=== PATIENT | female | born 1980 | race Caucasian/White ===

== ENCOUNTER 2021-08-01 12:21 | Emergency (ER) | payer MEDICAID, SELFPAY ==
[2021-08-01 12:33] VITALS: BP 142/88; PULSE 100; RESP 18; TEMP 36.4; O2SAT 100
--- NOTE | 2021-08-01 15:03 | ED.EXTPRO ---
HPI - Extremity Problem General Chief complaint: Extremity Problem,Nontraumatic Stated complaint: arm pain Time Seen by Provider: 08/01/21 14:48 History of Present Illness HPI Narrative: 41-year-old female presents the emergency room with pain in her right elbow that radiates to her thumb and index finger. Patient denies injury or trauma. 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 Patient states that she is having difficulty gripping items with her index finger and thumb. Related Data Home Medications Medication Instructions Recorded Confirmed amitriptyline 08/01/21 cyclobenzaprine mg 08/01/21 glipizide mg 08/01/21 hydrochlorothiazide 08/01/21 08/01/21 ibuprofen 08/01/21 meloxicam 08/01/21 metformin mg 08/01/21 sertraline mg 08/01/21 Allergies Allergy/AdvReac Type Severity Reaction Status Date / Time No Known Allergies Allergy Unknown Verified 08/01/21 12:36 Review of Systems Review of Systems: CONSTITUTIONAL: Denies fever, chills, or sweats. EYES: Denies visual changes, redness, or discharge. ENT: Denies rhinorrhea, congestion, sore throat, or otalgia. CARDIOVASCULAR: Denies chest pain, palpitations, or edema. RESPIRATORY: Denies cough or dyspnea. GASTROINTESTINAL: Denies abdominal pain, nausea, vomiting, or diarrhea. GENITOURINARY: Denies dysuria or hematuria. SKIN: Denies rash or itching. MUSCULOSKELETAL: Denies back pain, joint pain, or myalgia. Reports right elbow pain NEUROLOGIC: Denies headache, numbness, dizziness, or weakness. Reports decreased solution developer and pincher solution developer in right hand PSYCHIATRIC: Denies anxiety or depression. [facility] Past Medical History Medical History Anxiety Arthritis Depression Diabetes Ectopic Surgical History Surgical History History of tubal ligation Family History Family History Mother Atrial fibrillation Father Acute myocardial infarction Social History Social History Smoking status: Never smoker Exam Narrative: GENERAL: Well-appearing, well-nourished, and in no acute distress. HEAD: Normocephalic, atraumatic. EYES: PERRLA and EOMI. ENT: Nares clear, no rhinorrhea or epistaxis. Mucous membranes moist. Oropharynx without tonsillar hypertrophy exudate or other lesions. Bilateral TMs pearly barbosa nonbulging NECK: Supple. No adenopathy or masses. No carotid bruits or JVD CHEST: Clear to auscultation. No respiratory distress. No wheezes rales or rhonchi HEART: Regular rate and rhythm. No murmur heard. Normal peripheral pulses. ABDOMEN: Soft, nontender, nondistended, normal active bowel sounds. EXTREMITIES: Normal range of motion. No edema. That is fairly early elevated moves all extremities well. Strength 5/5 in right elbow and right wrist. Equal medical support specialist. SKIN: Warm, dry, no rash. NEURO: No focal deficits. Alert and oriented x3. PSYCH: Normal mood and affect. Course Vital Signs Vital signs: Vital Signs Temperature 36.4 C L 08/01/21 12:33 Pulse Rate 100 08/01/21 12:33 Respiratory Rate 18 08/01/21 12:33 Blood Pressure 142/88 H 08/01/21 12:33 Pulse Oximetry 100 08/01/21 12:33 Temperature 36.4 C L 08/01/21 12:33 Pulse Rate 100 08/01/21 12:33 Respiratory Rate 18 08/01/21 12:33 Blood Pressure 142/88 H 08/01/21 12:33 Pulse Oximetry 100 08/01/21 12:33 Discharge Plan Discharge Clinical Impression: Radial nerve entrapment Patient Disposition: Home, Self-Care Condition: Stable Instructions: Antibiotic Form Prescriptions: New prednisone 20 mg tablet 40 mg PO DAILY 5 Days Qty: 10 RF: 0 naproxen 500 mg tablet 500 mg PO BID Qty: 10 RF: 0 No Action glipizide 10 mg tablet RF: 0 amitriptyli
[2021-08-01] MEDS: KETOROLAC (*BKC) 60 MG/2 ML VIAL IM (15:12)
[2021-08-01 16:00] VITALS: BP 136/79; PULSE 97; RESP 16; O2SAT 98
== END 2021-08-01 16:00 | disposition home or self-care (01) ==
PROVIDERS: Emergency Provider Nurse Practitioner Family; PCP Family Medicine
DX: G58.8 Other specified mononeuropathies (principal); E11.9 Type 2 diabetes mellitus without complications; M19.90 Unspecified osteoarthritis, unspecified site; F41.9 Anxiety disorder, unspecified; F32.A Depression, unspecified; Z79.84 Long term (current) use of oral hypoglycemic drugs
CPT/HCPCS: 96372; 99284; J1100; J1885

== ENCOUNTER 2023-05-02 22:41 | Emergency (ER) | payer OTHER, SELFPAY ==
--- NOTE | ~2023-05-02 | XR_ITS ---
Right Hand Technique: PA, oblique, and lateral views were obtained. Clinical History: Third finger pain and swelling Findings: No acute fracture or dislocation is seen. Osseous alignment is anatomic. Joint spaces are p reserved. Soft tissues are unremarkable. Impression: Unremarkable right hand. Reviewed, dictated and finalized at location . LY SOCIOLOGIST Impression: Unremarkable right hand.
[2023-05-02 22:47] VITALS: BP 126/86; PULSE 100; RESP 14; TEMP 37; O2SAT 98
--- NOTE | 2023-05-02 23:20 | PC.NURSE ---
Assumed care of pt. Report from ABIGAIL Buchanan. Dr Martines at bedside.
--- NOTE | 2023-05-02 23:35 | ED.UPPEXIN ---
HPI - Extremity Injury (Upper) General Chief Complaint: Extremity Injury, Upper Stated Complaint: R middle finger swelling Time Seen by Provider: 05/02/23 23:11 History of Present Illness HPI narrative: This is a 43-year-old female, with history of diabetes, presenting to the emergency department complaining of pain and swelling of the right 3rd finger. The patient states she woke this morning and noticed swelling at the proximal aspect of the right middle finger associated with pain. She describes it as dull and sharp, rated 5/10 and worse with pleural finger, primarily closed fist. She states the swelling has not progressed though some has appeared in the right ring finger. She denies fevers, chills or known trauma. Related Data Home Medications Medication Instructions Recorded Confirmed amitriptyline 50 mg tablet 08/01/21 cyclobenzaprine 10 mg tablet mg 08/01/21 glipizide 10 mg tablet mg 08/01/21 hydrochlorothiazide 25 mg tablet 08/01/21 08/01/21 ibuprofen 800 mg tablet 08/01/21 meloxicam 7.5 mg tablet 08/01/21 metformin 1,000 mg tablet mg 08/01/21 sertraline 100 mg tablet mg 08/01/21 Allergies Allergy/AdvReac Type Severity Reaction Status Date / Time No Known Allergies Allergy Unknown Verified 08/01/21 12:36 Review of Systems Review of Systems: CONSTITUTIONAL: Denies fever, chills, or sweats. CARDIOVASCULAR: Denies chest pain, palpitations, or edema. RESPIRATORY: Denies cough or dyspnea. GASTROINTESTINAL: Denies abdominal pain, nausea, vomiting, or diarrhea. GENITOURINARY: Denies dysuria or hematuria. SKIN: mild swelling of the right 3rd finger Denies rash or itching. MUSCULOSKELETAL: right 3rd finger pain Denies back pain, joint pain, or myalgia. NEUROLOGIC: Denies headache, numbness, dizziness, or weakness. PSYCHIATRIC: Denies anxiety or depression. [facility] Past Medical History Medical History Anxiety Arthritis Depression Diabetes Ectopic Surgical History Surgical History History of tubal ligation Family History Family History Mother Atrial fibrillation Father Acute myocardial infarction Social History Social History Smoking status: Never smoker Exam Narrative: GENERAL: Well-developed, well-nourished, and in no acute distress. HEAD: Normocephalic, atraumatic. CHEST: Clear to auscultation. No respiratory distress. No wheezes rales or rhonchi HEART: Regular rate and rhythm. No murmur heard. Normal peripheral pulses. EXTREMITIES: Mild swelling of the right proximal 3rd finger without erythema. Tender to palpation over the ventral and dorsal aspect. Pain with flexion and extension of the finger. Small amount of swelling is noted at the proximal aspect of the right 4th finger with similar pain. Otherwise normal range of motion. No edema. NEURO: Alert and oriented x3. No focal deficit. Moving all 4 limbs spontaneously PSYCH: Normal mood and affect. Course Course Emergency Course: 23:30 - Bedside ultrasound of the right hand is not concerning for swelling or fluid collection around the flexor tendon of either the 3rd or 4th digits. 00:41 - X-ray by my review was not concerning for fracture, dislocation or bony changes consistent with osteomyelitis. White blood cell count within limits. Hemoglobin slightly decreased at 11.2 with baseline of 12.6 in 2019. ESR elevated at 45. I have some concern for flexor tenosynovitis, however the patient's swelling has not rapidly progressed and her white blood cell count is not elevated. I discussed the patient with hand surgeon, Dr. Arriaga. Will give a an IV dose of antibiotics and discharge with the same and close follow-up. The patient is comfortable with this plan. Discussed return and emergency
[2023-05-02] MEDS: KETOROLAC 30 MG/ML VIAL (*BKC) IM (23:45)
[2023-05-02 23:55] LABS: Basophils Percent Auto 0.3 % (0.2-1.2); Eosinophils Absolute Auto 0.1 K/mm3 (0-0.3); Eosinophils Percent Auto 1.2 % (0-4.4); Hematocrit 35.5 % (37.0-47.0); Hemoglobin 11.2 g/dL (12.0-15.0); Immature Granulocyte Absolute 0.02 K/mm3 (0.00-0.031); Immature Granulocyte Percent A 0.2 % (0-0.5); Lymphocytes Absolute Auto 3.15 K/mm3 (0.9-3.2); Lymphocytes Percent Auto 36.5 % (18.3-44.2); Mean Corpuscular HGB Conc 31.5 g/dl (32-36); Mean Corpuscular Hemoglobin 25.7 pg (26-34); Mean Corpuscular Volume 81.6 fl (80-100); Mean Platelet Volume 9.6 fl (7.4-10.4); Monocytes Absolute Auto 0.4 K/mm3 (0.1-0.6); Monocytes Percent Auto 4.8 % (2.6-8.5); Neutrophils Absolute Auto 4.9 K/mm3 (1.3-6.7); Platelet Count Result 278 k/mm3 (150-375); Red Blood Count 4.35 M/mm3 (4.2-5.4); Red Cell Distribution Width 14.6 % (11.5-14.5); White Blood Count 8.6 K/mm3 (4.5-10.0)
[2023-05-03 00:32] LABS: Erythrocyte Sedimentation Rate 45 mm/hr (0-20)
[2023-05-03 01:31] VITALS: BP 122/75; PULSE 85; RESP 14; O2SAT 98
== END 2023-05-03 01:33 | disposition home or self-care (01) ==
PROVIDERS: Emergency Provider Preventive Medicine Aerospace Medicine
DX: M79.644 Pain in right finger(s) (principal); M79.89 Other specified soft tissue disorders
CPT/HCPCS: 36415; 73130; 85025; 85652; 96365; 96372; 99284; J0696; J1885

== ENCOUNTER 2023-11-22 11:05 | Emergency (ER) | payer OTHER, SELFPAY ==
--- NOTE | ~2023-11-22 | XR_ITS ---
EXAMINATION: XR chest 2V DATE: 11/22/2023 11:35 INDICATION: Lateral left chest pain TECHNIQUE: frontal and lateral views of the chest were obtained. COMPARISON: Chest radiograph dated 04/20/2019 FINDINGS: The lungs remain clear with no focal airspace opacities, pulmonary edema, pleural effusion or pneumot horax. The cardiomediastinal silhouette is normal. Mild thoracic spondylosis. IMPRESSION: 1. No acute cardiopulmonary disease. Reviewed, dictated and finalized at location B.
--- NOTE | 2023-11-22 11:09 | ECG_ITS ---
Test Date: 2023-11-22 11:14:40 Measurements Intervals [place] Rate: 118 P: 83 NC: 143 QRS: 73 QRSD: 94 T: 71 QT: 340 QTc: 477 Interpretive Statements SINUS TACHYCARDIA POSSIBLE LEFT ATRIAL ENLARGEMENT BORDERLINE ST-T WAVE ABNORMALITY- INF/LAT LEADS BASELINE ARTIFACT- I, II, III, AVR, AVL, V2 ABNORMAL ECG No previous ECG available for comparison Electronically Signed On 11-22-2023 11:33:14 CDT by Bo Hernandez D.O.
[2023-11-22 11:15] VITALS: BP 142/92; PULSE 114; RESP 14; TEMP 36.7; O2SAT 98
[2023-11-22 11:52] VITALS: BP 150/96; PULSE 112; PULSE 115; RESP 12; TEMP 36.8; O2SAT 96
--- NOTE | 2023-11-22 12:11 | ED.CHESTPAIN ---
HPI - Chest Pain General Chief Complaint: Chest Pain Stated Complaint: left sided chest pain Time Seen by Provider: 11/22/23 12:10 Source: patient and family Mode of arrival: ambulatory Limitations: no limitations History of Present Illness HPI narrative: 43 years old white female came to the emergency room with her by private car complaining of intermittent pain at the left side of the mid axillary line started 3 days ago. Workup this morning with increased pain sharp, twisting, worse with certain positions and movement and breathing, feels better if she holding her arm against her body. She denies any recent physical activities or trauma. She denies any fever, chills, nausea, vomiting, or difficulty breathing. Patient denies having similar symptoms. History of diabetes hyperlipidemia depression anxiety marijuana use for chronic lower back pain Related Data Home Medications Medication Instructions Recorded Confirmed amitriptyline 50 mg tablet 08/01/21 cyclobenzaprine 10 mg tablet mg 08/01/21 glipizide 10 mg tablet mg 08/01/21 hydrochlorothiazide 25 mg tablet 08/01/21 08/01/21 ibuprofen 800 mg tablet 08/01/21 meloxicam 7.5 mg tablet 08/01/21 metformin 1,000 mg tablet mg 08/01/21 sertraline 100 mg tablet mg 08/01/21 atorvastatin 10 mg tablet 10 mg PO DAILY 05/10/23 insulin detemir U-100 100 unit/mL 40 unit subcut QHS 05/10/23 (3 mL) subcutaneous pen (Levemir FlexPen) liraglutide 0.6 mg/0.1 mL (18 mg/3 1.8 mg subcut DAILY 05/10/23 mL) subcutaneous pen injector (Victoza 2-Jong) Allergies Allergy/AdvReac Type Severity Reaction Status Date / Time No Known Allergies Allergy Unknown Verified 11/22/23 11:59 Review of Systems Review of Systems: All systems reviewed & are unremarkable except as noted in HPI and below PMFSH Past Medical History Medical History Anxiety Arthritis Depression Diabetes Ectopic Surgical History Surgical History History of tubal ligation Family History Family History Mother Atrial fibrillation Father Acute myocardial infarction Social History Social History Smoking status: Never smoker Exam Narrative: General appearance: Well-developed, well-nourished Skin: Normal color Head: Normocephalic, nontraumatic Eyes: Clear conjunctiva ENT: Oropharynx normal, ears normal, nose normal Neck: Supple, nontender Chest and respiratory: Airway patent, no respiratory distress, no accessory muscle use, severe tenderness left mid axillary, left upper chest, left upper back with slight light palpation. No bruises, no swelling or rash. Heart: Regular rate/rhythm Abdomen: Soft, nontender, no organomegaly, quiet bowel sounds Vascular: Normal peripheral pulses, normal capillary refill. Musculoskeletal: Normal range of motion, nontender back Neurologic: Alert and oriented ?3, ACID STRENGTH INSPECTOR is normal as tested, no gross motor deficit Course Vital Signs Vital signs: Vital Signs Temperature 36.7 C 11/22/23 11:15 Pulse Rate 114 H 11/22/23 11:15 Respiratory Rate 14 11/22/23 11:15 Blood Pressure 142/92 H 11/22/23 11:15 Pulse Oximetry 98 11/22/23 11:15 Oxygen Delivery Room Air 11/22/23 11:15 Temperature 36.8 C 11/22/23 11:52 Pulse Rate 112 H 11/22/23 11:52 Respiratory Rate 12 11/22/23 11:52 Blood Pressure 150/96 H 11/22/23 11:52 Pulse Oximetry 96 11/22/23 11:52 Oxygen Delivery Room Air 11/22/23 11:15 MDM - Chest Pain
[2023-11-22 12:16] LABS: Basophils Percent Auto 0.4 % (0.2-1.2); Eosinophils Absolute Auto 0.1 K/mm3 (0-0.3); Eosinophils Percent Auto 1.3 % (0-4.4); Hematocrit 40.3 % (37.0-47.0); Hemoglobin 12.7 g/dL (12.0-15.0); Immature Granulocyte Absolute 0.05 K/mm3 (0.00-0.031); Immature Granulocyte Percent A 0.6 % (0-0.5); Lymphocytes Percent Auto 27.8 % (18.3-44.2); Mean Corpuscular HGB Conc 31.5 g/dl (32-36); Mean Corpuscular Hemoglobin 26.1 pg (26-34); Mean Corpuscular Volume 82.8 fl (80-100); Mean Platelet Volume 9.6 fl (7.4-10.4); Monocytes Absolute Auto 0.5 K/mm3 (0.1-0.6); Monocytes Percent Auto 5.1 % (2.6-8.5); Neutrophils Absolute Auto 5.8 K/mm3 (1.3-6.7); Neutrophils Percent Auto 64.8 % (45.5-73.1); Platelet Count Result 320 k/mm3 (150-375); Red Blood Count 4.87 M/mm3 (4.2-5.4)
[2023-11-22 12:29] LABS: INR 0.9; Prothrombin Time 12.5 Seconds (11.1-14.7)
[2023-11-22 12:31] LABS: Partial Thromboplastin Time 24.3 Seconds (22.3-36.8)
[2023-11-22 12:37] LABS: Alanine Aminotransferase 27 U/L (6-35); Albumin Level 4.8 g/dL (3.5-5.1); Alkaline Phosphatase 108 U/L (38-126); Anion Gap 11 mmol/L (4-12); Aspartate Amino Transferase 36 U/L (14-36); Blood Urea Nitrogen 13 mg/dL (7-17); Calcium 9.4 mg/dL (8.4-10.2); Carbon Dioxide 27 mmol/L (22-30); Chloride 101 mmol/L (98-107); Estimated CRCL calculation 113 ml/min; Estimated Glomerular Filt Rate > 60; Glucose 156 mg/dL (65-110); Lipase 39 U/L (23-300); Potassium 3.5 mmol/L (3.4-5.0); Sodium 139 mmol/L (137-145)
[2023-11-22 12:49] LABS: Troponin I < 0.012 ng/mL (0.000-0.034)
[2023-11-22] MEDS: ONDANSETRON INJ 4 MG/2 ML VIAL IV PUSH (13:24)
[2023-11-22] MEDS: MORPHINE SULFATE (*CRX) 4 MG/ML INJ IV PUSH (13:24)
[2023-11-22 13:45] LABS: D Dimer < 0.27 ug/mL (<0.48)
[2023-11-22 14:46] VITALS: BP 126/93; PULSE 112; RESP 16; TEMP 37.1; O2SAT 98
== END 2023-11-22 14:47 | disposition home or self-care (01) ==
PROVIDERS: Emergency Medicine; Emergency Provider Emergency Medicine; PCP Family Medicine
DX: R07.89 Other chest pain (principal); E11.9 Type 2 diabetes mellitus without complications
CPT/HCPCS: 36415; 71046; 80053; 83690; 84484; 85025; 85380; 85610; 85730; 93005; 96374; 96375; 99284; J2270; J2405

== ENCOUNTER 2024-02-17 08:01 | Emergency (ER) | payer OTHER, SELFPAY ==
--- NOTE | ~2024-02-17 | XR_ITS ---
XR_CERV2-3V_CR Ordering provider: Bogdan Soni MD History: . NECK PAIN RADIATES INTO LT SHOULDER. NKI . Comparison: None. FINDINGS: VERTEBRAL BODIES: Normal height and alignment. No visible fracture or subluxation. The dens is intact . DISK SPACES: Well maintained. PARASPINOUS SOFT TISSUES: No prevertebral soft tissue swelling. IMPRESSION: No acute osseous abnormality cervical spine. Reviewed, dictated and finalized at location A.
[2024-02-17 08:06] VITALS: BP 149/89; PULSE 95; RESP 16; TEMP 36.7; O2SAT 100
--- NOTE | 2024-02-17 08:31 | ED.EXTPRO ---
HPI - Extremity Problem General Chief complaint: Extremity Problem,Nontraumatic Stated complaint: SHOULDER AND BACK PAIN Time Seen by Provider: 02/17/24 08:13 History of Present Illness HPI Narrative: 44 old female presenting to the emergency department for evaluation for recurrent left lateral neck pain. Patient states she did have some shoulder pain approximately a month ago and did have follow-up with her primary care physician. At that time patient was referred to outpatient physical therapy. Patient is unable to track down that paperwork and has been attempting to get follow-up again with primary care physician to have a another referral for physical therapy. Patient states few days ago she woke up was having worsening left lateral neck pain and the pain improved during the day. Patient states she woke up again this morning with similar pain. Patient denies any associated numbness or weakness of the left arm but does report sharp shooting pain of the left arm intermittently. Patient denies any specific falls or injuries. Patient denies any change in bowel bladder habits. Patient has been taking Tylenol and ibuprofen without significant improvement. Related Data Home Medications Medication Instructions Recorded Confirmed amitriptyline 50 mg tablet 08/01/21 cyclobenzaprine 10 mg tablet mg 08/01/21 glipizide 10 mg tablet mg 08/01/21 hydrochlorothiazide 25 mg tablet 08/01/21 08/01/21 ibuprofen 800 mg tablet 08/01/21 meloxicam 7.5 mg tablet 08/01/21 metformin 1,000 mg tablet mg 08/01/21 sertraline 100 mg tablet mg 08/01/21 atorvastatin 10 mg tablet 10 mg PO DAILY 05/10/23 insulin detemir U-100 100 unit/mL 40 unit subcut QHS 05/10/23 (3 mL) subcutaneous pen (Levemir FlexPen) liraglutide 0.6 mg/0.1 mL (18 mg/3 1.8 mg subcut DAILY 05/10/23 mL) subcutaneous pen injector (Victoza 2-Jong) Allergies Allergy/AdvReac Type Severity Reaction Status Date / Time No Known Allergies Allergy Unknown Verified 02/17/24 08:36 Review of Systems Review of Systems: All systems reviewed & are unremarkable except as noted in HPI and below PMFSH Past Medical History Medical History Anxiety Arthritis Depression Diabetes Ectopic Surgical History Surgical History History of tubal ligation Family History Family History Mother Atrial fibrillation Father Acute myocardial infarction Social History Social History Smoking status: Never smoker Exam Narrative: APPEARANCE: Well appearing, no pain, no distress, well-nourished. HEAD: normocephalic, atraumatic. EYES: PERRLA/EOMI, conjunctivae clear. NOSE: Normal no drainage EARS:TMS clear with good light reflex. THROAT: Pharynx clear, no exudate. NECK: Supple. No adenopathy, no masses. RESPIRATORY: Airway patent, respirations nonlabored. Clear to auscultation bilaterally, no rales, rhonchi, wheezing. CARDIOVASCULAR: Regular rate and rhythm without murmurs rubs or gallops. ABDOMINAL: Soft, nontender, nondistended, normal bowel sounds MUSCULOSKELETAL: Moves all extremities. Left lateral trapezius tenderness to palpation. NEURO: Alert. Cranial nerves II through XII intact. Good gait. Good coordination SKIN: Warm, dry. Normal Color Course Course Emergency Course: Patient was discharged home with medications for pain control Vital Signs Vital signs: Vital Signs Temperature 98.1 F 02/17/24 08:06 Pulse Rate 95 02/17/24 08:06 Respiratory Rate 16 02/17/24 08:06 Blood Pressure 149/89 H 02/17/24 08:06 Pulse Oximetry 100 02/17/24 08:06 Oxygen Delivery Room Air 02/17/24 08:06 Temperature 98.1 F 02/17/24 08:06 Pulse Rate 95 02/17/24 08:06 Respiratory Rate 16 02/17/24 08:06 Blood Pressure 149/89 H
[2024-02-17] MEDS: HYDROcodone/acetaminophen (*CRX) 5-325 MG TABLET 1 TAB PO (08:41)
[2024-02-17] MEDS: CYCLOBENZAPRINE HCL 10 MG TABLET PO (08:41)
== END 2024-02-17 09:27 | disposition home or self-care (01) ==
PROVIDERS: Emergency Provider Emergency Medicine; PCP Family Medicine
DX: S16.1XXA Strain of muscle, fascia and tendon at neck level, initial encounter (principal); T14.90XA Injury, unspecified, initial encounter; F41.8 Other specified anxiety disorders; E11.9 Type 2 diabetes mellitus without complications
CPT/HCPCS: 72040; 99283; A4565; A9270

== ENCOUNTER 2024-02-23 19:56 | Emergency (ER) | payer OTHER, SELFPAY ==
--- NOTE | ~2024-02-23 | XR_ITS ---
EXAMINATION: XR_CERV2-3V_CR DATE: 02/23/2024 22:53 INDICATION: Neck pain. TECHNIQUE: 3 views of cervical spine were obtained. COMPARISON: Cervical spine radiographs 02/17/2024 FINDINGS: There is hypolordosis of cervical spine. Vertebral body heights are normal. There is mildly decreased disc height at C5-C6 and C6-C7. There is severe facet joint osteoarthritis at C7-T1. No ce ntral canal stenosis or prevertebral soft tissue swelling. IMPRESSION: 1. Mild cervical spondylosis. Reviewed, dictated and finalized at location A.
--- NOTE | ~2024-02-23 | XR_ITS ---
EXAMINATION: XR shoulder LT min 2V DATE: 02/23/2024 22:53 INDICATION: Left shoulder pain. TECHNIQUE: 4 views of left shoulder were obtained. COMPARISON: None. FINDINGS: Alignment is normal. No fracture. There is mild osteoarthritis of glenohumeral joint and mo derate osteoarthritis of acromioclavicular joint. IMPRESSION: 1. Polyarticular osteoarthritis. Reviewed, dictated and finalized at location A.
[2024-02-23 19:59] VITALS: BP 165/98; PULSE 120; RESP 18; TEMP 36.4; O2SAT 100
[2024-02-23 21:52] VITALS: BP 154/94; PULSE 105; RESP 18; O2SAT 99
--- NOTE | 2024-02-23 23:14 | ED.NECK ---
HPI - Neck Pain/Injury General Chief Complaint: Neck Pain/Injury Stated Complaint: L neck and shoulder pain Time Seen by Provider: 02/23/24 22:48 History of Present Illness HPI Narrative: 44-year-old female with history of anxiety, arthritis, depression, DM presents to the emergency department for left neck and arm pain for greater than 1 week. Patient denies injury or trauma. States the pain in the left side of her neck and into her shoulder and travels down to her elbow. States she has been having intermittent numbness and tingling to the 1st and 2nd digit. States the pain is significantly worse when she tries to use her left shoulder. She denies clumsiness to the left hand or weakness. Denies fever, injury or trauma. Denies bowel or bladder incontinence, urinary retention. She was seen in our emergency department for the same pain on 02/17/2024 and was given [place] and Flexeril which she took with improvement. States she ran of her medications yesterday and is now experiencing pain again. She is being followed by her PCP regarding the pain obtain a referral for PT by her PCP. She states she is supposed to contact PT tomorrow to schedule an appointment. Related Data Home Medications Medication Instructions Recorded Confirmed amitriptyline 50 mg tablet 08/01/21 cyclobenzaprine 10 mg tablet mg 08/01/21 glipizide 10 mg tablet mg 08/01/21 hydrochlorothiazide 25 mg tablet 08/01/21 08/01/21 ibuprofen 800 mg tablet 08/01/21 meloxicam 7.5 mg tablet 08/01/21 metformin 1,000 mg tablet mg 08/01/21 sertraline 100 mg tablet mg 08/01/21 atorvastatin 10 mg tablet 10 mg PO DAILY 05/10/23 insulin detemir U-100 100 unit/mL 40 unit subcut QHS 05/10/23 (3 mL) subcutaneous pen (Levemir FlexPen) liraglutide 0.6 mg/0.1 mL (18 mg/3 1.8 mg subcut DAILY 05/10/23 mL) subcutaneous pen injector (Victoza 2-Jong) Allergies Allergy/AdvReac Type Severity Reaction Status Date / Time No Known Allergies Allergy Unknown Verified 02/23/24 19:57 Review of Systems Review of Systems: All systems reviewed & are unremarkable except as noted in HPI and below PMFSH Past Medical History Medical History Anxiety Arthritis Depression Diabetes Ectopic Surgical History Surgical History History of tubal ligation Family History Family History Mother Atrial fibrillation Father Acute myocardial infarction Social History Social History Smoking status: Never smoker Exam Narrative: GENERAL: Well-appearing, well-nourished, and in no acute distress. HEAD: Normocephalic, atraumatic. EYES: EOMI. ENT: Nares clear, no rhinorrhea or epistaxis. Mucous membranes moist. NECK: No midline cervical spinous tenderness, step-offs or deformities. No nuchal rigidity. Tenderness to the left cervical paraspinous muscles and left trapezius CHEST: Clear to auscultation. No respiratory distress. HEART: Regular rate and rhythm. No murmur heard. Normal peripheral pulses. EXTREMITIES: Diffuse tenderness to the left shoulder and humerus. Full range of motion of elbow, wrist and fingers. Full passive range of motion of left shoulder, limited active range of motion secondary to pain. No erythema, edema or warmth to the shoulder. Radial pulse 2 +. Sensation intact. Radian, medial and ulnar nerves intact on exam. 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 SKIN: Warm, dry, no rash. NEURO: No focal deficits. Alert and oriented x3 Course Vital Signs Vital signs: Vital Signs Temperature 97.6 F 02/23/24 19:59 Pulse Rate 120 H 02/23/24 19:59 Respiratory Rate 18 02/23/24 19:59 Blood Pressure 165/98 H 02/23/24 19:59 Pulse Oximetry 100 02/23/24 19:59 Oxygen Delivery Room Air 02/23/24 19:59
[2024-02-23] MEDS: dexAMETHasone SOD PHOS INJ 10 MG/ML 1 ML VIAL IM (23:20)
[2024-02-23] MEDS: CYCLOBENZAPRINE HCL 10 MG TABLET PO (23:20)
[2024-02-23] MEDS: KETOROLAC 30 MG/ML VIAL (*BKC) IM (23:23)
[2024-02-23] MEDS: LIDOCAINE 5% PATCH 1 PATCH TRANSDERM (23:24)
[2024-02-23 23:36] VITALS: BP 174/93; PULSE 112; RESP 19; O2SAT 100
== END 2024-02-23 23:37 | disposition home or self-care (01) ==
PROVIDERS: Emergency Provider Physician Assistant; PCP Family Medicine
DX: M54.12 Radiculopathy, cervical region (principal); E11.9 Type 2 diabetes mellitus without complications; M19.012 Primary osteoarthritis, left shoulder; F41.9 Anxiety disorder, unspecified; F32.A Depression, unspecified; Z79.85 Long-term (current) use of injectable non-insulin antidiabetic drugs; Z79.84 Long term (current) use of oral hypoglycemic drugs; Z79.899 Other long term (current) drug therapy
CPT/HCPCS: 72040; 73030; 96372; 99284; A9270; J1100; J1885

== ENCOUNTER 2024-05-10 14:02 | Emergency (ER) | payer OTHER, SELFPAY ==
--- NOTE | ~2024-05-10 | CT_ITS ---
CTA brain carotid Ordering provider: Bogdan Soni MD History: . Hypodensity in the area of the foramina of Monro . Comparison: None. Technique: CT angiogram head and neck was performed following timed intravenous injection of contrast . Thin slice axial images and reformatted coronal images were obtained. Three dimensional reformatted images of the brain were also obtained using a [employer] workstation. Radiation reduction technique ut ilized. The dose-length product was 1030.09 mGy-cm. 100 mL Omnipaque 350 was given IV. FINDINGS: HEAD: --ANTERIOR AND MIDDLE CEREBRAL ARTERIES AND BRANCHES: Normal caliber and contour. --INTERNAL CAROTID ARTERIES: Mild atheromatous disease but no significant stenosis. No occlusion. --BASILAR ARTERY AND BRANCHES: Normal caliber and contour. No atheromatous disease. --POSTERIOR CEREBRAL ARTERIES: Normal caliber and contour --POSTERIOR COMMUNICATING ARTERIES: The right continues as the right posterior cerebral artery. The l eft is not visualized which is probably related to congenital absence or small size. --ANEURYSM: None visualized. --BRAIN: Please refer to report of CT head performed the same day. --BONES AND SUPERFICIAL SOFT TISSUES: Please refer to report of CT head performed the same day. Lymph nodes are seen in the left axillary area with the largest measures 1 cm.. --PARANASAL SINUSES AND MASTOIDS: Please refer to report of CT head done the same day. NECK: --RIGHT CERVICAL CAROTID SYSTEM: Mild atheromatous disease of the carotid bulb and proximal internal carotid artery without significant stenosis. Percent stenosis per NASCET criteria is a 0%. No caroti d dissection. Otherwise, no significant atheromatous disease or stenosis of the cervical carotid syst em. --LEFT CERVICAL CAROTID SYSTEM: Mild atheromatous disease of the carotid bulb and proximal internal c arotid artery without significant stenosis. Percent stenosis per NASCET criteria is 0%. No carotid d issection. Otherwise, no significant atheromatous disease or stenosis of the cervical carotid system. --VERTEBRAL ARTERIES: Normal caliber and contour. --VISUALIZED AORTIC ARCH AND BRANCHING VESSELS: Mild atheromatous disease but no significant stenosis . --SOFT TISSUES: Normal. --CERVICAL SPINE: Normal. IMPRESSION: 1. CTA neck. Percent stenosis per NASCET criteria is 0%. 2. No occlusion or significant intracranial vascular stenosis seen. Reviewed, dictated and finalized at location A. GER FLOAT
--- NOTE | ~2024-05-10 | CT_ITS ---
CT brain wo con Ordering provider: Bogdan Soni MD History: 44 years Female with . trauma . Comparison: None. Technique: CT of the head without contrast. Radiation reduction technique utilized. The dose-length product was 605.33 mGy-cm. FINDINGS: BRAIN PARENCHYMA AND CSF SPACES: Small hyperdensity seen in the area of the foramen of Monro which ma y be a tiny colloid cyst versus choroid calcification versus a vascular structure and less likely blo od. Follow-up advised. No midline shift, or mass effect.. The brain parenchyma and CSF spaces are ot herwise normal. VISUALIZED PARANASAL SINUSES: Well aerated. MASTOIDS: Well aerated. BONES: The bones appear intact. SOFT TISSUES: Visualized nasopharynx is normal. Superficial soft tissues are normal. IMPRESSION: No definite acute intracranial findings. Hypodensity in the area of the foramina of Monro described above. Reviewed, dictated and finalized at location A. DCAST JOURNALIST
[2024-05-10 14:04] VITALS: BP 142/84; PULSE 113; RESP 18; TEMP 36.8; O2SAT 100
--- NOTE | 2024-05-10 14:15 | ECG_ITS ---
Test Date: 2024-05-10 14:37:21 Measurements Intervals [place] Rate: 99 P: 68 MI: 143 QRS: 54 QRSD: 97 T: 44 QT: 343 QTc: 441 Interpretive Statements SINUS RHYTHM Compared to ECG 11/22/2023 11:14:40 Sinus tachycardia no longer present Electronically Signed On 05-10-2024 14:49:30 HAIR ROOTING MACHINE OPERATOR by Mychal Antonio M.D.
[2024-05-10 14:36] VITALS: BP 140/77; PULSE 107; RESP 20; O2SAT 100
[2024-05-10 14:43] LABS: Basophils Percent Auto 0.5 % (0.2-1.2); Eosinophils Absolute Auto 0.1 K/mm3 (0-0.3); Eosinophils Percent Auto 1.1 % (0-4.4); Hemoglobin 13.2 g/dL (12.0-15.0); Immature Granulocyte Absolute 0.03 K/mm3 (0.00-0.031); Immature Granulocyte Percent A 0.4 % (0-0.5); Lymphocytes Absolute Auto 2.38 K/mm3 (0.9-3.2); Lymphocytes Percent Auto 28.3 % (18.3-44.2); Mean Corpuscular HGB Conc 32.2 g/dl (32-36); Mean Corpuscular Hemoglobin 26.7 pg (26-34); Mean Platelet Volume 10.4 fl (7.4-10.4); Monocytes Absolute Auto 0.4 K/mm3 (0.1-0.6); Monocytes Percent Auto 4.5 % (2.6-8.5); Neutrophils Absolute Auto 5.5 K/mm3 (1.3-6.7); Neutrophils Percent Auto 65.2 % (45.5-73.1); Platelet Count Result 300 k/mm3 (150-375); Red Blood Count 4.94 M/mm3 (4.2-5.4); Red Cell Distribution Width 14.4 % (11.5-14.5); White Blood Count 8.4 K/mm3 (4.5-10.0)
[2024-05-10 14:54] LABS: Alanine Aminotransferase 33 U/L (6-35); Albumin Level 4.3 g/dL (3.5-5.1); Alkaline Phosphatase 105 U/L (38-126); Anion Gap 6 mmol/L (4-12); Aspartate Amino Transferase 49 U/L (14-36); Bilirubin,Total 0.9 mg/dL (0.2-1.3); Blood Urea Nitrogen 15 mg/dL (7-17); Calcium 9.3 mg/dL (8.4-10.2); Carbon Dioxide 28 mmol/L (22-30); Chloride 101 mmol/L (98-107); Estimated CRCL calculation 105 ml/min; Estimated Glomerular Filt Rate > 60; Glucose 177 mg/dL (65-110); Potassium 3.9 mmol/L (3.4-5.0); Sodium 135 mmol/L (137-145)
[2024-05-10 15:25] LABS: Influenza A QL RT-PCR Negative (Negative); Influenza B QL RT-PCR Negative (Negative); RSV RNA, RT-PCR Negative (Negative); SARS-CoV-2 RNA PCR Negative (Negative)
[2024-05-10 15:39] LABS: BEDSIDEPREGUCG Negative (Negative)
--- NOTE | 2024-05-10 15:51 | ED.GENADULT ---
HPI - General Adult General Chief complaint: Fall Stated complaint: fall x2 days ago, +LOC, dizziness Time Seen by Provider: 05/10/24 14:10 History of Present Illness HPI narrative: [age] female presenting to the emergency department for evaluation after having a fall on Wednesday. Patient states she had chest got in the shower when she had mechanical fall causing her to strike her head, patient does report that she had loss of consciousness. Patient states since Wednesday she has had intermittent dizziness and lightheadedness. Patient reports no further loss of consciousness. Related Data Home Medications ?Medication ?Instructions ?Recorded ?Confirmed ?Last Taken ?Type amitriptyline 50 mg tablet 08/01/21 Unknown History cyclobenzaprine 10 mg tablet mg 08/01/21 Unknown History glipizide 10 mg tablet mg 08/01/21 Unknown History hydrochlorothiazide 25 mg tablet 08/01/21 08/01/21 Unknown History ibuprofen 800 mg tablet 08/01/21 Unknown History meloxicam 7.5 mg tablet 08/01/21 Unknown History metformin 1,000 mg tablet mg 08/01/21 Unknown History sertraline 100 mg tablet mg 08/01/21 Unknown History atorvastatin 10 mg tablet 10 mg PO DAILY 05/10/23 Unknown History insulin detemir U-100 100 unit/mL 40 unit subcut QHS 05/10/23 Unknown History (3 mL) subcutaneous pen (Levemir FlexPen) liraglutide 0.6 mg/0.1 mL (18 mg/3 1.8 mg subcut DAILY 05/10/23 Unknown History mL) subcutaneous pen injector (Victoza 2-Jong) Allergies Allergy/AdvReac Type Severity Reaction Status Date / Time No Known Allergies Allergy Unknown Verified 05/10/24 14:03 Review of Systems Review of Systems: All systems reviewed & are unremarkable except as noted in HPI and below PMFSH Past Medical History Medical History Anxiety Arthritis Depression Diabetes Ectopic Surgical History Surgical History History of tubal ligation Family History Family History Mother Atrial fibrillation Father Acute myocardial infarction Social History Social History Smoking status: Never smoker Exam Narrative: APPEARANCE: Well appearing, no pain, no distress, well-nourished. HEAD: normocephalic, atraumatic. EYES: PERRLA/EOMI, conjunctivae clear. NOSE: Normal no drainage EARS:TMS clear with good light reflex. THROAT: Pharynx clear, no exudate. NECK: Supple. No adenopathy, no masses. RESPIRATORY: Airway patent, respirations nonlabored. Clear to auscultation bilaterally, no rales, rhonchi, wheezing. CARDIOVASCULAR: Regular rate and rhythm without murmurs rubs or gallops. ABDOMINAL: Soft, nontender, nondistended, normal bowel sounds MUSCULOSKELETAL: Moves all extremities. Strength/ROM intact, No edema, No calf tenderness. NEURO: Alert. Cranial nerves II through XII intact. Good gait. Good coordination SKIN: Warm, dry. Normal Color Course Course Emergency Course: patient felt improved and was discharged home Vital Signs Vital signs: Vital Signs Temperature 98.3 F 05/10/24 14:04 Pulse Rate 113 H 05/10/24 14:04 Respiratory Rate 18 05/10/24 14:04 Blood Pressure 142/84 H 05/10/24 14:04 Pulse Oximetry 100 05/10/24 14:04 Oxygen Delivery Room Air 05/10/24 14:04 Temperature 97.8 F 05/10/24 16:47 Pulse Rate 94 05/10/24 16:47 Respiratory Rate 16 05/10/24 16:47 Blood Pressure 127/80 05/10/24 16:47 Pulse Oximetry 97 05/10/24 16:47 Oxygen Delivery Room Air 05/10/24 14:04 Medical Decision Making [facility] Narrative Medical decision making narrative: [age] old female presenting to the emergency department for evaluation after having a head injury on Wednesday. Patient is alert and orientated. Patient is afebrile with no leukocytosis and hemoglobin of 13.2 patient has no acute abnormalities on her CMP patient was negative friend RSV and for COVID. CT head did show possible cyst versus less likely bleed at the [place] [facility]. CTA was ordered and showed no active bleeding. Patient was encouraged of close follow-up with her primary care physician. Vital Signs Vital Signs: Vital Signs Temperature 98.3 F 05/10/24 14:04 Pulse Rate 113 H 05/10/24 14:04 Respiratory Rate 18 05/10/24 14:04 Blood Pressure 142/84 H 05/10/24 14:04 Pulse Oximetry 100 05/10/24 14:04 Oxygen Delivery Room Air 05/10/24 14:04 Temperature 97.8 F 05/10/24 16:47 Pulse Rate 94 05/10/24 16:47 Respiratory Rate 16 05/10/24 16:47 Blood Pressure 127/80 05/10/24 16:47 Pulse Oximetry 97 05/10/24 16:47 Oxygen Delivery Room Air 05/10/24 14:04 Lab Data 05/10/24 14:35 05/10/24 14:35 Labs: Lab Results 05/10/24 05/10/24 05/10/24 Range/Units 14:35 15:34 15:38 WBC 8.4 (4.5-10.0) K/mm3 RBC 4.94 (4.2-5.4) M/mm3 Hgb 13.2 (12.0-15.0) g/dL Hct 41.0 (37.0-47.0) % MCV 83.0 (80-100) fl MCH 26.7 (26-34) pg MCHC 32.2 (32-36) g/dl RDW 14.4 (11.5-14.5) % Plt Count 300 (150-375) k/mm3 MPV 10.4 (7.4-10.4) fl Immature Gran % (Auto) 0.4 (0-0.5) % Neut % (Auto) 65.2 (45.5-73.1) % Lymph % (Auto) 28.3 (18.3-44.2) % [place] % (Auto) 4.5 (2.6-8.5) % Eos % (Auto) 1.1 (0-4.4) % Baso % (Auto) 0.5 (0.2-1.2) % Lymph # (Auto) 2.38 (0.9-3.2) K/mm3 [place] # (Auto) 0.4 (0.1-0.6) K/mm3 Eos # (Auto) 0.1 (0-0.3) K/mm3 Baso # (Auto) 0.0 (0.0-0.1) K/mm3 Abs Immat Gran (auto) 0.03 (0.00-0.031) K/mm3 Absolute Neuts (auto) 5.5 (1.3-6.7) K/mm3 Absolute Nucleated RBC 0.000 (0.0-0.012) K/mm3 Nucleated RBC % 0.0 (0.0-0.2) % Sodium 135 L (137-145) mmol/L Potassium 3.9 (3.4-5.0) mmol/L Chloride 101 (98-107) mmol/L Carbon Dioxide 28 (22-30) mmol/L Anion Gap 6 (4-12) mmol/L BUN 15 (7-17) mg/dL Creatinine 0.80 (0.7-1.0) mg/dL Estim Creat Clear Calc 105 ml/min Estimated GFR > 60 (59 - ) Glucose 177 H (65-110) mg/dL Calcium 9.3 (8.4-10.2) mg/dL Total Bilirubin 0.9 (0.2-1.3) mg/dL AST 49 H (14-36) U/L ALT 33 (6-35) U/L Alkaline Phosphatase 105 (38-126) U/L Total Protein 7.0 (6.3-8.2) g/dL Albumin 4.3 (3.5-5.1) g/dL Urine Color Yellow (Yellow) Urine Appearance Cloudy H (Clear) Urine pH 5.5 (5.0-9.0) Ur Specific [place] 1.035 (1.001-1.035) Urine Protein Negative (Negative) mg/dL Urine Glucose (UA) Negative (Negative) mg/dL Urine Ketones Negative (Negative) mg/dL Ur Blood (Man) Negative (Negative) Urine Nitrate Negative (Negative) Urine Bilirubin Negative (Negative) Urine Urobilinogen 0.2 (<2.0) mg/dL Leukocyte Esterase Rfl 1+ H (Negative) RAVIN/UL Urine RBC 0-2 (0-2) /hpf Urine WBC 6-10 H (0-3) /hpf Ur Squamous Epith Cells Many H (Few) /hpf Urine Bacteria 3+ H /hpf Urine Casts 6-10 Hyaline Casts Present (None) /lpf POC Urine HCG, Qual Negative (Negative) Influenza A (RT-PCR) Negative (Negative) Influenza B (RT-PCR) Negative (Negative) RSV (RT-PCR) Negative (Negative) SARS-CoV-2 RNA (RT-PCR) Negative (Negative) Discharge Plan Discharge Clinical Impression: Head injury Patient Disposition: Home, Self-Care Condition: Stable Instructions: Antibiotic Form, Concussion (ED), Head Injury (ED) Additional Instructions: Your CT scan showed a small hyperdensity seen in the area of the foramen of Monro which may be a tiny colloid cyst versus choroid calcification versus a vascular structure. The CT scan with contrast showed no acute bleeding. Have follow-up with your primary care physician regarding this finding. If you have any worsening symptoms then please call or return to the emergency department. Patient Language: Citizen Of [place] Prescriptions: No Action atorvastatin 10 mg tablet 10 mg PO DAILY Victoza 2-Jong 0.6 mg/0.1 mL (18 mg/3 mL) pen injector 1.8 mg subcut DAILY Levemir FlexPen 100 unit/mL (3 mL) insulin pen 40 unit subcut QHS cefpodoxime 200 mg tablet 400 mg PO Q12H 7 Days Qty: 28 0RF Rx Instructions: must administer with a meal/food glipizide 10 mg tablet amitriptyline 50 mg tablet meloxicam 7.5 mg tablet metformin 1,000 mg tablet cyclobenzaprine 10 mg tablet ibuprofen 800 mg tablet sertraline 100 mg tablet hydrochlorothiazide 25 mg tablet prednisone 20 mg tablet 40 mg PO DAILY 5 Days Qty: 10 0RF naproxen 500 mg tablet 500 mg PO BID Qty: 10 0RF omeprazole 40 mg capsule,delayed release(DR/EC) 40 mg PO DAILY Qty: 30 0RF hydrocodone-acetaminophen 5-325 mg tablet 1 tablet PO Q12H PRN (Reason: pain) Qty: 14 0RF cyclobenzaprine 10 mg tablet 10 mg PO BID PRN (Reason: muscle spasm) Qty: 14 0RF methylprednisolone [Medrol (Jong)] 4 mg tablets,dose pack See Rx Instructions PO .COMPLEX Qty: 21 0RF Rx Instructions: orally per package directions cyclobenzaprine 10 mg tablet 10 mg PO TID PRN (Reason: muscle spasm) Qty: 14 0RF lidocaine 5 % adhesive patch,medicated 1 patch topical DAILY Qty: 15 0RF Rx Instructions: leave on most painful area for up to 12 hrs. do not use more than 1 patch in a 24-hour period. Follow-up/Referrals: Cody,Jennifer Kraus MD [Primary Care Provider] -
[2024-05-10 15:54] LABS: Add Urine Microscopic? YES; Appearance Urine Cloudy (Clear); Bacteria Urine 3+ /hpf; Bilirubin Urine Negative (Negative); Blood Urine Negative (Negative); Color Urine Yellow (Yellow); Glucose Urine UA Negative (Negative); Hyaline Casts Urine Present /lpf; Ketones Urine Negative (Negative); Leukocyte Esterase Ur 1+ LEU/UL (Negative); Nitrate Urine Negative (Negative); Protein Urine Negative (Negative); RBC Urine 0-2 /hpf (0-2); Specific Grav Ur 1.035 (1.001-1.035); Squamous Epithelial Cell Urine Many /hpf (Few); Urobilinogen Urine 0.2 mg/dL (<2.0); pH Urine 5.5 (5.0-9.0)
[2024-05-10 16:47] VITALS: BP 127/80; PULSE 94; RESP 16; TEMP 36.6; O2SAT 97
== END 2024-05-10 16:25 | disposition home or self-care (01) ==
LOC: ANHED 16:02
PROVIDERS: Emergency Provider Emergency Medicine; PCP Family Medicine
DX: S06.9X9A Unspecified intracranial injury with loss of consciousness of unspecified duration, initial encounter (principal); Z20.822 Contact with and (suspected) exposure to COVID-19; E11.9 Type 2 diabetes mellitus without complications; M19.90 Unspecified osteoarthritis, unspecified site; F41.9 Anxiety disorder, unspecified; F32.A Depression, unspecified; Z79.85 Long-term (current) use of injectable non-insulin antidiabetic drugs; Z79.84 Long term (current) use of oral hypoglycemic drugs; Z79.899 Other long term (current) drug therapy; R93.0 Abnormal findings on diagnostic imaging of skull and head, not elsewhere classified; W18.2XXA Fall in (into) shower or empty bathtub, initial encounter
CPT/HCPCS: 36415; 70450; 70496; 70498; 80053; 81001; 81025; 85025; 87086; 87637; 93005; 99284; Q9967

== ENCOUNTER 2024-07-08 10:32 | Emergency (ER) | payer OTHER, SELFPAY ==
[2024-07-08 10:33] VITALS: BP 146/82; PULSE 116; RESP 16; TEMP 36.4; O2SAT 100
--- OUTSIDE RECORDS SUMMARY | 2024-07-08 10:35 | XMS_ITS | Clinical Summary ---
Author Organization [facility] Address [address] [place] [id number] Care Team Providers Care Palaeontologist Name Role Phone Jennifer Ross MD Primary Care Provider [phone] Allergies Active Allergy Reactions Criticality Noted Date Comments Poison Loulou Extract Other (See comments) Low 024 Medications cyclobenzaprine (FLEXERIL) 10 mg tablet Take 1 tablet (10 mg total) by mouth 3 (three) times a day as needed for muscle spasms 15 tablet Active insulin syringe-needle U-100 0.5 mL 31 gauge x 5/16 syringe TRUEplus Insulin 0.5 mL 31 gauge x 5/16 syringe USE DIRECTED Active alcohol swabs pads, medicated daily Acti ve amitriptyline (ELAVIL) 50 mg tablet Active fluticasone propionate (FLONASE) 50 mcg/actuation nasal spray fluticasone propionate 50 mcg/actuation nasal spray,suspension USE 2 SPRAY(S) IN EACH NOSTRIL ONCE DAILY Active glipiZIDE (GLUCOTROL) 10 mg tablet Take 1 tablet (10 mg total) by mouth 2 (two) times a day Active hydroCHLOROthiazi de (HYDRODIURIL) 25 mg tablet hydrochlorothiazide 25 mg tablet Take 1 tablet by mouth once daily Active LEVEMIR 100 unit/mL vial for injection INJECT 40 UNITS UNDER THE SKIN EVERY MORNING AND 30 UNITS EVERY EVENING FOR DIABETES Active Victoza 2-Jong 0.6 mg/0.1 mL (18 mg/3 mL) injection INJECT 1.2 MG UNDER THE SKIN EVERY DAY Active meloxicam (MOBIC) 7.5 mg tablet Take 7.5 mg by mouth 2 (two) times a day Active metFORMIN (GLUCOPHAGE) 1,000 mg tablet Active ondansetron ODT (ZOFRAN-ODT) 4 mg disintegrating tablet DISSOLVE 1 TABLET IN MOUTH ONCE DAILY NEEDED FOR NAUSEA AND VOMITING Active sertraline (ZOLOFT) 100 mg tablet sertraline 100 mg tablet Take 1 tablet by mouth once daily Active TRUEplus Pen Needle 31 gauge x 5/16 needle USE DIRECTED TWO TIMES A DAY Active lancets 33 gauge misc OneTouch Delica Plus Lancet 33 gauge USE DIRECTED THREE TIMES A DAY Active blood glucose diagnostic (OneTouch Verio test strips) strip OneTouch Verio test strips USE DIRECTED THREE TIMES DAILY Active blood-glucose meter misc OneTouch Verio Flex Meter USE DIRECTED THREE TIMES DAILY Active insulin syringe-needle U-100 0.5 mL 31 gauge x 5/16 syringe TRUEplus Insulin 0.5 mL 31 gauge x 5/16 syringe USE DIRECTED THREE TIMES DAILY Active pen needle, diabetic 31 gauge x 1/4 needle TRUEplus Pen Needle 31 gauge x 1/4 USE DIRECTED WITH VICTOZA Active pen needle, diabetic 31 gauge x 5/16 needle TRUEplus Pen Needle 31 gauge x 5/16 USE DIRECTED TWO TIMES A DAY Active atorvastatin (LIPITOR) 10 mg tablet atorvastatin 10 mg tablet TAKE 1 TABLET BY MOUTH ONCE DAILY Active Active Problems Problem Noted Date Diagnosed Date Obstructive sleep apnea 01/20/2023 Headache 09/23/2022 09/23/2022 Morbid obesity 09/23/2022 09/23/2022 Hypersomnia 09/23/2022 BMI 45.0-49.9, adult 09/23/2022 Psychophysiological insomnia 09/23/2022 Family history of sleep apnea 09/23/2022 Nonsmoker 09/23/2022 Restless legs 09/23/2022 Carpal tunnel syndrome on left 02/26/2022 Overview (02/26/2022): Added automatically from request for surgery [id number] Traumatic incomplete tear of left rotator cuff 0 01/13/2022 Pain in joint of left shoulder 09/16/2021 0 09/23/2022 Trigger thumb of right hand 03/25/2021 05/0 07/2022 Depressive disorder 01/28/2021 09/23/2022 Hypertensive disorder 12/24/2020 09/23/2022 Chronic low back pain 12/26/2018 09/23/2022 Diabetes mellitus 07/18/2014 09/23/2022 Medical History Medical History Date Comments Diabetes mellitus (HCC) Thyroid disease Depression Anxiety Family History Medical History Relation Name Comments Cancer Father Heart disease Father Arthritis Mother Cancer Mother Diabetes Mother Gout Mother Heart disease Mother Relation Name Status Comments Father Mother Social History Tobacco Use Types Packs/Day Years Used Date Smoking Tobacco: Never Tobacco Cessation:Counseling Given: Not Answered Comments No Sex and Gender Information Value Date Recorded Sex Assigned at Not on file 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 Gender Identity Not on file Sexual Orientation Not on file 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 Not on file Not on file Not on file house Not on file Not on file Not on file Obstetrics History Last Filed Vital Signs Vital Sign Reading Time Taken Comments Blood Pressure 116/60 09/15/2023 2:10 PM CDT Pulse 112 09/15/2023 2:10 PM CDT Temperature 36.7 C (98.1 F) 09/15/2023 2:10 PM CDT Respiratory Rate 18 09/15/2023 2:10 PM CDT Oxygen Saturation 97% 09/15/2023 2:10 PM CDT Inhaled Oxygen Concentration - - Weight 138.3 kg (305 lb) 09/15/2023 2:10 PM CDT Height 167.6 cm (5' 6 ) 09/15/2023 2:10 PM CDT Body Mass Index 49.23 09/15/2023 2:10 PM CDT Plan of Treatment Health Maintenance Due Date Last Done Comments Albumin Creatinine Ratio, Urine 1980 Breast Cancer Screening-Mammogram 1980 Cervical Cancer Screening 1980 Depression Screening 1980 Hemoglobin A1C 1980 Hepatitis C Screening 1980 eGFR 1980 Dilated Eye Exam 1980 Foot Exam 1980 Lipid Panel 1980 Varicella Vaccines (1 of 2 - 13+ 2-dose series) 02/08/1993 Hepatitis B Screening 02/08/1998 Regular Well Visit/Exam 18-64 02/08/1998 Pneumococcal vaccine <65 (2 of 2 - PCV) 10/13/2016 10/14/2015 Covid-19 Vaccine (3 - season) 2024 05/12/2021, 09/19/2020 Influenza Vaccine (#1) 2024 , 04/30/2020, 07/02/2017, Additional history exists DTaP/Tdap/Td Vaccine (2 - Td or Tdap) 10/13/2025 10/14/2015 HPV Vaccines Aged Out No longer eligi ble based on patient's age to complete this topic Insurance [facility] Care Teams Palaeontologist Relationship Specialty Start Date End Date Jennifer Ross MD PCP - General Hide Inspector 06/06/21
--- OUTSIDE RECORDS SUMMARY | 2024-07-08 10:35 | XMS_ITS | Clinical Summary ---
Author Organization [facility] Address [address] [place] [address] Care Team Providers Care Pinmaker Name Role Phone Jennifer Ross MD Primary Care Provider [phone] Allergies Active Allergy Reactions Criticality Noted Date Comments Poison Loulou Extract Unknown 03/25/2021 Medications metFORMIN 1000 MG tablet 02/29/20 21 Active meloxicam 7.5 MG tablet 02/17/20 21 Active sertraline 100 MG tablet sertraline 100 mg tablet TAKE 1 TABLET BY MOUTH ONCE DAILY Active ondansetron 4 MG disintegrating tablet ondansetron 4 mg disintegrating tablet Active liraglutide (VICTOZA) 18 MG/3ML injection Victoza 3-Jong 0.6 mg/0.1 mL (18 mg/3 mL) subcutaneous pen injector Start o.1 mL daily X 1 week, then increase to 0.2mL daily Active insulin detemir (LEVEMIR) 100 UNIT/ML injection every 12 (twelve) hours. Active cyclobenzaprine 10 MG tablet 02/29/20 21 Active amitriptyline 50 MG tablet amitriptyline 50 mg tablet TAKE 1 TABLET BY MOUTH AT BEDTIME Active glipiZIDE 10 MG tablet glipizide 10 mg tablet TAKE 1 TABLET BY MOUTH TWICE DAILY Active Acetaminophen (TYLENOL ARTHRITIS PAIN OR) Active Active Problems Problem Noted Date Diagnosed Date Trigger thumb of right hand 03/25/2021 Encounters Date Type Department Care Team Description 04/25/2024 Discharge [facility] [place]patient [place] [address] Pavel Ngo, PT from Last 3 Months Family History Medical History Relation Comments Cancer Father Heart Attack Father Cancer Mother Heart Disease Mother Relation Status Comments Father Mother Social History Tobacco Use Types Packs/Day Years Used Date Smoking Tobacco: Never Smokeless Tobacco: Never Tobacco Cessation:Counseling Given: No Alcohol Use Standard Drinks/Week Comments Not Currently 0 (1 standard drink = 0.6 oz pur e alcohol) PHQ-2 Answer Date Recorded PHQ-2 Score - If the patient scores above 3, please move on to questions 3-9 0 03/25/2021 Comments Unknown Sex and Gender Information Value Date Recorded Sex Assigned at Not on file Legal Sex Female 4:48 PM CDT Gender Identity Female 10/01/2021 11:08 AM CDT Sexual Orientation Straight 10/01/2021 11 :08 AM CDT Last Filed Vital Signs Vital Sign Reading Time Taken Comments Blood Pressure 120/90 03/25/2021 2:01 PM CDT Pulse 95 03/25/2021 2:01 PM CDT Temperature - - Respiratory Rate - - Oxygen Saturation - - Inhaled Oxygen Concentration - - Weight 138.1 kg (304 lb 6.4 oz) 03/25/2021 2:01 PM CDT Height - - Body Mass Index - - Plan of Treatment Health Maintenance Due Date Last Done Comments Cervical Cancer Screening Pap Smear (Age 30 to 64) Every 3 Years 1980 Annual Physical 02/08/1983 Hepatitis C 02/08/1998 Hepatitis B Vaccines (1 of 3 - 19+ 3-dose series) 02/08/1999 Cervical Cancer Screening Pap with HPV Testing (Age 30 to 64) Every 5 Years 02/08/2010 Cervical Cancer Screening with HPV 02/08/2010 Mammogram Screening 2020 COVID-19 Vaccine ( season) 2024 08/04/2022, 05/12/2021, 09/19/2020 DTaP, Tdap and Td Vaccines (2 - Td or Tdap) 10/13/2025 10/14/2015 Pneumococcal Vaccine: Pediatrics (0 to 5 Years) and At-Risk Patients (6 to 64 Years) Aged Out 10/14/2015 No longer eligible based on patient's age to complete this topic Influenza Adult Completed 02/01/2024, 12/2020, 04/30/2020, Additional history exists HPV Vaccines Aged Out No longer eligi ble based on patient's age to complete this topic Meningococcal B Vaccine Aged Out No l onger eligible based on patient's age to complete this topic Meningococcal Vaccine Aged Out No wendy vianey eligible based on patient's age to complete this topic RSV Immunizations Under 20 Months Aged Out No longer eligible based on patient's age to complete this topic Insurance [employer] Care Teams Pinmaker Relationship Specialty Start Date End Date Jennifer Ross MD [address] [facility] [id number] [place], [place] [id number] PCP - General 10/14/15
--- OUTSIDE RECORDS SUMMARY | 2024-07-08 10:35 | XMS_ITS | Referral Summary ---
Author Organization [facility] Address [address] [place] [phone] Care Team Providers Care Prototype Model Maker Name Role Phone Jennifer Ross MD Primary Care Provider [phone] Allergies Active Allergy Reactions Criticality Noted Date [...] (02/26/2022): Added automatically from request for surgery [id number] Traumatic incomplete tear of left rotator cuff 0 01/13/2022 Pain in joint of left shoulder 09/16/2021 0 09/23/2022 Trigger thumb of right hand 03/25/2021 05/0 07/2022 Depressive disorder 01/28/2021 09/23/2022 Hypertensive disorder 12/24/2020 09/23/2022 Chronic low back pain 12/26/2018 09/23/2022 Diabetes mellitus 07/18/2014 09/23/2022 Social History Tobacco Use Types Packs/Day Years Used Date Smoking Tobacco: Never Tobacco Cessation:Counseling Given: Not Answered Comments No Sex and Gender Information Value Date Recorded Sex Assigned at Not on file 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
--- OUTSIDE RECORDS SUMMARY | 2024-07-08 10:36 | XMS_ITS | Data Portability ---
Author Organization [facility] Angel WEISSwicho Saxena Address [address] [place] [address] Care Team Providers Care Store Assistant Name Role Phone IRINA ROSS Primary Care Provider Assessment No assessment recorded. Plan of Treatment Reminders Order Date Submit Date Provider Last Modified By Organization Details Last Modified Time Details Appointments ANY 15 2024 11:00A M Irina Ross MD Not available Not available Not available Lab HbA1c (hemog lobin A1c), blood 2024 025 [email or web address] In-Office Order, Internal Use Only DO Not Attach Compendium DO Not Attach Compendium, Do Not Delete/merge, [id number] 06/27/2024 20:16:01 HbA1c (hemog lobin A1c), blood 2023 024 [email or web address] In-Office Order, Internal Use Only DO Not Attach Compendium DO Not Attach Compendium, Do Not Delete/merge, [id number] 03/24/2024 12:39:59 albumi n/crea tinine , mass ratio, urine 2023 024 [facility], [address], [address], [place], [address], 03/25/2024 09:14:34 lipid panel, serum 2023 024 [facility], [address], [address], [place], [address], 03/25/2024 09:14:36 CMP, serum or plasma 2023 024 [facility], [address] [address], [place], [address], 03/25/2024 09:14:37 HbA1c (hemog lobin A1c), blood 2023 024 [email or web address] In-Office Order, Internal Use Only DO Not Attach Compendium DO Not Attach Compendium, Do Not Delete/merge, [id number] 12/14/2023 13:34:33 CMP, serum or plasma 2023 024 [facility], [address] [facility] [address], [address], [place], [address], 06/15/2023 14:37:51 lipid panel, serum 2023 024 [facility], [address], [address], [place], [address], 06/15/2023 14:37:50 albumi n/crea tinine , mass ratio, urine 2023 024 [facility], [address], [address], [place], [address], 06/15/2023 14:37:51 HbA1c (hemog lobin A1c), blood 2023 024 [email or web address] In-Office Order, Internal Use Only DO Not Attach Compendium DO Not Attach Compendium, Do Not Delete/merge, [id number] 06/15/2023 20:32:59 Referral physic al therap ist referr al - 43yo F with cervic al radicu lopath y X 4-6 weeks. please evalua te and treat. 2023 024 [facility], [facility] [facility], [place], [address], 02/22/2024 13:11:38 Procedures None record ed. Surgeries None record ed. Imaging MRI, cervic al spine, w/o contra st [address] Scheduling, [facility], [place], [address], 05/04/2024 11:07:39 Medication Orders topira mate 50 mg tablet [address] [facility] [address] [facility], [address] [place] [address], [id number], 06/28/2024 09:54:57 Levemi r U-100 Insuli n 100 unit/m L subcut aneous soluti on [address], [address] [place] [address], [id number], 06/28/2024 10:01:14 cyclob enzapr ine 5 mg tablet [address] [facility], [address] [place] [address], [id number], 06/28/2024 10:00:39 predni sone 10 mg tablet 2023 025 [facility], [address] [place] [address], [id number], 06/28/2024 10:01:11 fluoxe mehul 20 mg capsul e [address] [facility], [address] [place] [address], [id number], 02/01/2024 11:14:28 fluoxe mehul 10 mg capsul e 2023 024 [facility], [address] [place] [address], [id number], 02/01/2024 11:15:08 cyclob enzapr ine 10 mg tablet [address] [facility], [address] [place], [address], 03/24/2024 12:50:21 glipiz jacoby 10 mg tablet 2023 024 [facility], [address] [place], [address], 06/15/2023 14:47:14 Patient TargetsNo targets recorded. Patient Instructions Encounter Date Encounter Id Patient Instructions Last Modified By Organization Details Last Modified Time 06/15/2023 [id number] A healthy lifestyle: care instructions ana8 Not available 06/15/2023 20:33:28 12/14/2023 [id number] A healthy lifestyle: care instructions Not available 12/14/2023 13:56:32 02/01/2024 [id number] A healthy lifestyle: care instructions Not available 02/01/2024 11:33:06 06/27/2024 [id number] A healthy lifestyle: care instructions Not available 06/28/2024 10:03:55 Reason for Referral Physical Therapist Referral for Cervical radiculopathy 43yo F with cervical radiculopathy X 4-6 weeks. please evaluate and treat. Referring Physician: Irina Ross, Record Searcher, Encounter Date: 12/14/2023 Results Created Date Observation Date Name Description Value Unit Range Abnormal Flag Note LastModifiedBy Organization Detail LastModifiedTime 06/15/1906/15/2023 HbA1c (hemo globi n A1c), blood HbA1c 6.6 Not Available In-Office Order Internal Use Only DO Not Attach Compendium DO Not Attach Compendium, Do Not Delete/merge, [id number] 06/15/2023 14:49:50 12/14/19 24 12/14/2023 HbA1c (hemo globi n A1c), blood HbA1c 6.8 Not Available In-Office Order Internal Use Only DO Not Attach Compendium DO Not Attach Compendium, Do Not Delete/merge, [id number] 12/14/2023 12:52:14 03/24/20 24 03/25/2024 ALBUM IN/CR EATIN INE RATIO ,URIN E creatinine, urine 44.3 mg/dL notest ab. Not Available [facility] ([facility]) [address] [facility], [place], [address], 03/25/2024 09:14:34 03/24/20 24 03/25/2024 ALBUM IN/CR EATIN INE RATIO ,URIN E albumin, urine 5.8 ug/mL notest ab. Not Available [facility] ([facility]) [address] [facility], [place], [address], 03/25/2024 09:14:34 03/24/20 24 03/25/2024 ALBUM IN/CR EATIN INE RATIO ,URIN E alb/creat ratio 13 mg/g_ creat 0-29 Janis l: 0 - 29 Moder ately incre ased: 30 - 300 Sever vivek incre ased: >300 Not Available [facility] ([facility]) [address] [facility], [place], [address], 03/25/2024 09:14:34 03/24/20 24 03/25/2024 LIPID PANEL cholesterol, total 175 mg/dL 100-19 9 Not Available [facility] ([facility]) [address] [facility], [place], [address], 03/25/2024 09:14:35 03/24/20 24 03/25/2024 LIPID PANEL triglyceride s 215 mg/dL 0-149 above high normal Not Available [facility] ([facility]) [address] [place], [address], 03/25/2024 09:14:35 03/24/20 24 03/25/2024 LIPID PANEL HDL cholesterol 43 mg/dL >39 Not Available [facility] ([facility]) [address] [facility], [place], [address], 03/25/2024 09:14:35 03/24/20 24 03/25/2024 LIPID PANEL VLDL cholesterol kaylynn 37 mg/dL 5-40 Not Available [facility] ([facility]) [address] [facility], [place], [address], 03/25/2024 09:14:35 03/24/20 24 03/25/2024 LIPID PANEL LDL chol calc ([facility]) 95 mg/dL 0-99 Not Available [facility] ([facility]) [address] [facility], [place], [address], 03/25/2024 09:14:35 03/24/20 24 03/25/2024 CMP14 +EGFR glucose 356 mg/dL 70-99 above high normal Not Available [facility] ([facility]) [address] [facility], [place], [address], 03/25/2024 09:14:37 03/24/20 24 03/25/2024 CMP14 +EGFR BUN 12 mg/dL 6-24 Not Available [facility] ([facility]) [address] [facility], [place], [address], 03/25/2024 09:14:37 03/24/20 24 03/25/2024 CMP14 +EGFR creatinine 0.75 mg/dL 0.57-1 .00 Not Available [facility] ([facility]) [address] [facility], [place], [address], 03/25/2024 09:14:37 03/24/20 24 03/25/2024 CMP14 +EGFR eGFR 101 mL/mi n/1.7 3 >59 Not Available [facility] ([facility]) [address] [facility], [place], [address], 03/25/2024 09:14:37 03/24/2003/25/2024 CMP14 +EGFR BUN/creatini ne ratio 16 9-23 Not Available [facility] ([facility]) [address] [facility], [place], [address], 03/25/2024 09:14:37 03/24/20 24 03/25/2024 CMP14 +EGFR sodium 134 mmol/ L 134-14 4 Not Available [facility] ([facility]) [address] [place], [address], 03/25/2024 09:14:37 03/24/2003/25/2024 CMP14 +EGFR potassium 3.9 mmol/ L 3.5-5. 2 Not Available [facility] ([facility]) [address] [facility] [place], [address], 03/25/2024 09:14:37 03/24/2003/25/2024 CMP14 +EGFR chloride 94 mmol/ L 96-106 below low normal Not Available [facility] ([facility]) [address] [place], [address], 03/25/2024 09:14:37 03/24/2003/25/2024 CMP14 +EGFR carbon dioxide, total 27 mmol/ L 20-29 Not Available [facility] ([facility]) [address] [facility], [place], [address], 03/25/2024 09:14:37 03/24/2003/25/2024 CMP14 +EGFR calcium 9.1 mg/dL 8.7-10 .2 Not Available [facility] ([facility]) [address] [facility], [place], [address], 03/25/2024 09:14:37 03/24/2003/25/2024 CMP14 +EGFR protein, total 6.9 g/dL 6.0-8. 5 Not Available [facility] ([facility]) [address] [facility] [place], [address], 03/25/2024 09:14:37 03/24/2003/25/2024 CMP14 +EGFR albumin 4.1 g/dL 3.9-4. 9 Not Available [facility] ([facility]) [address] [facility] [place], [address], 03/25/2024 09:14:37 03/24/2003/25/2024 CMP14 +EGFR globulin, total 2.8 g/dL 1.5-4. 5 Not Available [facility] ([facility]) [address] [facility], [place], [address], 03/25/2024 09:14:37 03/24/20 24 03/25/2024 CMP14 +EGFR bilirubin, total 0.3 mg/dL 0.0-1. 2 Not Available [facility] ([facility]) [address] [facility], [place], [address], 03/25/2024 09:14:37 03/24/20 24 03/25/2024 CMP14 +EGFR alkaline phosphatase 115 IU/L 44-121 Not Available [facility] ([facility]) [address] [facility], [place], [address], 03/25/2024 09:14:37 03/24/20 24 03/25/2024 CMP14 +EGFR AST (SGOT) 13 IU/L 0-40 Not Available [facility] ([facility]) [address] [facility], [place], [address], 03/25/2024 09:14:37 03/24/20 24 03/25/2024 CMP14 +EGFR ALT (SGPT) 14 IU/L 0-32 Not Available [facility] ([facility]) [address] [facility], [place], [address], 03/25/2024 09:14:37 03/24/20 24 03/24/2024 HbA1c (hemo globi n A1c), blood HbA1c 10.6 Not Available In-Office Order Internal Use Only DO Not Attach Compendium DO Not Attach Compendium, Do Not Delete/merge, [id number] 03/24/2024 12:13:54 06/27/19 25 06/27/2024 HbA1c (hemo globi n A1c), blood HbA1c 9.9 Not Available In-Office Order Internal Use Only DO Not Attach Compendium DO Not Attach Compendium, Do Not Delete/merge, [id number] 06/27/2024 16:28:48 02/17/20 24 02/17/2024 XR, cervi kaylynn spine No observ ation record ed. [address], [place], [address], 02/23/2024 13:16:30 02/24/20 24 02/23/2024 XR, cervi kaylynn spine No observ ation record ed. [address], [place], [address], 02/24/2024 10:19:02 05/10/20 24 05/10/2024 CT, head + brain , w/o contr ast No observ ation record ed. [address], [place], [address], 05/14/2024 12:32:43 Result Notes None recorded. Problems Name Problem SNOMED Code Status Onset Date Resolution Date Notes Provider Name and Address Organization Details Recorded Time Chronic low back pain 282353242 Active 2018 Jennifer bowen RN null, [place] - [facility] 9 09:02:01 Hyperten sive disorder 34721546 Active 2020 Irina Ross MD Attn: Yong dunham,[address] [place], [address], [place] [facility] 3 21:28:07 Depressi ve disorder 23354092 Active 2020 Irina Ross MD Attn: Yong dunham,[address] [place], [address], [place] [facility] 3 21:28:07 Pain of left shoulder joint 58763371387 760730 Completed 202106/01/2022 Irina Ross MD Attn: Yong dunham,[address] [place], [address], [place] [facility] 3 21:28:12 Diabetes mellitus 90801307 Active 2014 Glucose >400 at ER Thania Hong MA null, [place] - [facility] 6 12:51:08 Morbid obesity 557131828 Active Irina Ross MD Attn: Yong dunham,[address] [facility], [place], [address], [facility] 3 21:28:07 CT of head abnormal 050440632 Active 202305/10/24 CT needs f/u MRI Irina Ross MD Attn: Yong dunham,[address] [facility], [place], [address], [facility] 4 12:32:27 Headache 60610816 Active Irina Ross MD Attn: Yong dunham,[address] [facility], [place], [address], [facility] 3 21:28:07 Problem Notes None recorded. Procedures Surgical History Date Name Laterality Status Provider Name and Address Organization Details Recorded Time Other completed Irina Ross MD Attn: Accounting,[address] [facility], [place], [address], [facility] 11/29/2014 11:29:16 Imaging Results Imaging Date Name Status LastModified by Organiz ation Details LastModified Time 02/17/2024 XR, cervical spine completed [address], [address], 02/23/2024 13:16:30 02/23/2024 XR, cervical spine completed [address], [address], 02/24/2024 10:19:02 05/10/2024 CT, head + brain, w/o contrast completed [address], [address], 05/14/2024 12:32:43 Procedure Notes None recorded. Medical Equipment None Reported. Allergies Allergen ID Allergen Name Allergen Category Reaction Reaction Severity Criticality Documentation Date Start Date Code Code System Note Provider Name and Address Organization Details Recorded Time 459150 poison kirstin extract environme nt Not available Not available Not available 01/28/2021 63607 6 RxNorm Not Available Not Available Not Available No known drug allergies Medications Name Sig Start Date Stop Date Status Note LastModified by Organization Details LastModified Time Prescript ion - Prior Authoriza tion Request active Not Available Not Available Not Available cyclobenz aprine 10 mg tablet TAKE 1 TABLET BY MOUTH THREE TIMES DAILY 03/24 completed Not Available Not Available Not Available metformin 500 mg tablet Take 1 tablet twice a day by oral route. 11/29 completed Not Available Not Available Not Available BD Alcohol Swabs USE 1 SWAB EXTERNAL LY ONCE DAILY active Not Available Not Available No t Available prednison e 10 mg tablet TAKE 4 TABLETS BY MOUTH ONCE DAILY FOR 3 DAYS, THEN 3 TABLETS ONCE DAILY FOR 3 DAYS,THE N 2 TABLETS DAILY FOR 2 DAYS,THE N 1 TABLET DAILY FOR 3 DAYS THEN 1/2 TABLET DAILY FOR 3 DAYS 06/28 completed Not Available Not Available Not Available clindamyc in HCl 300 mg capsule 06/15 completed Not Available Not Available Not Available atorvasta tin 10 mg tablet TAKE 1 TABLET BY MOUTH ONCE DAILY active Not Available Not Available No t Available cefpodoxi me 200 mg tablet Take by oral route for 7 days. 06/15 completed Not Available Not Available Not Available ibuprofen 800 mg tablet TAKE 1 TABLET BY MOUTH THREE TIMES DAILY NEEDED 12/13 completed Not Available Not Available Not Available hydrocodo ne 5 mg-acetam inophen 325 mg tablet TAKE 1 TABLET BY MOUTH EVERY 12 HOURS NEEDED FOR PAIN 03/24 completed Not Available Not Available Not Available prochlorp erazine maleate 5 mg tablet TAKE 1 TABLET BY MOUTH EVERY 6 HOURS NEEDED FOR HEADACHE active Not Available Not Available No t Available glipizide 10 mg tablet TAKE 1 TABLET BY MOUTH ONCE DAILY IN THE MORNING active Not Available Not Available No t Available prednison e 20 mg tablet TAKE 2 TABLETS BY MOUTH ONCE DAILY FOR 5 DAYS 09/08 completed Not Available Not Available Not Available sertralin e 100 mg tablet TAKE 1 TABLET BY MOUTH ONCE DAILY 12/13 completed Not Available Not Available Not Available Lantus U-100 Insulin 100 unit/mL subcutane ous solution Inject 30 units twice a day by subcutan eous route for 30 days. 06/03 completed Not Available Not Available Not Available acetamino phen 300 mg-codein e 15 mg tablet 12/13 completed Not Available Not Available Not Available prochlorp erazine maleate 10 mg tablet TAKE 1 TABLET BY MOUTH EVERY 6 HOURS NEEDED active 05/27/20 rx sent for 5mg #15/2 refills. Confirme d with pharm pt has refills remainin g on 5mg. Pharm states pt picked up 5mg tabs 05/27/20 and 10mg tabs 06/06/20. Not Available Not Available Not Available omeprazol e 40 mg capsule,d elayed release TAKE 1 CAPSULE BY MOUTH ONCE DAILY active Not Available Not Available No t Available tramadol 50 mg tablet Take by oral route for 20 days. 06/01 completed Not Available Not Available Not Available amitripty line 50 mg tablet TAKE 1 TABLET BY MOUTH ONCE DAILY AT BEDTIME 06/28 completed Not Available Not Available Not Available amoxicill in 500 mg tablet 12/13 completed Not Available Not Available Not Available meloxicam 7.5 mg tablet TAKE 1 TABLET BY MOUTH TWICE DAILY 06/01 completed Not Available Not Available Not Available alprazola m 0.25 mg tablet 11/21 completed Not Available Not Available Not Available citalopra m 20 mg tablet TAKE 1 TABLET BY MOUTH ONCE DAILY 01/28 completed Not Available Not Available Not Available amitripty line 25 mg tablet TAKE 1 TABLET BY MOUTH ONCE DAILY AT BEDTIME active Not Available Not Available No t Available dicyclomi ne 20 mg tablet 11/21 completed Not Available Not Available Not Available metformin 1,000 mg tablet TAKE 1 TABLET BY MOUTH TWICE DAILY active Not Available Not Available No t Available prednison e 50 mg tablet TAKE 1 TABLET BY MOUTH ONCE DAILY FOR 5 DAYS 09/08 completed Not Available Not Available Not Available lidocaine 5 % topical patch APPLY ONE PATCH TOPICALL Y TO CLEAN, DRY SKIN. LEAVE ON FOR 12 HOURS THEN REMOVE. MUST WAIT AT LEAST 12 HOURS BEFORE APPLYING PATCH(ES ) AGAIN. active Not Available Not Available No t Available fluoxetin e 10 mg capsule TAPER OFF OF SERTRALI NE, START 1 CAPSULE BY MOUTH ONCE DAILY FOR 7 DAYS, THEN INCREASE TO 2 CAPSULES BY MOUTH DAILY 01/31 completed Not Available Not Available Not Available hydrochlo rothiazid e 25 mg tablet TAKE 1 TABLET BY MOUTH ONCE DAILY active Not Available Not Available No t Available ibuprofen 600 mg tablet 12/13 completed Not Available Not Available Not Available methylpre dnisolone 4 mg tablets in a dose pack 03/24 completed Not Available Not Available Not Available ondansetr on 4 mg disintegr ating tablet DISSOLVE 1 TABLET IN MOUTH ONCE DAILY NEEDED FOR NAUSEA AND VOMITING active Not Available Not Available No t Available cefdinir 300 mg capsule TAKE 1 CAPSULE BY MOUTH EVERY 12 HOURS WITH A MEAL FOR 7 DAYS 06/15 completed Not Available Not Available Not Available fluoxetin e 20 mg capsule TAKE 1 CAPSULE BY MOUTH ONCE DAILY active Not Available Not Available No t Available fluticaso ne propionat e 50 mcg/actua tion nasal spray,martha pension USE 2 SPRAY(S) IN EACH NOSTRIL ONCE DAILY active Not Available Not Available No t Available sertralin e 50 mg tablet TAKE 1 TABLET BY MOUTH ONCE DAILY 01/28 completed Not Available Not Available Not Available glipizide 5 mg tablet TAKE ONE TABLET BY MOUTH TWICE DAILY 07/15 completed Not Available Not Available Not Available naproxen 500 mg tablet TAKE 1 TABLET BY MOUTH TWICE DAILY active Not Available Not Available No t Available oxycodone 5 mg tablet TAKE 1 TABLET BY MOUTH EVERY 4 HOURS NEEDED FOR PAIN 06/01 completed Not Available Not Available Not Available cyclobenz aprine 5 mg tablet Take 1 tablet by mouth three times daily as needed 06/28 completed Not Available Not Available Not Available topiramat e 50 mg tablet Take 1 tablet twice a day by oral route. 2024 active Not Available Not Available Not Avai lable Levemir U-100 Insulin 100 unit/mL subcutane ous solution INJECT 45 UNITS UNDER THE SKIN EVERY MORNING AND 30 UNITS EVERY EVENING FOR DIABETES 2024 active Not Available Not Available Not Avai lable OneTouch Verio test strips USE 1 STRIP TO CHECK GLUCOSE THREE TIMES DAILY DIRECTED active Not Available Not Available No t Available TRUEplus Insulin 0.5 mL 31 gauge x 5/16 syringe USE DIRECTED THREE TIMES DAILY active Not Available Not Available No t Available TRUEplus Insulin 0.5 mL 30 gauge x 5/16 syringe USE ONE with instulin twice daily active Not Available Not Available No t Available Victoza 3-Jong 0.6 mg/0.1 mL (18 mg/3 mL) subcutane ous pen injector INJECT 1.8 MG SUBCUTAN EOUSLY ONCE DAILY active Not Available Not Available No t Available Trulicity 0.75 mg/0.5 mL subcutane ous pen injector Inject 0.75 mg every week by subcutan eous route. 02/17 completed will adjust dosing monthly until 4.5mg Not Available Not Available Not Available OneTouch Verio Flex Meter USE DIRECTED 2023 active Not Available Not Available Not Avai lable TRUEplus Pen Needle 31 gauge x 5/16 USE DIRECTED TWO TIMES A DAY 06/01 completed Not Available Not Available Not Available TRUEplus Pen Needle 31 gauge x 1/4 USE 1 PEN NEEDLE ONCE DAILY TO ADMINIST ER MEDICATI ON active Not Available Not Available No t Available OneTouch Delica Plus Lancet 33 gauge USE DIRECTED THREE TIMES A DAY active Not Available Not Available No t Available Vitals Date Recorded Body height Heart rate Oxygen saturation Oxygen saturation in Arterial blood by Pulse oximetry Body mass index (BMI) Body weight Body temperature Systolic blood pressure Diastolic blood pressure Provider Name and Address Organization Details Last Updated DateTime 4 166.37 cm 103 /min 99 % 99 % 48.5 kg/m2 880076. 34 g 97.3 [degF] 135 mm[Hg] 83 mm[Hg] Carol Ann Hickey MA [facility] 4 14:24:18 Date Recorded Body height Body mass index (BMI) Body weight Body temperature Heart rate Systolic blood pressure Diastolic blood pressure Provider Name and Address Organization Details Last Updated DateTime 4 166.37 cm 47.4 kg/m2 335207. 19 g 98 [degF] 120 /min 110 mm[Hg] 79 mm[Hg] Thania Hong [place] [facility] 4 12:13:12 Date Recorded Body height Body mass index (BMI) Body weight Heart rate Oxygen saturation Oxygen saturation in Arterial blood by Pulse oximetry Body temperature Systolic blood pressure Diastolic blood pressure Provider Name and Address Organization Details Last Updated DateTime 4 166.37 cm 48.3 kg/m2 043499. 75 g 112 /min 99 % 99 % 97.7 [degF] 128 mm[Hg] 85 mm[Hg] Morenita Lucía dickey MA [facility] 4 10:57:15 Date Recorded Body height Body mass index (BMI) Body weight Heart rate Oxygen saturation Oxygen saturation in Arterial blood by Pulse oximetry Body temperature Systolic blood pressure Diastolic blood pressure Provider Name and Address Organization Details Last Updated DateTime 4 166.37 cm 46.5 kg/m2 228743. 23 g 94 /min 97 % 97 % 97.1 [degF] 138 mm[Hg] 83 mm[Hg] Shawna Cash [facility] 4 11:22:39 Date Recorded Body height Body mass index (BMI) Body weight Body temperature Heart rate Oxygen saturation Oxygen saturation in Arterial blood by Pulse oximetry Systolic blood pressure Diastolic blood pressure Provider Name and Address Organization Details Last Updated DateTime 5 166.37 cm 45.9 kg/m2 457863. 86 g 97.7 [degF] 94 /min 98 % 98 % 138 mm[Hg] 85 mm[Hg] Carol Ann Hickey MA [facility] 5 14:06:34 Social History Question Answer Notes LastModified by Organizat ion Details LastModified Time Tobacco Smoking Status Never Smoker Irina Ross MD Attn: [facility],[address] [place], [address], [facility] 11/29/2014 11:14:40 What Is Your Level Of Alcohol Consumption? None [email or web address] Information not available 08/03/2014 What Was The Date Of Your Most Recent Tobacco Screening? 06/27/2024 [email or web address] Information not available 06/27/2024 Do You Use Any Illicit Or Recreational Drugs? No [email or web address] Information not available 02/28/2021 Do You Or Have You Ever Used Any Other Forms Of Tobacco Or Nicotine? No [email or web address] Information not available 01/28/2021 Sex: Unknown Functional Status None recorded. Mental Status None recorded. Family History Relationship Description Onset Age of this Age Resolved Age Notes LastModified by Organization Details LastModified Time Mother Diabetes mellitus [email or web address] Not available 2014 15:44:26 Medical History Condition Response Diabetes Y Other Y Gynecological HistoryNo gynecological history recorded. Obstetrics History GPAL:G 0 P 0 0 0 0 Immunizations Vaccine Type Date Status Note Provider Nam e and Address Organization Details Recorded Time Tdap 6 completed Not Available [facility] 06/10/2019 02:42:34 pneumococcal polysaccharide PPV23 6 completed Not Available [facility] 06/10/2019 02:29:54 COVID-19 vaccine, vector-nr, rS-Ad26, PF, 0.5 mL 1 completed Yesika Faye null, [place] [facility] 10/16/2020 09:49:08 COVID-19 vaccine, vector-nr, rS-Ad26, PF, 0.5 mL 1 completed Beata Romero [place], [place] [facility] 05/12/2021 15:41:37 Influenza, split virus, quadrivalent, preservative 6 completed Not Available [facility] 06/10/2019 02:50:26 COVID-19, mRNA, LNP-S, bivalent, PF, 50 mcg/0.5 mL or 25mcg/0.25 mL dose 3 completed Mela Kamara CMA [place], [place] [facility] 08/18/2022 14:22:52 Influenza, split virus, quadrivalent, preservative 8 completed Not Available [facility] 06/10/2019 02:42:02 Influenza, split virus, quadrivalent, PF 0 completed Marah Mccarthy [place], [place] [facility] 04/30/2020 17:55:04 Influenza, split virus, quadrivalent, PF 1 completed Shawna Cash [place] [facility] 02/28/2021 17:46:52 Influenza, split virus, trivalent, PF 4 completed Carol Ann Hickey [place] [facility] 02/01/2024 11:44:05 Influenza, split virus, trivalent, PF 4 completed Irina Ross MD Attn: Accounting[address] [place], [address], [place] [facility] 03/24/2024 12:39:59 Past Encounters Encounter ID Performer Location Encounter Start Date Encounter Closed Date Diagnosis/Indication Diagnosis SNOMED-CT Code Diagnosis ICD10 Code Diagnosis Note [id number] MD Arnie Douglas ([facility]) [address] [place] [address] 08/03/2014 11:32:39 08/09/2014 03:51:25 Type 2 diabetes mellitus [id number] Goal A1C <7.0. Unknown Control today as she is a new diabetic. Discussed lifestyle changes including increasing exercise and healthy diet. Last A1C Performed: Obtain today for relative baseline, then check another at 3 month carlos from start of metformin. Lipid Panel:Obta in today. Urine Microprote in:Obtain today. Last Dilated Eye Exam: Referral placed. Last Monofilame nt Foot Exam: Perform next visit. Pneumovax: Discuss next visit Return to Clinic in 1 month. [id number] Georgiana murray FP ([facility]) [address] [place] [address] 11/29/2014 10:17:11 11/29/2014 11:34:16 Diabetes mellitus 98014618 -Increase metformin -Start checking FBG -Lab reviewed, TLC recommende d -No ACEI or statin due to possibilit y of future -Weight loss recommende d Gynecologi c examination [id number] MD Georgiana Douglas FP ([facility]) [address] [place] [address] 10/14/2015 15:39:07 10/15/2015 09:30:11 Type 2 diabetes mellitus 92139619 E11.9 -A1c high and reviewed -Add glipizide -Annual lab ordered for 3 months from now -Foot exam done -Recommend ed annual eye exam -Pneumovax and TdaP today -Pap UTD Knee pain 26875106 M25.5 61 -NSAIDS and PT -Weight loss recommende d Active or passive immunization 101133726 Z23 [id number] MD Georgiana Douglas FP ([facility]) [address] [place] [address] 02/21/2016 11:21:06 02/24/2016 10:11:08 Increased frequency of urination 645076733 R35.0 -Due to hyperglyce sergio-Patien t notified Diabetes mellitus 447496 09 E11.9 -Glipizide increased to 5mg bid-Contin ue metformin- A1c ordered for April-F /U 3 months Active or passive immunization 620040211 Z23 [id number] MD Georgiana Douglas FP ([facility]) [address] [place] [address] 07/02/2017 13:47:07 07/06/2017 14:09:54 Diabetes mellitus 15673214 E11.9 -Labs due and ordered-PC V 23 UTD-No ACEI due to age/female -Flu shot UTD-Given number for [facility] office for eye exam -Weight loss and nutrition reviewed Active or passive immunization 251657228 Z23 Migraine 24451352 G43.90 9 [id number] MD Georgiana Douglas FP ([facility]) [address] [place] [address] 09/15/2018 13:50:17 09/20/2018 14:15:31 Diabetes mellitus 09446017 E11.9 -Uncontrol led, A1c 10.3% today-Star t insulin 20 units daily (instructi ons printed)-C ontinue glipizide and metformin with plan to wean off glipizide- Labs due and ordered-Ne eds ACEI, but still in child bearing age-Needs statin, but not current contracept ion-Health y weight, exercise, and nutrition reviewed-F /U 1 month with log Chronic low back pain 27 5100906 M54.5 -Muscle relaxer prn Essential hypertension 33173063 I10 -Controlle d-Continue HCTZ Headache 81484359 R51 Insomnia 552850102 G47.0 0 -Use and common side effects reviewed-M ay also help with headaches Pharyngitis 794082645 J0 2.9 -Mild sore thraot with strep exposure-T est negative, exam unremarkab le [id number] MD Georgiana Douglas FP ([facility]) [address] [place] [address] 10/10/2018 14:49:40 10/10/2018 15:46:27 Diabetes mellitus 81565536 E11.9 -Uncontrol led-Increa se Lantus to 25 units-Cont inue glipizide and metformin with plan to wean off glipizide- Needs ACEI, but still in child bearing age-Needs statin, but no current contracept ion-Health y weight, exercise, and nutrition reviewed-F /U 1 month with log Dysfunctio n of eustachian tube 13017868 H69.92 -Can also try OTC Sudafed prn [id number] MD Georgiana Douglas FP ([facility]) [address] [place] [address] 01/27/2019 11:53:20 01/27/2019 13:36:18 Diabetes mellitus 51763853 E11.9 -Uncontrol led , improved-I ncrease Lantus to 45 units -Continue glipizide and metformin with plan to wean off glipizide -urine microalbum in negative-N eeds statin, but no current contracept ion -Healthy weight, exercise, and nutrition reviewed -Eye exam at [facility] -F/U 3 months [id number] MD Georgiana Douglas FP ([facility]) [address] [place] [address] 07/07/2019 14:30:48 07/11/2019 11:32:13 Diabetes mellitus 30440801 E11.9 Last A1C:{{less than 7.0% 7-8% 8-9% great er than 9%*}} Goal A1C less than:{{7.0 %* 8.0%}} Current Therapy:{{ metformin* sulfonylu jareth TZD SG LT-2 DDP-4 GLP-1 RA long-ac ting insulin ra pid/short- acting insulin}} {{metformi n sulfonyl urea* TZD SGLT-2 DDP -4 GLP-1 RA long-ac ting insulin ra pid/short- acting insulin}} {{metformi n sulfonyl urea TZD S GLT-2 DDP- 4 GLP-1 RA long-ac ting insulin* r apid/short -acting insulin}} Statin:{{y es no decl ined due to adverse reaction/a llergy dec lined*}} RENÉ/ARB:{{ contraindi cated, child bearing age# yes n o no due to negative nephropath y screening contraindi cated decl ined due to adverse reaction/a llergy dec lined}} Foot Exam:{{com pleted in the past 12 months-neg ative* com pleted in the past 12 months-pos itive comp leted in the past 12 months- result unknown du e}} Nephropath y Screening: {{complete d in the past 12 months- negative* completed in the past 12 months- positive d ue}} Pneumovax 23:{{UTD* Declined N ot given}} Eye Exam:{{com pleted in the last 12 months- negative c ompleted in the last 12 months- positive c ompleted per patient report due - recommende d annual dilated eye exam*}} Patient Education: healthy diet: {{yes# yes no}} exercise: {{yes# yes no}} weight loss: {{yes# yes no}} foot care: {{yes# yes no}} complicati ons of uncontroll ed diabetes: {{yes# yes no}} medication compliance : {{yes# yes no}} -Increase Lantus to 50 units daily Next Visit: {{1 2 3* 4 5 6 7 8 9 10 11 12} } {{week(s) month(s)*} } Positive s creening for depression on PHQ-9 (Patient Health Questionnaire 9) 1394308646 24456 Z13.89 -discussed life stress-dec lined SSRI and CBT at this time-hernan dunham discussed Morbid obesity 299394848 E66.01 [id number] Irina Ross MD [facility] ([facility]) [address] [place] [address] 04/30/2020 16:56:03 05/01/2020 15:53:54 Diabetes mellitus 76719890 E11.9 Last A1C:{{less than 7.0% 7-8% 8-9% great er than 9%*}} Goal A1C less than:{{7.0 %* 8.0%}} Current Therapy:{{ metformin sulfonylur ea TZD SGL T-2 DDP-4 GLP-1 RA long-ac ting insulin* r apid/short -acting insulin}} {{metformi n sulfonyl urea* TZD SGLT-2 DDP -4 GLP-1 RA long-ac ting insulin ra pid/short- acting insulin}} {{metformi n* sulfony lurea TZD SGLT-2 DDP -4 GLP-1 RA long-ac ting insulin ra pid/short- acting insulin}}S tatin:{{ye s no* decl ined due to adverse reaction/a llergy dec lined}} RENÉ/ARB:{{ yes no no due to negative nephropath y screening contraindi cated* dec lined due to adverse reaction/a llergy dec lined}} Foot Exam:{{com pleted in the past 12 months-neg ative* com pleted in the past 12 months-pos itive comp leted in the past 12 months- result unknown du e}} Nephropath y Screening: {{complete d in the past 12 months- negative c ompleted in the past 12 months- positive d ue*}} Pneumovax 23:{{UTD* Declined N ot given}} Eye Exam:{{com pleted in the last 12 months- negative c ompleted in the last 12 months- positive c ompleted per patient report due - recommende d annual dilated eye exam*}} Patient Education: healthy diet: {{yes# yes no}} exercise: {{yes# yes no}} weight loss: {{yes# yes no}} foot care: {{yes# yes no}} complicati ons of uncontroll ed diabetes: {{yes# yes no}} medication compliance : {{yes# yes no}} Change Lantus to 30 units bid Next Visit: {{1 2 3* 4 5 6 7 8 9 10 11 12} } {{week(s) month(s)*} } Gynecologi c examination 93406681 Z01.419 -pap collected Active or passive immunization 545128459 Z23 Depressive disorder 3548 9007 F32.9 -Stopped citalopram -Start sertraline -Consider CBT Nausea and vomiting 1693 2000 R11.2 Essential hypertension 80451749 I10 -Chronic, uncontroll ed-Usually at goal-Reche ck next visit in 6 weeks [id number] MD Georgiana Douglas FP ([facility]) [address] [facility] [place] [address] 05/31/2020 16:08:52 06/18/2020 09:39:07 Diabetes mellitus 83716260 E11.9 Last A1C: greater than 9% Goal A1C less than: 7.0% Current Therapy: long-actin g insulin, sulfonylur ea, metformin Statin: no RENÉ/ARB: contraindi cated Foot Exam: completed in the past 12 months-neg ative Nephropath y Screening: neg Pneumovax 23: UTD Eye Exam: due- recommende d annual dilated eye exam Patient Education: healthy diet: yes exercise: yes weight loss: yes foot care: yes complicati ons of uncontroll ed diabetes: yes medication compliance : yes Change Lantus 30 units bid f/u 2 months Paresthesi a of upper limb 38224725 R20.2 -Acute, not improving- Possible impingemen t versus local nerve injury-pre dnisone burst Morbid obesity 968980320 E66.01 [id number] MD Arnie Douglas ([facility]) [address] [place] [address] 01/28/2021 09:39:37 01/29/2021 08:28:44 Diabetes mellitus 05628864 E11.9 Last A1C: greater than 9% Goal A1C less than: 7.0% Current Therapy: long-actin g insulin, sulfonylur ea, metformin Statin: no RENÉ/ARB: contraindi cated Foot Exam: completed in the past 12 months-pos itive Nephropath y Screening: neg Pneumovax 23: UTD Eye Exam: due- recommende d annual dilated eye exam Patient Education: healthy diet: yes exercise: yes weight loss: yes foot care: yes complicati ons of uncontroll ed diabetes: yes medication compliance : yes Compliance with Lantus 30 units bid reviewed -f/u 1 month Depressive disorder 3548 9007 F32.9 -Chronic, uncontroll ed-Schedul e with Renee for CBT on exit-Stop citalopram -Increase sertraline to 100mg daily-f/u 1 month Pain in left arm 8748019 00 M79.602 -Chronic, uncontroll ed-Recomme nded PT [id number] MD Arnie Douglas ([facility]) [address] [place] [address] 02/28/2021 10:15:43 02/28/2021 18:32:36 Diabetes mellitus 87338751 E11.9 Hypertensive disorder 38 096084 I10 -Chronic, improved on recheck-Co ntinue to monitor Administra tion of influenza vaccine 82864951 Z23 Tenosynovi tis of thumb 672431545 M65.849 -Thumb stuck in extension [id number] [facility] ([facility] [address]) [address] [place] [address] 06/03/2021 14:52:29 06/04/2021 09:51:55 Diabetes mellitus 40706892 E11.9 Last A1C:{{less than 7.0%* 7-8% 8-9% grea ter than 9%}}Goal A1C less than:{{7.0 %* 8.0%}}C urrent Therapy:{{ metformin* sulfonylu jareth TZD SG LT-2 DDP-4 GLP-1 RA long-ac ting insulin ra pid/short- acting insulin}} {{metformi n sulfonyl urea* TZD SGLT-2 DDP -4 GLP-1 RA long-ac ting insulin ra pid/short- acting insulin}} {{metformi n sulfonyl urea TZD S GLT-2 DDP- 4 GLP-1 RA long-ac ting insulin* r apid/short -acting insulin}} {{metformi n sulfonyl urea TZD S GLT-2 DDP- 4 GLP-1 RA* long-a cting insulin ra pid/short- acting insulin}}S tatin:{{ye s no decli monse due to adverse reaction/a llergy dec lined*}}AC E/ARB:{{ye s no* no due to negative nephropath y screening contraindi cated decl ined due to adverse reaction/a llergy dec lined}}Wally t Exam:{{com pleted in the past 12 months-neg ative comp leted in the past 12 months-pos itive* com pleted in the past 12 months- result unknown du e}}Nephrop athy Screening: {{complete d in the past 12 months- negative c ompleted in the past 12 months- positive d ue*}}Pneum ovax 23:{{UTD* Declined N ot given}}Eye Exam:{{com pleted in the last 12 months- negative c ompleted in the last 12 months- positive c ompleted per patient report due - recommende d annual dilated eye exam*}}Muc h improved A1c on GLP-1 and consistent w/ insulinPla n to wean off sulfonylur ea if DM controlled next check, call if any hypoglycem ia Next Visit: {{1 2 3* 4 5 6 7 8 9 10 11 12} } {{week(s) month(s)*} } Depressive disorder 1578 9007 F32.9 -Chronic, better-Con tinue sertraline to 100mg daily-f/u 3 months Morbid obesity 774463299 E66.01 [id number] MD Georgiana Douglas FP ([facility]) [address] [facility] [place] [address] 08/25/2021 14:50:11 09/01/2021 15:02:28 Diabetes mellitus 77064798 E11.9 Last A1C:{{less than 7.0% 7-8%* 8-9% grea ter than 9%}}Goal A1C less than:{{7.0 %* 8.0%}}C urrent Therapy:{{ metformin* sulfonylu jareth TZD SG LT-2 DDP-4 GLP-1 RA long-ac ting insulin ra pid/short- acting insulin}} {{metformi n sulfonyl urea* TZD SGLT-2 DDP -4 GLP-1 RA long-ac ting insulin ra pid/short- acting insulin}} {{metformi n sulfonyl urea TZD S GLT-2 DDP- 4 GLP-1 RA long-ac ting insulin* r apid/short -acting insulin}} {{metformi n sulfonyl urea TZD S GLT-2 DDP- 4 GLP-1 RA* long-a cting insulin ra pid/short- acting insulin}}S tatin:{{ye s no decli monse due to adverse reaction/a llergy dec lined*}}AC E/ARB:{{ye s no* no due to negative nephropath y screening contraindi cated decl ined due to adverse reaction/a llergy dec lined}}Wally t Exam:{{com pleted in the past 12 months-neg ative comp leted in the past 12 months-pos itive* com pleted in the past 12 months- result unknown du e}}Nephrop athy Screening: {{complete d in the past 12 months- negative* completed in the past 12 months- positive d ue}}Pneumo vax 23:{{UTD* Declined N ot given}}Eye Exam:{{com pleted in the last 12 months- negative c ompleted in the last 12 months- positive c ompleted per patient report due - recommende d annual dilated eye exam*}}Muc h improved A1c on GLP-1 and consistent w/ insulinPla n to wean off sulfonylur ea if DM controlled next check, call if any hypoglycem iaIncrease to 40 units insulin qAM Next Visit: {{1 2 3* 4 5 6 7 8 9 10 11 12} } {{week(s) month(s)*} } Pain of le ft shoulder joint [id number] 1344194 M25.512 -Acute, worse over the past 2-3 months-Martha pect rotator cuff tear s/p fall-Has insurance now, Ortho referral-[facility] with [facility]o Morbid obesity 797103833 E66.01 [id number] MD Georgiana Douglas FP ([facility]) [address] [facility] [place] [address] 06/01/2022 15:49:06 06/03/2022 11:12:56 Diabetes mellitus 17681268 E11.9 Last A1C:{{less than 7.0% 7-8% 8-9% great er than 9% 8.8%#}} Goal A1C less than:{{7.0 %* 8.0%}}C urrent Therapy:{{ metformin sulfonylur ea TZD SGL T-2 DDP-4 GLP-1 RA* long-a cting insulin ra pid/short- acting insulin}} {{metformi n sulfonyl urea TZD S GLT-2 DDP- 4 GLP-1 RA long-ac ting insulin* r apid/short -acting insulin}} {{metformi n sulfonyl urea* TZD SGLT-2 DDP -4 GLP-1 RA long-ac ting insulin ra pid/short- acting insulin}} {{metformi n* sulfony lurea TZD SGLT-2 DDP -4 GLP-1 RA long-ac ting insulin ra pid/short- acting insulin}}S tatin:{{ye s no* decl ined due to adverse reaction/a llergy dec lined}}RENÉ /ARB:{{yes no* no due to negative nephropath y screening contraindi cated decl ined due to adverse reaction/a llergy dec lined}}Wally t Exam:{{com pleted in the past 12 months-neg ative comp leted in the past 12 months-pos itive* com pleted in the past 12 months- result unknown du e}}Nephrop athy Screening: {{complete d in the past 12 months- negative c ompleted in the past 12 months- positive d ue*}}Pneum ovax 23:{{UTD* Declined N ot given}}Eye Exam:{{com pleted in the last 12 months- negative c ompleted in the last 12 months- positive c ompleted per patient report due - recommende d annual dilated eye exam*}} -Complrobinson murray discussed, she has been doing well this past week and hopes to take meds as prescribed this year as a resolution Next Visit: {{1 2 3* 4 5 6 7 8 9 10 11 12} } {{week(s) month(s)*} } Headache 50244665 R51.9 -Chronic, stable-Com pazine prn Depressive disorder 3548 9007 F32.9 -Chronic, stable-PHQ reviewed-C ontinue sertraline to 100mg daily-f/u 3 months Morbid obesity 685907176 E66.01 [id number] MD Georgiana Douglas FP ([facility]) [address] [place] [address] 09/01/2022 09:43:02 09/02/2022 12:20:49 Diabetes mellitus 76764783 E11.9 Last A1C:{{less than 7.0% 7-8% 8-9% great er than 9% 5.8%#}} Goal A1C less than:{{7.0 %* 8.0%}}C urrent Therapy:{{ metformin sulfonylur ea TZD SGL T-2 DDP-4 GLP-1 RA* long-a cting insulin ra pid/short- acting insulin}} {{metformi n sulfonyl urea TZD S GLT-2 DDP- 4 GLP-1 RA long-ac ting insulin* r apid/short -acting insulin}} {{metformi n sulfonyl urea* TZD SGLT-2 DDP -4 GLP-1 RA long-ac ting insulin ra pid/short- acting insulin}} {{metformi n* sulfony lurea TZD SGLT-2 DDP -4 GLP-1 RA long-ac ting insulin ra pid/short- acting insulin}}S tatin:{{ye s* no decl ined due to adverse reaction/a llergy dec lined}}RENÉ /ARB:{{yes no* no due to negative nephropath y screening contraindi cated decl ined due to adverse reaction/a llergy dec lined}}Wally t Exam:{{com pleted in the past 12 months-neg ative comp leted in the past 12 months-pos itive* com pleted in the past 12 months- result unknown du e}}Nephrop athy Screening: {{complete d in the past 12 months- negative* completed in the past 12 months- positive d ue}}Pneumo vax 23:{{UTD* Declined N ot given}}Eye Exam:{{com pleted in the last 12 months- negative c ompleted in the last 12 months- positive c ompleted per patient report* du e- recommende d annual dilated eye exam}} -Increase Victoza to 1.8 daily-Decr ease glipizide to 10mg qAM due to risk of hypoglycem ia Next Visit: {{1 2 3* 4 5 6 7 8 9 10 11 12} } {{week(s) month(s)*} } Morbid obesity 105989926 E66.01 Snoring 25034784 R06.83 -Daytime fatigue, night snoring, waking with headaches- Sleep eval for ALISON [id number] MD Georgiana Douglas FP ([facility]) [address] [facility] [place] [address] 06/15/2023 14:10:45 06/16/2023 14:34:03 Diabetes mellitus 50280206 E11.9 Last A1C: 6.6%Goal A1C less than: 7.0%Curren t Therapy: GLP-1, long-actin g insulin, sulfonylur ea, metforminS tatin: yesACE/ARB : noFoot Exam: completed in the past 12 months-neg ativeNephr opathy Screening: completed in the past 12 months- dueEye Exam: completed per patient reportf/u 6 months Chronic low back pain 27 3762198 M54.50 -Chronic, stable Morbid obesity 580166164 E66.01 -Losing weight on GLP-1 [id number] MD Georgiana Douglas FP ([facility]) [address] [place] [address] 12/14/2023 11:51:25 12/15/2023 12:45:40 Diabetes mellitus 90005113 E11.9 Last A1C: 6.8%Goal A1C less than: 7.0%Curren t Therapy: GLP-1, long-actin g insulin, sulfonylur ea, metforminS tatin: yesACE/ARB : noFoot Exam: completed in the past 12 months-neg ativeNephr opathy Screening: completed in the past 12 monthsEye Exam: completed per patient report7 pound weight loss with GLP-1 Cervical radiculopathy 20862474 M54.12 -Subacute, uncontroll ed C6 radiculopa thy-PT-If no improvemen t with PT, consider cervical spine MRI Depressive disorder 3548 9007 F32.9 -Chronic, uncontroll ed-Change to Prazac-wea n doen to 50mg of sertraline X 1 week and then start 10mg Prozac X 1 week and then 2 caps daily-f/u 6 weeks (scheduled Morbid obesity 208431204 E66.01 -Losing weight on GLP-1 [id number] CHERELLE Lowe FP ([facility]) [address] [place] [address] 02/01/2024 10:43:51 02/02/2024 14:29:08 Diabetes mellitus 99801149 E11.9 Last A1C: 6.8%Goal A1C less than: 7.0%Curren t Therapy: GLP-1, long-actin g insulin, sulfonylur ea, metforminS tatin: yesACE/ARB : noFoot Exam: completed in the past 12 months-neg ativeNephr opathy Screening: completed in the past 12 monthsEye Exam: completed per patient reportLab due and orderedf/u 3 months Administra tion of influenza vaccine 90392601 Z23 Depressive disorder 3548 9007 F32.9 -Chronic, controlled -Continue fluoxetine 20mg daily Morbid obesity 039888064 E66.01 -Losing weight on GLP-1 [id number] MD Georgiana Douglas FP ([facility]) [address] [place] [address] 03/24/2024 11:04:54 03/27/2024 09:21:55 Immunization due 124304695 Z28.39 Cervical radiculopathy 24126554 M54.12 -Acute, uncontroll ed C6 radiculopa thy severe-Sta rted PT and has had several sessions, but it is so painful that she cannot fully participat e-C-spine MRI to evaluate for spinal injections +/- surgery-Me drol dose-jong helped, do steroid taper-Cont inue Elavil qhs-Decrea se cyclobenza richard dose to 5mg to reduce sedation-f /u after MRI Diabetes mellitus 666217 09 E11.9 Last A1C: 10.6%, previously controlled Goal A1C less than: 7.0%Curren t Therapy: GLP-1, long-actin g insulin, sulfonylur ea, metforminS tatin: yesACE/ARB : noFoot Exam: completed in the past 12 months-neg ativeNephr opathy Screening: completed in the past 12 monthsEye Exam: completed per patient reportRest art insulinf/u 3 months [id number] MD Georgiana Douglas FP ([facility]) [address] [place] [address] 06/27/2024 13:44:56 06/28/2024 14:42:10 Diabetes mellitus 72791798 E11.9 Last A1C: 9.9%Goal A1C less than: 7.0%Curren t Therapy: GLP-1, long-actin g insulin, sulfonylur ea, metforminS tatin: yesACE/ARB : noFoot Exam: completed in the past 12 months-pos itiveNephr opathy Screening: completed in the past 12 months, negativeEy e Exam: completed per patient reportIncr ease insulin to 45f/u 3 months Cervical radiculopathy 45549159 M54.12 -Acute, stable C6/7 radiculopa thy-Starte d PT and had several sessions, but it is so painful that she cannot fully participat e-C-spine MRI declined by insurance- Neurology referral Migraine 20215122 G43.90 9 -Chronic, uncontroll ed-Stop Elavil, no longer helping-St art topiramate -Risks, benefits, alternativ es, and common side effects reviewed-f /u 3 months Morbid obesity 230792650 E66.01 -Losing weight on GLP-1-Star ting topiramate Health Concerns Section Related Observation LastModified by Organization Detai ls LastModified Time None Recorded Concern Status LastModified by Organization Details LastModified Time None Recorded Advance Directives Directive None Recorded Payers Encounter Date Sequence Insurance Name Policy Number Policy Nov[place] Covered Member ID Nov[place] Member ID Guarantor Name 06/15/2023 1 [facility] (MEDICAID HMO) [id number] S[employer] Guerreroris [id number] S[employer] Nisha 12/14/2023 1 [facility] (MEDICAID HMO) [id number] [place] Nisha [id number] [employer] Nisha 02/01/2024 1 [facility] (MEDICAID HMO) [id number] [employer] Nisha [id number] Sapphire Cameron 03/24/2024 1 [facility] (MEDICAID HMO) [id number] [employer] Guerreroris [id number] S[employer]hire Nisha 06/27/2024 1 [facility] (MEDICAID HMO) [id number] [place] Nisha [id number] Sapphire Nisha Notes Date Note Type Note Provider Name and Address Organization Details Recorded Time 06/15/2023 text/html Sapphire is here t o f/u her diabetes. She has been consistent with taking medications. She has bilateral foot neuropathy. Her mood is improved on sertraline and she feels the current dose is working. She has chronic, stable low back pain. She has lost 9 pounds since her last visit. Irina Ross MD Attn: Accounting,[address] [facility], [place], [address], [facility] 06/15/2023 20:35:04 12/14/2023 text/html Sapphire is here t o f/u her diabetes. She has been consistent with taking medications. She has bilateral foot neuropathy. Her mood is worse- she feels down, poor appetite, unmotivated, and fatigued. She has lost 7 pounds since her last visit. She has intense L trapezius and upper back pain with radiation down her arm to thumb and first finger. The pain is sharp and worse with lifting and certain movement. She had a h/o of L shoulder pain, but this is different. Present for 4-6 weeks, daily, moderate. Irina Ross MD Attn: Accounting[address] [place], [address], [facility] 12/14/2023 13:58:21 02/01/2024 text/html Sapphire is here t o f/u her mood since a switch to Prozac. She is doing well on her current dose and feels better- less down, interested in activities more, sleep and appetite better. Carol Ann Hickey MA [facility], [facility] 02/01/2024 11:44:15 03/24/2024 text/html Sapphire is here t o f/u her diabetes and for acute neck pain with radiation to her left upper arm. She has intense L trapezius and upper back pain with radiation down her arm to thumb and first finger, with the worst arm pain being in her upper arm. The pain is sharp and worse with lifting and certain movement. She had a h/o of L shoulder pain, but this is different. Present for 4-6 weeks, daily, moderate to severe. It is affecting her sleep and she keeps waking due to pain. She cannot lift her arm above her head due to intense pain. For her diabetes, she has not been consistent with taking medications. She has bilateral foot neuropathy. Home blood sugars running high, not taking insulin most days. Irina Ross MD Attn: Accounting[address] [facility], [place], [address], [facility] 03/24/2024 12:52:03 06/27/2024 text/html Sapphire is here t o f/u her diabetes and for numbness radiating into both arms. Initially it was just her L arm, but now it is both. L arm radiates to elbow and R arm to middle fingers. She has a h/o neck pain, but it is currently better. She had a fall in April and suffered a concussion and neck and shoulder pain after the fall. For her diabetes, she has not been more consistent with taking medications. She has bilateral foot neuropathy. She is having some trouble getting readings on her glucometer. She is having increased migraine-type headaches since April at least half the days. Triptan and Elavil not helping. She has associated nausea and photophobia associated with throbbing headaches. Her mood is better overall. Irina Ross MD Attn: Accounting[address] [place], [address], [facility] 06/28/2024 10:06:01 OBGyn Episode No OBEpisode recorded.
--- OUTSIDE RECORDS SUMMARY | 2024-07-08 10:36 | XMS_ITS | Continuity of Care Document ---
Author Organization [facility] Address [address] [place] [address] Phone Care Team Providers Care Sld Educational Aide Name Role Phone Jess PT, DPT, Gali Unavailable Unavailable Procedures Procedure Date Therapeutic Activities PT Evaluation Low Complexity Therapeutic Exercise Neuromuscular Re-Ed Electrical Stimulation Advance Directives Directive Yes / No Effective Date File Name No Information Encounters Encounter Description Practice Location Reason(s) For Visit Diagnoses Date Provider Providers Copied on Encounter [facility], [address], [place], [place], [id number], tel:[phone] [place] No Information 1 Jess Talbert. . [facility], [address], [place], [place], [id number], tel:[phone] [place] No Information 1 Jess Gali. . Family History Family Member Type Diagnosis Age At Onset No Information Payers Payer name Insurance type Covered constitution party ID Authoriza tion(s) Self Pay - GFE Social History Type Description Quantity Date Captured Comments Sex Female Smoking Status No Information Chief Complaint And Reason For Visit No Information Reason For Referral Reason For Referral No Information Plan Of Treatment Date Type Action Status Referral Ordered: PCP timeframe: 1 week. (related to Overweight) ordered Referral Ordered: Weight management: Referral to physician timeframe: 1 Month. (related to Overweight) ordered History Of Present Illness Encounter Date Complaint History Of Prese nt Illness No Information Functional Status Date Functional Assessmen t No Information Instructions Date Instruction Additional Infor mation No Information Assessments Type Assessment Date No Information Patient Care Teams Name Effective Dates (start - stop) Status Members No Information
--- OUTSIDE RECORDS SUMMARY | 2024-07-08 10:55 | XMS_ITS | Continuity of Care Document ---
Author Organization [facility] Address [address] [place] [address] Phone Care Team Providers Care Post Anesthesia Nurse Name Role Phone Jess PT, DYLONT, Gali Unavailable Unavailable Procedures Procedure Date PT Evaluation Low Complexity Therapeutic Activities Therapeutic Exercise Electrical Stimulation Neuromuscular Re-Ed Advance Directives Directive Yes / No Effective Date File Name No Information Encounters Encounter Description Practice Location Reason(s) For Visit Diagnoses Date Provider Providers Copied on Encounter [facility], [address], [place], [place], [id number], tel:[phone] [place] No Information 1 Jess Gali. . [facility], [address], [place], [place], [id number], tel:[phone] [place] No Information 1 Jess Gali. . Family History Family Member Type Diagnosis Age At Onset No Information Payers Payer name Insurance type Covered green party ID Authoriza tion(s) Self Pay - [...]
--- NOTE | 2024-07-08 11:04 | ED.GENADULT ---
HPI - General Adult General Chief complaint: Upper Respiratory Infection Stated complaint: exposed to flu A, wants tested Time Seen by Provider: 07/08/24 10:44 History of Present Illness HPI narrative: [age] old female present to the emergency department for evaluation for cough and runny nose symptoms. Patient states she was exposed to flu a and does want to be safe and get checked out. Related Data Home Medications ?Medication ?Instructions ?Recorded ?Confirmed ?Last Taken ?Type amitriptyline 50 mg tablet 08/01/21 Unknown History cyclobenzaprine 10 mg tablet mg 08/01/21 Unknown History glipizide 10 mg tablet mg 08/01/21 Unknown History hydrochlorothiazide 25 mg tablet 08/01/21 08/01/21 Unknown History ibuprofen 800 mg tablet 08/01/21 Unknown History meloxicam 7.5 mg tablet 08/01/21 Unknown History metformin 1,000 mg tablet mg 08/01/21 Unknown History sertraline 100 mg tablet mg 08/01/21 Unknown History atorvastatin 10 mg tablet 10 mg PO DAILY 05/10/23 Unknown History insulin detemir U-100 100 unit/mL 40 unit subcut QHS 05/10/23 Unknown History (3 mL) subcutaneous pen (Levemir FlexPen) liraglutide 0.6 mg/0.1 mL (18 mg/3 1.8 mg subcut DAILY 05/10/23 Unknown History mL) subcutaneous pen injector (Victoza 2-Jong) Allergies Allergy/AdvReac Type Severity Reaction Status Date / Time No Known Allergies Allergy Unknown Verified 07/08/24 10:35 Review of Systems Review of Systems: All systems reviewed & are unremarkable except as noted in HPI and below PMFSH Past Medical History Medical History Anxiety Arthritis Depression Diabetes Ectopic Surgical History Surgical History History of tubal ligation Family History Family History Mother Atrial fibrillation Father Acute myocardial infarction Social History Social History Smoking status: Never smoker Exam Narrative: APPEARANCE: Well appearing, no pain, no distress, well-nourished. HEAD: normocephalic, atraumatic. EYES: PERRLA/EOMI, conjunctivae clear. NOSE: Normal no drainage EARS:TMS clear with good light reflex. THROAT: Pharynx clear, no exudate. NECK: Supple. No adenopathy, no masses. RESPIRATORY: Airway patent, respirations nonlabored. Clear to auscultation bilaterally, no rales, rhonchi, wheezing. CARDIOVASCULAR: Regular rate and rhythm without murmurs rubs or gallops. ABDOMINAL: Soft, nontender, nondistended, normal bowel sounds MUSCULOSKELETAL: Moves all extremities. Strength/ROM intact, No edema, No calf tenderness. NEURO: Alert. Cranial nerves II through XII intact. Good gait. Good coordination SKIN: Warm, dry. Normal Color Course Vital Signs Vital signs: Vital Signs Temperature 97.6 F 07/08/24 10:33 Pulse Rate 116 H 07/08/24 10:33 Respiratory Rate 16 07/08/24 10:33 Blood Pressure 146/82 H 07/08/24 10:33 Pulse Oximetry 100 07/08/24 10:33 Oxygen Delivery Room Air 07/08/24 10:33 Temperature 97.6 F 07/08/24 10:33 Pulse Rate 116 H 07/08/24 10:33 Respiratory Rate 16 07/08/24 10:33 Blood Pressure 146/82 H 07/08/24 10:33 Pulse Oximetry 100 07/08/24 10:33 Oxygen Delivery Room Air 07/08/24 10:33 Medical Decision Making [facility] Narrative Medical decision making narrative: [age] old female presents emergency department for evaluation of cough and runny nose, patient does have exposure to flu a. Patient's flu COVID RSV swabs were negative.. Patient's partner did test positive for flu A. Differential Diagnosis Differential Diagnosis: COVID, RSV, influenza, pneumonia Vital Signs Vital Signs: Vital Signs Temperature 97.6 F 07/08/24 10:33 Pulse Rate 116 H 07/08/24 10:33 Respiratory Rate 16 07/08/24 10:33 Blood Pressure 146/82 H 07/08/24 10:33 Pulse Oximetry 100 07/08/24 10:33 Oxygen Delivery Room Air 07/08/24 10:33 Temperature 97.6 F 07/08/24 10:33 Pulse Rate 116 H 07/08/24 10:33 Respiratory Rate 16 07/08/24 10:33 Blood Pressure 146/82 H 07/08/24 10:33 Pulse Oximetry 100 07/08/24 10:33 Oxygen Delivery Room Air 07/08/24 10:33 Lab Data Lab results reviewed: Yes I reviewed the patient's lab results. Labs: Lab Results 07/08/24 Range/Units 10:38 Influenza A (RT-PCR) Negative (Negative) Influenza B (RT-PCR) Negative (Negative) RSV (RT-PCR) Negative (Negative) SARS-CoV-2 RNA (RT-PCR) Negative (Negative) Discharge Plan Discharge Clinical Impression: Viral infection Patient Disposition: Home, Self-Care Condition: Stable Instructions: Antibiotic Form, Influenza (ED) Additional Instructions: Tylenol and ibuprofen for fever and for body aches. Have close follow-up with your primary care physician. Patient Language: Upper Sorbian Prescriptions: No Action atorvastatin 10 mg tablet 10 mg PO DAILY Victoza 2-Jong 0.6 mg/0.1 mL (18 mg/3 mL) pen injector 1.8 mg subcut DAILY Levemir FlexPen 100 unit/mL (3 mL) insulin pen 40 unit subcut QHS cefpodoxime 200 mg tablet 400 mg PO Q12H 7 Days Qty: 28 0RF Rx Instructions: must administer with a meal/food glipizide 10 mg tablet amitriptyline 50 mg tablet meloxicam 7.5 mg tablet metformin 1,000 mg tablet cyclobenzaprine 10 mg tablet ibuprofen 800 mg tablet sertraline 100 mg tablet hydrochlorothiazide 25 mg tablet prednisone 20 mg tablet 40 mg PO DAILY 5 Days Qty: 10 0RF naproxen 500 mg tablet 500 mg PO BID Qty: 10 0RF omeprazole 40 mg capsule,delayed release(DR/EC) 40 mg PO DAILY Qty: 30 0RF hydrocodone-acetaminophen 5-325 mg tablet 1 tablet PO Q12H PRN (Reason: pain) Qty: 14 0RF cyclobenzaprine 10 mg tablet 10 mg PO BID PRN (Reason: muscle spasm) Qty: 14 0RF methylprednisolone [Medrol (Jong)] 4 mg tablets,dose pack See Rx Instructions PO .COMPLEX Qty: 21 0RF Rx Instructions: orally per package directions cyclobenzaprine 10 mg tablet 10 mg PO TID PRN (Reason: muscle spasm) Qty: 14 0RF lidocaine 5 % adhesive patch,medicated 1 patch topical DAILY Qty: 15 0RF Rx Instructions: leave on most painful area for up to 12 hrs. do not use more than 1 patch in a 24-hour period. Follow-up/Referrals: Cody,Jennifer Kraus MD [Primary Care Provider] -
[2024-07-08 11:25] LABS: Influenza A QL RT-PCR Negative (Negative); Influenza B QL RT-PCR Negative (Negative); RSV RNA, RT-PCR Negative (Negative); SARS-CoV-2 RNA PCR Negative (Negative)
== END 2024-07-08 12:06 | disposition home or self-care (01) ==
PROVIDERS: Emergency Provider Emergency Medicine; PCP Family Medicine
DX: B34.9 Viral infection, unspecified (principal); Z20.822 Contact with and (suspected) exposure to COVID-19; E11.9 Type 2 diabetes mellitus without complications; M19.90 Unspecified osteoarthritis, unspecified site; F41.9 Anxiety disorder, unspecified; Z79.85 Long-term (current) use of injectable non-insulin antidiabetic drugs; Z79.899 Other long term (current) drug therapy; Z79.84 Long term (current) use of oral hypoglycemic drugs
CPT/HCPCS: 87637; 99283

== ENCOUNTER 2024-09-14 16:51 | Emergency (ER) | payer OTHER, SELFPAY ==
[2024-09-14] VITALS (9 sets, daily range): BP systolic 116–150; BP diastolic 71–93; PULSE 85–95; RESP 12–23; TEMP 36.6; O2SAT 98–100
--- NOTE | ~2024-09-14 | XR_ITS ---
HISTORY: NONTRAUMATIC PAIN COMPARISON: 02/23/2024 TECHNIQUE: 2 views of the left shoulder were performed FINDINGS: No acute fracture. Redemonstration of mild osteoarthritis of the glenohumeral joint with moderate osteoarthritis of the acromioclavicular joint. The visualized portion of the adjacent left lung is clear. The humeral head is well seated within the glenoid fossa. IMPRESSION: Polyarticular osteoarthritis. No acute fracture or anterior dislocation. Reviewed, dictated and finalized at location A.
--- NOTE | ~2024-09-14 | CT_ITS ---
History: Left upper extremity weakness PROCEDURE: CT cervical spine without intravenous contrast. COMPARISON: Reference is made to a plain film evaluation of the cervical spine dated 02/23/2024 TECHNIQUE: Multiple contiguous axial images of the cervical spine were performed without the administration of i ntravenous contrast. DLP: 464mGy-cm FINDINGS: Straightening of the normal curvature of the cervical spine is identified, likely muscular in origin. No acute fractures are present. The bilateral lung apices are unremarkable. No soft tissue abnormality is present. The airway is patent. Impression: Straightening of the normal curvature of the cervical spine, likely muscular in origin. No acute fracture. Reviewed, dictated and finalized at location A. Impression: Straightening of the normal curvature of the cervical spine, likely muscular in origin. No acute fracture.
--- OUTSIDE RECORDS SUMMARY | 2024-09-14 17:27 | XMS_ITS | Clinical Summary ---
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
--- OUTSIDE RECORDS SUMMARY | 2024-09-14 17:27 | XMS_ITS | Referral Summary ---
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
--- OUTSIDE RECORDS SUMMARY | 2024-09-14 17:27 | XMS_ITS | Clinical Summary ---
Author Organization [facility] Address [address] [place] [address] Care Team Providers Care Psychiatric Therapist Name Role Phone Jennifer Ross MD Primary Care Provider [phone] Allergies Active Allergy Reactions Criticality Noted Date [...] Encounters Date Type Department Care Team Description 08/15/2024 1:00 PM CDT - 08/15/2024 11:59 PM CDT Hospital Encounter [facility] Diagnostic [facility] [place] [address] Jennifer Ross MD Discharge Disposition: Home or Self Care (Routine Discharge) 08/15/2024 Travel from Last 3 Months Family History Medical [...] Information Value Date Recorded Sex Assigned at Female 08/15/2024 1:10 PM CDT Legal Sex Female 4:48 PM CDT Gender [...] Date Last Done Comments Cervical Cancer Screening Pa p Smear (Age 30 to 64) Every 3 Years 1980 Annual Physical 02/08/1983 Hepatitis C 02/08/1998 Hepatitis B Vaccines (1 of 3 - 19+ 3-dose series) 02/08/1999 Cervical Cancer Screening Pa p with HPV Testing (Age 30 to 64) Every 5 Years 02/08/2010 Cervical Cancer Screening wi HPV 02/08/2010 Mammogram Screening 2020 COVID-19 Vaccine (2023-2 5 season) 2024 08/04/2022, 05/12/2021, 09/19/2020 DTaP, Tdap and Td Vaccines ( 2 - Td or Tdap) 10/13/2025 10/14/2015 Pneumococcal Vaccine: Pediatrics (0 to 5 Years) and At-Risk Patients (6 to 49 Years) Aged Out 10/14/2015 No longer eligible b ased on patient's age to complete this topic HPV Vaccines Aged Out No longer eligi ble based on patient's age to complete this topic Meningococcal B Vaccine Aged Out No l onger eligible based on patient's age to complete this topic Meningococcal Vaccine Aged Out No wendy vianey eligible based on patient's age to complete this topic RSV Immunizations Under 20 Months Aged Out No longer eligible b ased on patient's age to complete this topic Procedures Procedure Name Priority Date/Time Associated Diagnosis Comments XR SHOULDER LT 3V Routine 08/15/2024 1:3 0 PM CDT Pain in left shoulder from Last 3 Months Results * XR SHOULDER LT 3V (08/15/2024 1:30 PM CDT) Anatomical Region Laterality Modality Shoulder Radiographic Mary ging 08/15/2024 1:59 PM CDT Impressions 08/15/2024 2:02 PM CDT IMPRESSION: Normal exam. Referred By: Interpreted By: Ck Byrd MD, 08/15/2024 1:59 PM Narrative 08/15/2024 2:02 PM CDT [address] [address] EXAM: XR SHOULDER LT 3V DATE: 08/15/2024 No comparison INDICATION: Multiple falls, shoulder pain. TECHNIQUE: 3 views FINDINGS: No fracture, malalignment, or arthritic change. Procedure Note Ck Byrd MD - 08/15/[address] [address] EXAM: XR SHOULDER LT 3V DATE: 08/15/2024 No comparison INDICATION: Multiple falls, shoulder pain. TECHNIQUE: 3 views FINDINGS: No fracture, malalignment, or arthritic change. IMPRESSION: Normal exam. Referred By: Interpreted By: Ck Byrd MD, 08/15/2024 1:59 PM us Jennifer Ross MD GENERAL IMAGING Final Result from Last 3 Months Insurance [place] Care Teams Psychiatric Therapist Relationship Specialty Start Date End Date Jennifer Ross MD [address] [facility] [address] [place] [address] PCP - General 10/14/15
--- OUTSIDE RECORDS SUMMARY | 2024-09-14 17:28 | XMS_ITS | Continuity of Care Document ---
Author Organization [facility] Address [address] [place] [address] Phone Care Team Providers Care Fisheries Specialist Name Role Phone Jess PT, DPT, Gali Unavailable Unavailable Procedures Procedure Date Therapeutic Activities PT Evaluation Low Complexity Neuromuscular Re-Ed Electrical Stimulation Therapeutic Exercise Advance Directives Directive Yes / No Effective Date File Name No Information Encounters Encounter Description Practice Location Reason(s) For Visit Diagnoses Date Provider Providers Copied on Encounter [facility], [address], [place], [place], [id number], tel:[phone] [place] No Information 1 Jess Talbert. . [facility], [address], [place], [place], [id number], tel:[phone] [place] No Information 1 Jess Gali. . Family History Family Member Type Diagnosis Age At Onset No Information Payers Payer name Insurance type Covered democrat ID Authoriza tion(s) Self Pay - GFE [...]
--- OUTSIDE RECORDS SUMMARY | 2024-09-14 17:28 | XMS_ITS | Data Portability ---
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 Name Role Phone IRINA ROSS Primary Care [...] DO Not Attach Compendium, Do Not Delete/merge, [id number] 06/27/2024 20:16:01 HbA1c (hemog lobin A1c), blood 2023 024 [email or web address] In-Office Order, Internal Use Only DO Not Attach Compendium DO Not Attach Compendium, Do Not Delete/merge, [id number] 03/24/2024 12:39:59 albumi n/crea tinine , mass ratio, urine 2023 024 [facility], [address] [facility], [address], [place], [address], 03/25/2024 09:14:34 lipid panel, serum 2023 024 [facility], [address] [facility], [address], [place], [address], 03/25/2024 09:14:36 CMP, serum or plasma 2023 024 [facility], [address], [address], [place], [address], 03/25/2024 09:14:37 HbA1c (hemog lobin A1c), blood 2023 024 [email or web address] In-Office Order, Internal Use Only DO Not Attach Compendium DO Not Attach Compendium, Do Not Delete/merge, [id number] 12/14/2023 13:34:33 CMP, serum or plasma 2023 024 [facility], [address], [address], [place], [address], 06/15/2023 14:37:51 lipid panel, serum 2023 024 [facility], [address] [facility], [address], [place], [address], 06/15/2023 14:37:50 albumi n/crea tinine , mass ratio, urine 2023 024 [facility], [address], [address], [place], [address], 06/15/2023 14:37:51 HbA1c (hemog lobin A1c), blood 2023 024 [email or web address] In-Office Order, Internal Use Only DO Not Attach Compendium DO Not Attach Compendium, Do Not Delete/merge, [id number] 06/15/2023 20:32:59 Referral physic al therap ist referr al - 43yo F with cervic al radicu lopath y X 4-6 weeks. please evalua te and treat. 2023 024 [facility], [facility] [facility], [place], [address], 02/22/2024 13:11:38 Procedures None record ed. Surgeries None record ed. Imaging MRI, cervic al spine, w/o contra st [address] Scheduling, [facility], [place], [address], 05/04/2024 11:07:39 Medication Orders topira mate 50 mg tablet [address] [facility], [address] [place] [address], [address], 06/28/2024 09:54:57 Levemi r U-100 Insuli n 100 unit/m L subcut aneous soluti on [address], [address] [place] [address], [address], 06/28/2024 10:01:14 cyclob enzapr ine 5 mg tablet [address] [facility], [address] [place] [address], [address], 06/28/2024 10:00:39 predni sone 10 mg tablet 2023 025 [facility], [address] [place] [address], [address], 06/28/2024 10:01:11 fluoxe mehul 20 mg capsul e [address] [facility], [address] [place] [address], [address], 02/01/2024 11:14:28 fluoxe mehul 10 mg capsul e 2023 024 [facility], [address] [place] [address], [address], 02/01/2024 11:15:08 cyclob enzapr ine 10 mg tablet [address] [facility], [address] [place], [address], 03/24/2024 12:50:21 glipiz jacoby 10 mg tablet 2023 024 [facility], [address] [place], [address], 06/15/2023 14:47:14 Patient TargetsNo targets recorded. Patient Instructions Encounter Date Encounter Id Patient Instructions Last Modified By Organization Details Last Modified Time 06/15/2023 [id number] A healthy lifestyle: care instructions Not available 06/15/2023 20:33:28 12/14/2023 [id number] A healthy lifestyle: care instructions Not available 12/14/2023 13:56:32 02/01/2024 [id number] A healthy lifestyle: care instructions Not available 02/01/2024 11:33:06 06/27/2024 [id number] A healthy lifestyle: care instructions Not available 06/28/2024 10:03:55 Reason for Referral Physical Therapist Referral for Cervical radiculopathy 43yo F with cervical radiculopathy X 4-6 weeks. please evaluate and treat. Referring Physician: Irina Ross, Application Dba, Encounter Date: 12/14/2023 Results Created Date Observation Date Name Description Value Unit Range Abnormal Flag Note LastModifiedBy Organization Detail LastModifiedTime 06/15/1906/15/2023 HbA1c (hemo globi n A1c), blood HbA1c 6.6 Not Available In-Office Order Internal Use Only DO Not Attach Compendium DO Not Attach Compendium, Do Not Delete/merge, [id number] 06/15/2023 14:49:50 12/14/19 24 12/14/2023 HbA1c (hemo globi n A1c), blood HbA1c 6.8 Not Available In-Office Order Internal Use Only DO Not Attach Compendium DO Not Attach Compendium, Do Not Delete/merge, [id number] 12/14/2023 12:52:14 03/24/20 24 03/25/2024 ALBUM IN/CR EATIN INE RATIO ,URIN E creatinine, urine 44.3 mg/dL notest ab. Not Available [facility] ([facility]) [address] [facility] [place], [address], 03/25/2024 09:14:34 03/24/20 24 03/25/2024 ALBUM IN/CR EATIN INE RATIO ,URIN E albumin, urine 5.8 ug/mL notest ab. Not Available [facility] ([facility]) [address] [facility], [place], [address], 03/25/2024 09:14:34 03/24/20 24 03/25/2024 ALBUM IN/CR EATIN INE RATIO ,URIN E alb/creat ratio 13 mg/g_ creat 0-29 Janis l: 0 - 29 Moder ately incre ased: 30 - 300 Sever vivek incre ased: >300 Not Available [facility] ([facility]) [address] [facility], [place], [address], 03/25/2024 09:14:34 03/24/20 24 03/25/2024 LIPID PANEL cholesterol, total 175 mg/dL 100-19 9 Not Available [facility] ([facility]) [address] [place], [address], 03/25/2024 09:14:35 03/24/20 24 03/25/2024 LIPID PANEL triglyceride s 215 mg/dL 0-149 above high normal Not Available [facility] ([facility]) [address] [place], [address], 03/25/2024 09:14:35 03/24/20 24 03/25/2024 LIPID PANEL HDL cholesterol 43 mg/dL >39 Not Available [facility] ([facility]) [address] [place], [address], 03/25/2024 09:14:35 03/24/20 24 03/25/2024 LIPID PANEL VLDL cholesterol kaylynn 37 mg/dL 5-40 Not Available [facility] ([facility]) [address] [place], [address], 03/25/2024 09:14:35 03/24/20 24 03/25/2024 LIPID PANEL LDL chol calc ([facility]) 95 mg/dL 0-99 Not Available [facility] ([facility]) [address] [facility], [place], [address], 03/25/2024 09:14:35 03/24/20 24 03/25/2024 CMP14 +EGFR glucose 356 mg/dL 70-99 above high normal Not Available [facility] ([facility]) [address] [facility], [place], [address], 03/25/2024 09:14:37 03/24/20 24 03/25/2024 CMP14 +EGFR BUN 12 mg/dL 6-24 Not Available [facility] ([facility]) [address] [facility], [place], [address], 03/25/2024 09:14:37 03/24/20 24 03/25/2024 CMP14 +EGFR creatinine 0.75 mg/dL 0.57-1 .00 Not Available [facility] ([facility]) [address] [facility], [place], [address], 03/25/2024 09:14:37 03/24/20 24 03/25/2024 CMP14 +EGFR eGFR 101 mL/mi n/1.7 3 >59 Not Available [facility] ([facility]) [address] [facility], [place], [address], 03/25/2024 09:14:37 03/24/2003/25/2024 CMP14 +EGFR BUN/creatini ne ratio 16 9-23 Not Available [facility] ([facility]) [address] [facility], [place], [address], 03/25/2024 09:14:37 03/24/20 24 03/25/2024 CMP14 +EGFR sodium 134 mmol/ L 134-14 4 Not Available [facility] ([facility]) [address] [place], [address], 03/25/2024 09:14:37 03/24/2003/25/2024 CMP14 +EGFR potassium 3.9 mmol/ L 3.5-5. 2 Not Available [facility] ([facility]) [address] [facility], [place], [address], 03/25/2024 09:14:37 03/24/20 24 03/25/2024 CMP14 +EGFR chloride 94 mmol/ L 96-106 below low normal Not Available [facility] ([facility]) [address] [facility] [place], [address], 03/25/2024 09:14:37 03/24/20 24 03/25/2024 CMP14 +EGFR carbon dioxide, total 27 mmol/ L 20-29 Not Available [facility] ([facility]) [address] [facility], [place], [address], 03/25/2024 09:14:37 03/24/2003/25/2024 CMP14 +EGFR calcium 9.1 mg/dL 8.7-10 .2 Not Available [facility] ([facility]) [address] [facility], [place], [address], 03/25/2024 09:14:37 03/24/2003/25/2024 CMP14 +EGFR protein, total 6.9 g/dL 6.0-8. 5 Not Available [facility] ([facility]) [address] [facility] [place], [address], 03/25/2024 09:14:37 03/24/20 24 03/25/2024 CMP14 +EGFR albumin 4.1 g/dL 3.9-4. 9 Not Available [facility] ([facility]) [address] [facility] [place], [address], 03/25/2024 09:14:37 03/24/20 24 03/25/2024 CMP14 +EGFR globulin, total 2.8 g/dL 1.5-4. 5 Not Available [facility] ([facility]) [address] [facility], [place], [address], 03/25/2024 09:14:37 03/24/20 24 03/25/2024 CMP14 +EGFR bilirubin, total 0.3 mg/dL 0.0-1. 2 Not Available [facility] ([facility]) [address] [facility], [place], [address], 03/25/2024 09:14:37 03/24/20 24 03/25/2024 CMP14 +EGFR alkaline phosphatase 115 IU/L 44-121 Not Available [facility] ([facility]) [address] [facility], [place], [address], 03/25/2024 09:14:37 03/24/20 24 03/25/2024 CMP14 +EGFR AST (SGOT) 13 IU/L 0-40 Not Available [facility] ([facility]) [address] [facility], [place], [address], 03/25/2024 09:14:37 03/24/20 24 03/25/2024 CMP14 +EGFR ALT (SGPT) 14 IU/L 0-32 Not Available [facility] ([facility]) [address] [facility], [place], [address], 03/25/2024 09:14:37 03/24/20 24 03/24/2024 HbA1c (hemo globi n A1c), blood HbA1c 10.6 Not Available In-Office Order Internal Use Only DO Not Attach Compendium DO Not Attach Compendium, Do Not Delete/merge, [id number] 03/24/2024 12:13:54 06/27/19 25 06/27/2024 HbA1c (hemo globi n A1c), blood HbA1c 9.9 Not Available In-Office Order Internal Use Only DO Not Attach Compendium DO Not Attach Compendium, Do Not Delete/merge, [id number] 06/27/2024 16:28:48 02/17/20 24 02/17/2024 XR, cervi kaylynn spine No observ ation record ed. [address], [place], [address], 02/23/2024 13:16:30 02/24/20 24 02/23/2024 XR, cervi kaylynn spine No observ ation record ed. [address], [place], [address], 02/24/2024 10:19:02 05/10/20 24 05/10/2024 CT, head + brain , w/o contr ast No observ ation record ed. [address], [place], [address], 05/14/2024 12:32:43 08/16/19 xr shoul claudette lt 3V [facility] [address] [facility] [place] [address] [facility] [place] [address] [facility] [address] [place] [place], [place] [address] EXAM: XR SHOULD ER LT 3V DATE: No compar joy INDICA TION: Multip le falls, should er pain. TECHNI QUE: 3 views FINDIN GS: No fractu re, malali gnment , or arthri tic change . IMPRES AMIRA: Normal exam. Referr ed By: Medhat anderson ly Signed By: Ck Byrd MD on 2:02 PM Interp reted By: Ck Byrd MD, 1:59 PM [facility] [address] [facility], [place], [address], 08/17/2024 14:35:37 Result Notes None recorded. Problems Name Problem SNOMED Code Status Onset Date Resolution Date Notes Provider Name and Address Organization Details Recorded Time Chronic low back pain 824583885 Active 2018 Jennifer bowen RN null, [place] - [facility] 9 09:02:01 Hyperten sive disorder 87343918 Active 2020 Irina Ross MD Attn: Yong dunham,[address] [facility], [place], [address], [facility] - [facility] 3 21:28:07 Depressi ve disorder 24566086 Active 2020 Irina Ross MD Attn: Yong dunham,[address] [facility], [place], [address], [place] - [facility] 3 21:28:07 Pain of left shoulder joint 48773373885 356345 Completed 202106/01/2022 Irina Ross MD Attn: Yong dunham,[address] [facility], [place], [address], [facility] - [facility] 3 21:28:12 Diabetes mellitus 75968530 Active 2014 Glucose >400 at Thania jared [place] null, [place] - [facility] 6 12:51:08 Morbid obesity 111106156 Active Irina Ross MD Attn: Yong dunham,[address] [facility], [place], [address], [facility] - [facility] 3 21:28:07 CT of head abnormal 450945907 Active 202305/10/24 CT needs f/u MRI Irina Ross MD Attn: Brynjulio c dunham,[address] [facility], [place], [address], [place] - [facility] 4 12:32:27 Headache 68839654 Active Irina Ross MD Attn: Yong dunham,[address] [facility], [place], [address], [facility] - [facility] 3 21:28:07 Problem Notes None recorded. Procedures Surgical History Date Name Laterality Status Provider Name and Address Organization Details Recorded Time Other completed Irina Ross MD Attn: Accounting,[address] [facility], [place], [address], [facility] - [facility] 11/29/2014 11:29:16 Imaging Results Imaging Date Name Status LastModified by Organiz ation Details LastModified Time 02/17/2024 XR, cervical spine completed [address], [place], [address], 02/23/2024 13:16:30 02/23/2024 XR, cervical spine completed [address], [place], [address], 02/24/2024 10:19:02 05/10/2024 CT, head + brain, w/o contrast completed [address], [place], [address], 05/14/2024 12:32:43 08/15/2024 xr shoulder lt 3V completed [facility] [address] [facility], [place], [address], 08/17/2024 14:35:37 Procedure Notes None recorded. Medical Equipment None Reported. Allergies Allergen ID Allergen Name Allergen Category Reaction Reaction Severity Criticality Documentation Date Start Date Code Code System Note Provider Name and Address Organization Details Recorded Time 119947 poison kirstin extract environme nt Not available Not available Not available 01/28/2021 19188 6 RxNorm Not Available Not Available Not [...] No t Available tramadol 50 mg tablet TAKE 1 TABLET BY MOUTH THREE TIMES DAILY NEEDED FOR 3 DAYS active Not Available Not Available No t Available amitripty line 50 mg tablet TAKE [...] /min 99 % 99 % 48.5 kg/m2 388971. 34 g 97.3 [degF] 135 mm[Hg] 83 mm[Hg] Carol Ann Hickey MA [facility] 4 14:24:18 Date Recorded Body height Body mass index (BMI) Body weight Body temperature Heart rate Systolic blood pressure Diastolic blood pressure Provider Name and Address Organization Details Last Updated DateTime 4 166.37 cm 47.4 kg/m2 178540. 19 g 98 [degF] 120 /min 110 mm[Hg] 79 mm[Hg] Thania Hong MA [facility] 4 12:13:12 Date Recorded Body height Body mass index (BMI) Body weight Heart rate Oxygen saturation Oxygen saturation in Arterial blood by Pulse oximetry Body temperature Systolic blood pressure Diastolic blood pressure Provider Name and Address Organization Details Last Updated DateTime 4 166.37 cm 48.3 kg/m2 019547. 75 g 112 /min 99 % 99 % 97.7 [degF] 128 mm[Hg] 85 mm[Hg] Morenita dickey MA [facility] 4 10:57:15 Date Recorded Body height Body mass index (BMI) Body weight Heart rate Oxygen saturation Oxygen saturation in Arterial blood by Pulse oximetry Body temperature Systolic blood pressure Diastolic blood pressure Provider Name and Address Organization Details Last Updated DateTime 4 166.37 cm 46.5 kg/m2 578290. 23 g 94 /min 97 % 97 % 97.1 [degF] 138 mm[Hg] 83 mm[Hg] Shawna Cash [facility] 4 11:22:39 Date Recorded Body height Body mass index (BMI) Body weight Body temperature Heart rate Oxygen saturation Oxygen saturation in Arterial blood by Pulse oximetry Systolic blood pressure Diastolic blood pressure Provider Name and Address Organization Details Last Updated DateTime 5 166.37 cm 45.9 kg/m2 054878. 86 g 97.7 [degF] 94 /min 98 % 98 % 138 mm[Hg] 85 mm[Hg] Carol Ann Hickey MA [place] - [facility] 5 14:06:34 Social History Question Answer Notes LastModified by Organizat ion Details LastModified Time Tobacco Smoking Status Never Smoker Irina Ross MD Attn: [place], [address], [place] [facility] 11/29/2014 11:14:40 What Is Your Level Of [...] available 2014 15:44:26 Medical History Condition Response Other Y Diabetes Y Gynecological HistoryNo gynecological history recorded. Obstetrics History GPAL:G 0 P 0 0 0 0 Immunizations Vaccine Type Date Status Note Provider Nam e and Address Organization Details Recorded Time Tdap 6 completed Not Available [facility] 06/10/2019 02:42:34 pneumococcal polysaccharide PPV23 6 completed Not Available [facility] 06/10/2019 02:29:54 COVID-19 vaccine, vector-nr, rS-Ad26, PF, 0.5 mL 1 completed Yesika Faye null, [place] - [facility] 10/16/2020 09:49:08 COVID-19 vaccine, vector-nr, rS-Ad26, PF, 0.5 mL 1 completed Beata Romero MA null, [place] [facility] 05/12/2021 15:41:37 Influenza, split virus, quadrivalent, preservative 6 completed Not Available [facility] 06/10/2019 02:50:26 COVID-19, mRNA, LNP-S, bivalent, PF, 50 mcg/0.5 mL or 25mcg/0.25 mL dose 3 completed Mela Kamara CMA null, [place] - [facility] 08/18/2022 14:22:52 Influenza, split virus, quadrivalent, preservative 8 completed Not Available [facility] 06/10/2019 02:42:02 Influenza, split virus, quadrivalent, PF 0 completed Marah Mccarthy [place] null, [place] [facility] 04/30/2020 17:55:04 Influenza, split virus, quadrivalent, PF 1 completed Shawna Cash null, [place] [facility] 02/28/2021 17:46:52 Influenza, split virus, trivalent, PF 4 completed Carol Ann Hickey [place] null, [place] [facility] 02/01/2024 11:44:05 Influenza, split virus, trivalent, PF 4 completed Irina Ross MD Attn: Accounting,[address] [place], [address], [facility] - [facility] 03/24/2024 12:39:59 Past Encounters Encounter ID Performer Location Encounter Start Date Encounter Closed Date Diagnosis/Indication Diagnosis SNOMED-CT Code Diagnosis ICD10 Code Diagnosis Note [id number] MD Arnie Douglas ([facility]) [address] [place] [address] 08/03/2014 11:32:39 08/09/2014 03:51:25 Type 2 diabetes mellitus 78733947 Goal A1C <7.0. Unknown Control today as [...] visit Return to Clinic in 1 month. [id number] Georgiana katz FP ([facility]) [address] [place] [address] 11/29/2014 10:17:11 11/29/2014 11:34:16 Diabetes mellitus 39851681 -Increase metformin -Start checking FBG -Lab reviewed, TLC recommende d -No ACEI or statin due to possibilit y of future -Weight loss recommende d Gynecologi c examination 01450959 [id number] MD Georgiana Douglas FP ([facility]) [address] [place] [address] 10/14/2015 15:39:07 10/15/2015 09:30:11 Type 2 diabetes mellitus 36285945 E11.9 -A1c high and reviewed -Add glipizide -Annual lab ordered for 3 months from now -Foot exam done -Recommend ed annual eye exam -Pneumovax and TdaP today -Pap UTD Knee pain 39576583 M25.5 61 -NSAIDS and PT -Weight loss recommende d Active or passive immunization 821813291 Z23 [id number] MD Georgiana Douglas [facility] ([facility]) [address] [place] [address] 02/21/2016 11:21:06 02/24/2016 10:11:08 Increased frequency of urination 747389169 R35.0 -Due to hyperglyce sergio-Patien t notified Diabetes mellitus 530961 09 E11.9 -Glipizide increased to 5mg bid-Contin ue metformin- A1c ordered for April- / 3 months Active or passive immunization 521816127 Z23 [id number] MD Georgiana Douglas [facility] ([facility]) [address] [place] [address] 07/02/2017 13:47:07 07/06/2017 14:09:54 Diabetes mellitus 72191862 E11.9 -Labs due and ordered-PC V 23 UTD-No ACEI due to age/female -Flu shot UTD-Given number for [facility] office for eye exam -Weight loss and nutrition reviewed Active or passive immunization 088628637 Z23 Migraine 99525778 G43.90 9 [id number] MD Georgiana Douglas FP ([facility]) [address] [place] [address] 09/15/2018 13:50:17 09/20/2018 14:15:31 Diabetes mellitus 72638167 E11.9 -Uncontrol led, A1c 10.3% today-Star t insulin 20 units daily (instructi ons printed)-C ontinue glipizide and metformin with plan to wean off glipizide- Labs due and ordered-Ne eds ACEI, but still in child bearing age-Needs statin, but not current contracept ion-Health y weight, exercise, and nutrition reviewed-F /U 1 month with log Chronic low back pain 27 4295098 M54.5 -Muscle relaxer prn Essential hypertension 05399912 I10 -Controlle d-Continue HCTZ Headache 99982916 R51 Insomnia 250069076 G47.0 0 -Use and common side effects reviewed-M ay also help with headaches Pharyngitis 453790319 J0 2.9 -Mild sore thraot with strep exposure-T est negative, exam unremarkab le [id number] MD Georgiana Douglas FP ([facility]) [address] [place] [address] 10/10/2018 14:49:40 10/10/2018 15:46:27 Diabetes mellitus 67918655 E11.9 -Uncontrol led-Increa se Lantus to 25 units-Cont inue glipizide and metformin with plan to wean off glipizide- Needs ACEI, but still in child bearing age-Needs statin, but no current contracept ion-Health y weight, exercise, and nutrition reviewed-F /U 1 month with log Dysfunctio n of eustachian tube 91260655 H69.92 -Can also try OTC Sudafed prn [id number] MD Georgiana Douglas FP ([facility]) [address] [place] [address] 01/27/2019 11:53:20 01/27/2019 13:36:18 Diabetes mellitus 91047034 E11.9 -Uncontrol led , improved-I ncrease Lantus to 45 units -Continue glipizide and metformin with plan to wean off glipizide -urine microalbum in negative-N eeds statin, but no current contracept ion -Healthy weight, exercise, and nutrition reviewed -Eye exam at [facility] -F/U 3 months [id number] Irina Ross MD [facility] FP ([facility]) [address] [place] [address] 07/07/2019 14:30:48 07/11/2019 11:32:13 Diabetes mellitus 94891546 E11.9 Last A1C:{{less than 7.0% 7-8% 8-9% [...] depression on PHQ-9 (Patient Health Questionnaire 9) 1223725118 55919 Z13.89 -discussed life stress-dec lined SSRI and CBT at this time-hernan dunham discussed Morbid obesity 066367885 E66.01 [id number] Irina Ross MD [facility] FP ([facility] 104) [address] [place] [address] 04/30/2020 16:56:03 05/01/2020 15:53:54 Diabetes mellitus 11929757 E11.9 Last A1C:{{less than 7.0% 7-8% 8-9% [...] } {{week(s) month(s)*} } Gynecologi c examination 76166524 Z01.419 -pap collected Active or passive immunization 340694223 Z23 Depressive disorder 3548 9007 F32.9 -Stopped citalopram -Start sertraline -Consider CBT Nausea and vomiting 1693 2000 R11.2 Essential hypertension 93276965 I10 -Chronic, uncontroll ed-Usually at goal-Reche ck next visit in 6 weeks [id number] MD Arnie Douglas ([facility]) [address] [place] [address] 05/31/2020 16:08:52 06/18/2020 09:39:07 Diabetes mellitus 18841322 E11.9 Last A1C: greater than 9% Goal [...] 2 months Paresthesi a of upper limb 71593441 R20.2 -Acute, not improving- Possible impingemen t versus local nerve injury-pre dnisone burst Morbid obesity 512844518 E66.01 [id number] MD Georgiana Douglas FP ([facility]) [address] [place] [address] 01/28/2021 09:39:37 01/29/2021 08:28:44 Diabetes mellitus 47928456 E11.9 Last A1C: greater than 9% Goal [...] daily-f/u 1 month Pain in left arm 3467367 00 M79.602 -Chronic, uncontroll ed-Recomme nded PT [id number] Irina Ross MD [facility] ([facility]) [address] [place] [address] 02/28/2021 10:15:43 02/28/2021 18:32:36 Diabetes mellitus 00957872 E11.9 Hypertensive disorder 38 764743 I10 -Chronic, improved on recheck-Co ntinue to monitor Administra tion of influenza vaccine 09296568 Z23 Tenosynovi tis of thumb 331718142 M65.849 -Thumb stuck in extension [id number] MD Georgiana Douglas e FP ([facility] [address]) [address] [place] [address] 06/03/2021 14:52:29 06/04/2021 09:51:55 Diabetes mellitus 39026620 E11.9 Last A1C:{{less than 7.0%* 7-8% 8-9% [...] 12} } {{week(s) month(s)*} } Depressive disorder 0788 9007 F32.9 -Chronic, better-Con tinue sertraline to 100mg daily-f/u 3 months Morbid obesity 269098997 E66.01 [id number] MD Georgiana Douglas [facility] ([facility]) [address] [place] [address] 08/25/2021 14:50:11 09/01/2021 15:02:28 Diabetes mellitus 83342895 E11.9 Last A1C:{{less than 7.0% 7-8%* 8-9% [...] long-a cting insulin ra pid/short- acting insulin}}S tatin:{{terrance vu no decli monse due to adverse reaction/a [...] } Pain of le ft shoulder joint [id number] M25.512 -Acute, worse over the past 2-3 months-Martha pect rotator cuff tear s/p fall-Has insurance now, Ortho referral-X R done at [facility]- heck MRI-f/u with Ortho Morbid obesity 844621548 E66.01 [id number] MD Georgiana Douglas FP ([facility]) [address] [facility] [address] 06/01/2022 15:49:06 06/03/2022 11:12:56 Diabetes mellitus 36310277 E11.9 Last A1C:{{less than 7.0% 7-8% 8-9% [...] c ompleted per patient report due - ronaldoe d annual dilated eye exam*}} -Isacc [place] discussed, she has been doing well this past week and hopes to take meds as prescribed this year as a resolution Next Visit: {{1 2 3* 4 5 6 7 8 9 10 11 12} } {{week(s) month(s)*} } Headache 10356092 R51.9 -Chronic, stable-Com pazine prn Depressive disorder 3548 9007 F32.9 -Chronic, stable-PHQ reviewed-C ontinue sertraline to 100mg daily-f/u 3 months Morbid obesity 734128473 E66.01 [id number] MD Georgiana Douglas FP ([facility]) [address] [place] [address] 09/01/2022 09:43:02 09/02/2022 12:20:49 Diabetes mellitus 71556093 E11.9 Last A1C:{{less than 7.0% 7-8% 8-9% [...] 12} } {{week(s) month(s)*} } Morbid obesity 560128846 E66.01 Snoring 10628337 R06.83 -Daytime fatigue, night snoring, waking with headaches- Sleep eval for ALISON [id number] MD Arnie Douglas ([facility]) [address] [place] [address] 06/15/2023 14:10:45 06/16/2023 14:34:03 Diabetes mellitus 80595104 E11.9 Last A1C: 6.6%Goal A1C less than: 7.0%Curren t Therapy: GLP-1, long-actin g insulin, sulfonylur ea, metforminS tatin: yesACE/ARB : noFoot Exam: completed in the past 12 months-neg ativeNephr opathy Screening: completed in the past 12 months- dueEye Exam: completed per patient reportf/u 6 months Chronic low back pain 27 0504267 M54.50 -Chronic, stable Morbid obesity 856751655 E66.01 -Losing weight on GLP-1 [id number] MD Georgiana Douglas FP ([facility]) [address] [place] [address] 12/14/2023 11:51:25 12/15/2023 12:45:40 Diabetes mellitus 09239774 E11.9 Last A1C: 6.8%Goal A1C less than: 7.0%Curren t Therapy: GLP-1, long-actin g insulin, sulfonylur ea, metforminS tatin: yesACE/ARB : noFoot Exam: completed in the past 12 months-neg ativeNephr opathy Screening: completed in the past 12 monthsEye Exam: completed per patient report7 pound weight loss with GLP-1 Cervical radiculopathy 82511030 M54.12 -Subacute, uncontroll ed C6 radiculopa thy-PT-If no improvemen t with PT, consider cervical spine MRI Depressive disorder 3165 4378 F32.9 -Chronic, uncontroll ed-Change to Prazac-wea n doen to 50mg of sertraline X 1 week and then start 10mg Prozac X 1 week and then 2 caps daily-f/u 6 weeks (scheduled Morbid obesity 904824441 E66.01 -Losing weight on GLP-1 [id number] CHERELLE Lowe FP ([facility] [address]) [address] [place] [address] 02/01/2024 10:43:51 02/02/2024 14:29:08 Diabetes mellitus 31311891 E11.9 Last A1C: 6.8%Goal A1C less than: 7.0%Curren t Therapy: GLP-1, long-actin g insulin, sulfonylur ea, metforminS tatin: yesACE/ARB : noFoot Exam: completed in the past 12 months-neg ativeNephr opathy Screening: completed in the past 12 monthsEye Exam: completed per patient reportLab due and orderedf/u 3 months Administra tion of influenza vaccine [id number] Z23 Depressive disorder 5178 0697 F32.9 -Chronic, controlled -Continue fluoxetine 20mg daily Morbid obesity 827308642 E66.01 -Losing weight on GLP-1 [id number] MD Georgiana Douglas FP ([facility] [address]) [address] [place] [address] 03/24/2024 11:04:54 03/27/2024 09:21:55 Immunization due 246031646 Z28.39 Cervical radiculopathy 77602216 M54.12 -Acute, uncontroll ed C6 radiculopa thy severe-Sta rted PT and has had several sessions, but it is so painful that she cannot fully participat e-C-spine MRI to evaluate for spinal injections +/- surgery-Me drol dose-jong helped, do steroid taper-Cont inue Elavil qhs-Decrea se cyclobenza richard dose to 5mg to reduce sedation-f /u after MRI Diabetes mellitus 964607 09 E11.9 Last A1C: 10.6%, previously controlled Goal A1C less than: 7.0%Curren t Therapy: GLP-1, long-actin g insulin, sulfonylur ea, metforminS tatin: yesACE/ARB : noFoot Exam: completed in the past 12 months-neg ativeNephr opathy Screening: completed in the past 12 monthsEye Exam: completed per patient reportRest art insulinf/u 3 months [id number] Irina Ross MD [facility] ([facility] [address]) [address] [place] [address] 06/27/2024 13:44:56 06/28/2024 14:42:10 Diabetes mellitus 09441499 E11.9 Last A1C: 9.9%Goal A1C less than: 7.0%Curren t Therapy: GLP-1, long-actin g insulin, sulfonylur ea, metforminS tatin: yesACE/ARB : noFoot Exam: completed in the past 12 months-pos itiveNephr opathy Screening: completed in the past 12 months, negativeEy e Exam: completed per patient reportIncr ease insulin to 45f/u 3 months Cervical radiculopathy 10453182 M54.12 -Acute, stable C6/7 radiculopa thy-Starte d PT and had several sessions, but it is so painful that she cannot fully participat e-C-spine MRI declined by insurance- Neurology referral Migraine 95039872 G43.90 9 -Chronic, uncontroll ed-Stop Elavil, no longer helping-St art topiramate -Risks, benefits, alternativ es, and common side effects reviewed-f /u 3 months Morbid obesity 348969364 E66.01 -Losing weight on GLP-1-Star ting topiramate Health Concerns Section Related Observation LastModified by Organization Detai ls LastModified Time None Recorded Concern Status LastModified by Organization Details LastModified Time None Recorded Advance Directives Directive None Recorded Payers Encounter Date Sequence Insurance Name Policy Number Policy Novoa Covered Member ID Novoa Member ID Guarantor Name 06/15/2023 1 [facility] (MEDICAID HMO) [id number] Sapphire Cameron [id number] Sapphire Cameron 12/14/2023 1 [facility] (MEDICAID HMO) [id number] Sapphire Nisha [id number] Sapphire Guerreroris 02/01/2024 1 [facility] (MEDICAID HMO) [id number] Sapphire Nisha [id number] Sapphire Nisha 03/24/2024 1 [facility] (MEDICAID HMO) [id number] Sapphire Nisha [id number] Sapphire Guerreroris 06/27/2024 1 [facility] (MEDICAID HMO) [id number] 0003 Sapphire Guerreroris [id number] Sapphire Cameron Notes Date Note Type Note Provider Name [...] visit. Irina Ross MD Attn: [address] [place], [address], [facility] 06/15/2023 20:35:04 12/14/2023 text/html Sapphire is here [...] moderate. Irina Ross MD Attn: [address] [place], [address], [facility] 12/14/2023 13:58:21 02/01/2024 text/html Sapphire is here t o f/u her mood since a switch to Prozac. She is doing well on her current dose and feels better- less down, interested in activities more, sleep and appetite better. Carol Ann Hickey MA [facility], [facility] 02/01/2024 11:44:15 03/24/2024 text/html Sapphire is here [...] days. Irina Ross MD Attn: [address] [place], [address], [facility] 03/24/2024 12:52:03 06/27/2024 text/html Sapphire is here [...] overall. Irina Ross MD Attn: [address] [place], [address], [facility] 06/28/2024 10:06:01 OBGyn Episode No OBEpisode recorded.
--- NOTE | 2024-09-14 17:34 | ED_ITS ---
HPI - Extremity Injury (Upper) General Chief Complaint: Extremity Injury, Upper Stated Complaint: Left arm numbness/tingling since 1629-No CP/SHOB Time Seen by Provider: 09/14/24 17:06 Source: patient Mode of arrival: ambulatory Limitations: no limitations History of Present Illness HPI narrative: Patient drove herself to the emergency room complaining of sudden onset of pain at the left shoulder, while trying to put her hair up in a ponytail. Hurt left shoulder pop and then her arm fell down tingling and numbness. Patient is telling me that she have History of intermittent similar symptoms in the past, had MRI without significant finding, had physical therapy, Patient denies any fever, chills, nausea, vomiting or neck pain. Related Data Home Medications ?Medication ?Instructions ?Recorded ?Confirmed ?Last Taken ?Type amitriptyline 50 mg tablet 08/01/21 Unknown History cyclobenzaprine 10 mg tablet mg 08/01/21 Unknown History glipizide 10 mg tablet mg 08/01/21 Unknown History hydrochlorothiazide 25 mg tablet 08/01/21 08/01/21 Unknown History ibuprofen 800 mg tablet 08/01/21 Unknown History meloxicam 7.5 mg tablet 08/01/21 Unknown History metformin 1,000 mg tablet mg 08/01/21 Unknown History sertraline 100 mg tablet mg 08/01/21 Unknown History atorvastatin 10 mg tablet 10 mg PO DAILY 05/10/23 Unknown History insulin detemir U-100 100 unit/mL 40 unit subcut QHS 05/10/23 Unknown History (3 mL) subcutaneous pen (Levemir FlexPen) liraglutide 0.6 mg/0.1 mL (18 mg/3 1.8 mg subcut DAILY 05/10/23 Unknown History mL) subcutaneous pen injector (Victoza 2-Jong) Allergies Allergy/AdvReac Type Severity Reaction Status Date / Time No Known Allergies Allergy Unknown Verified 09/14/24 17:02 Review of Systems Review of Systems: All systems reviewed & are unremarkable except as noted in HPI and below PMFSH Past Medical History Medical History Anxiety Depression Diabetes Arthritis Ectopic Surgical History Surgical History History of tubal ligation Family History Family History Mother Atrial fibrillation Father Acute myocardial infarction Social History Social History Smoking status: Never smoker Exam Narrative: General appearance: Well-developed, well-nourished Skin: Normal color Head: Normocephalic, nontraumatic Eyes: Clear conjunctiva ENT: Oropharynx normal, ears normal, nose normal Neck: Supple, nontender Chest and respiratory: Airway patent, no respiratory distress, no accessory muscle use Heart: Regular rate/rhythm Abdomen: Soft, nontender, no organomegaly, quiet bowel sounds Vascular: Normal peripheral pulses, normal capillary refill. Musculoskeletal: Severe diffuse tenderness left supraclavicular muscles, left upper back, left upper chest anteriorly and deltoid muscle laterally. Patient able to abduct left upper extremity slightly above 90 degree. No bruises, no swelling, no deformity or rash Neurologic: Alert and oriented ?3, SPRINKLER INSTALLER is normal as tested, no gross motor deficit Course Vital Signs Vital signs: Vital Signs Temperature 36.6 C 09/14/24 16:56 Pulse Rate 89 09/14/24 16:56 Respiratory Rate 18 09/14/24 16:56 Blood Pressure 147/84 H 09/14/24 16:56 Pulse Oximetry 100 09/14/24 16:56 Oxygen Delivery Room Air 09/14/24 16:56 Temperature 36.6 C 09/14/24 16:56 Pulse Rate 85 09/14/24 19:01 Respiratory Rate 12 09/14/24 19:01 Blood Pressure 116/71 09/14/24 19:01 Pulse Oximetry 98 09/14/24 19:01 Oxygen Delivery Room Air 09/14/24 16:56 MDM - Extremity Injury (Upper) MDM Narrative Medical decision making narrative: Differential diagnosis include rotator cuff injury, strain, sprain of the left shoulder. Less likely cervical radiculopathy. CT cervical spine showed no significant abnormality X-ray of the left shoulder showed no acute abnormality Differential Diagnosis Differential diagnosis: Likely dislocation of shoulder, fracture of humerus, fracture of clavicle and other (Cervical radiculopathy, rotator cuff syndrome) Imaging Data Radiologist's impression: Impressions Shoulder X-Ray 09/14/24 18:02 IMPRESSION: Polyarticular osteoarthritis. No acute fracture or anterior dislocation. Cervical Spine CT 09/14/24 18:40 Impression: Straightening of the normal curvature of the cervical spine, likely muscular in origin. No acute fracture. Critical Care Time Critical Care Time Critical Care Time: No Discharge Plan Discharge Clinical Impression: Sprain of left shoulder Patient Disposition: Home Condition: Stable Instructions: Shoulder Sprain (ED) Additional Instructions: Return if symptoms are worsening , call your family physician for appointment, take Tylenol as as needed for aches and pain, continue home medications. Patient Language: Serbian Prescriptions: New diclofenac sodium 75 mg tablet,delayed release (DR/EC) 75 mg PO BID PRN (Reason: pain) Qty: 20 0RF cyclobenzaprine 10 mg tablet 10 mg PO TID PRN (Reason: muscle spasm) Qty: 20 0RF famotidine [Pepcid] 20 mg tablet 20 mg PO BID Qty: 30 0RF No Action atorvastatin 10 mg tablet 10 mg PO DAILY Victoza 2-Jong 0.6 mg/0.1 mL (18 mg/3 mL) pen injector 1.8 mg subcut DAILY Levemir FlexPen 100 unit/mL (3 mL) insulin pen 40 unit subcut QHS cefpodoxime 200 mg tablet 400 mg PO Q12H 7 Days Qty: 28 0RF Rx Instructions: must administer with a meal/food glipizide 10 mg tablet amitriptyline 50 mg tablet meloxicam 7.5 mg tablet metformin 1,000 mg tablet cyclobenzaprine 10 mg tablet ibuprofen 800 mg tablet sertraline 100 mg tablet hydrochlorothiazide 25 mg tablet prednisone 20 mg tablet 40 mg PO DAILY 5 Days Qty: 10 0RF naproxen 500 mg tablet 500 mg PO BID Qty: 10 0RF omeprazole 40 mg capsule,delayed release(DR/EC) 40 mg PO DAILY Qty: 30 0RF hydrocodone-acetaminophen 5-325 mg tablet 1 tablet PO Q12H PRN (Reason: pain) Qty: 14 0RF cyclobenzaprine 10 mg tablet 10 mg PO BID PRN (Reason: muscle spasm) Qty: 14 0RF methylprednisolone [Medrol (Jong)] 4 mg tablets,dose pack See Rx Instructions PO .COMPLEX Qty: 21 0RF Rx Instructions: orally per package directions cyclobenzaprine 10 mg tablet 10 mg PO TID PRN (Reason: muscle spasm) Qty: 14 0RF lidocaine 5 % adhesive patch,medicated 1 patch topical DAILY Qty: 15 0RF Rx Instructions: leave on most painful area for up to 12 hrs. do not use more than 1 patch in a 24-hour period. Follow-up/Referrals: Cody,Jennifer Kraus MD [Primary Care Provider] -
--- OUTSIDE RECORDS SUMMARY | 2024-09-14 17:51 | XMS_ITS | Clinical Summary ---
Author Organization [facility] Address [address] [place] [address] Care Team Providers Care Jewel Hole Finish Opener Name Role Phone Jennifer Ross MD Primary Care Provider [phone] Allergies Active Allergy Reactions Criticality Noted Date [...] - 08/15/2024 11:59 PM CDT Hospital Encounter [facility] Diagnostic [place] [address] Jennifer Ross MD Discharge Disposition: Home or [...] 1:59 PM Narrative 08/15/2024 2:02 PM CDT [address] [address] EXAM: XR SHOULDER LT 3V DATE: 08/15/2024 No comparison INDICATION: Multiple falls, shoulder pain. TECHNIQUE: 3 views FINDINGS: No fracture, malalignment, or arthritic change. Procedure Note Ck Byrd MD - 08/15/[address] [address] EXAM: XR SHOULDER LT 3V DATE: 08/15/2024 No comparison INDICATION: Multiple falls, shoulder pain. TECHNIQUE: 3 views FINDINGS: No fracture, malalignment, or arthritic change. IMPRESSION: Normal exam. Referred By: Interpreted By: Ck Byrd MD, 08/15/2024 1:59 PM us Jennifer Ross MD GENERAL IMAGING Final Result from Last 3 Months Insurance [place] Care Teams Jewel Hole Finish Opener Relationship Specialty Start Date End Date Jennifer Ross MD [address] [facility] [address] [place] [address] PCP - General 10/14/15
--- OUTSIDE RECORDS SUMMARY | 2024-09-14 17:51 | XMS_ITS | Continuity of Care Document ---
Author Organization [facility] Address [address] [place] [address] Phone Care Team Providers Care Teacher Name Role Phone Jess PT, DYLONT, Gali Unavailable Unavailable Procedures Procedure Date PT Evaluation Low Complexity Therapeutic Activities Therapeutic Exercise Electrical Stimulation Neuromuscular Re-Ed Advance Directives Directive Yes / No Effective Date File Name No Information Encounters Encounter Description Practice Location Reason(s) For Visit Diagnoses Date Provider Providers Copied on Encounter [facility], [address], [place], [place], [id number], tel:[phone] [place] No Information 1 Jess Gali. . [facility], [address], [place], [place], [address], tel:[phone] [place] No Information 1 Jess Gali. . Family History Family Member Type Diagnosis Age At Onset No Information Payers Payer name Insurance type Covered alliance party ID Authoriza tion(s) Self Pay - [...]
--- OUTSIDE RECORDS SUMMARY | 2024-09-14 17:51 | XMS_ITS | Referral Summary ---
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
--- OUTSIDE RECORDS SUMMARY | 2024-09-14 17:51 | XMS_ITS | Clinical Summary ---
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
[2024-09-14] MEDS: ONDANSETRON HCL ODT 4 MG TABLET PO (18:04)
[2024-09-14] MEDS: HYDROmorphone HCL INJ (*CRX) 2 MG/ML VIAL 1 MG IM (18:04)
[2024-09-14] MEDS: KETOROLAC (*BKC) 60 MG/2 ML VIAL IM (18:04)
== END 2024-09-14 19:09 | disposition home or self-care (01) ==
PROVIDERS: Emergency Provider Emergency Medicine; PCP Family Medicine
DX: S43.402A Unspecified sprain of left shoulder joint, initial encounter (principal); X50.1XXA Overexertion from prolonged static or awkward postures, initial encounter; Z79.4 Long term (current) use of insulin; F41.8 Other specified anxiety disorders; E11.9 Type 2 diabetes mellitus without complications
CPT/HCPCS: 72125; 73030; 96372; 99284; A9270; J1171; J1885

== ENCOUNTER 2024-11-22 23:40 | Emergency (ER) | payer OTHER, SELFPAY ==
--- OUTSIDE RECORDS SUMMARY | 2024-11-22 23:41 | XMS_ITS | Continuity of Care Document ---
Author Organization [facility] Address [address] [place] [address] Phone Care Team Providers Care Fire Patrol Name Role Phone Jess PT, DPT, Gali Unavailable Unavailable Procedures Procedure Date Therapeutic Activities PT Evaluation Low Complexity Neuromuscular Re-Ed Electrical Stimulation Therapeutic Exercise Advance Directives Directive Yes / No Effective Date File Name No Information Encounters Encounter Description Practice Location Reason(s) For Visit Diagnoses Date Provider Providers Copied on Encounter [facility], [address], [place], [place], [id number], tel:[phone] [place] No Information 1 Jess Talbert. . [facility], [address], [place], [place], [id number], tel:[phone] [place] No Information 1 Jess Gali. . Family [...]
--- OUTSIDE RECORDS SUMMARY | 2024-11-22 23:41 | XMS_ITS | Clinical Summary ---
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
--- OUTSIDE RECORDS SUMMARY | 2024-11-22 23:41 | XMS_ITS | Data Portability ---
Author Organization [facility] Address [address] [facility] [place] [address] Care Team Providers Care Legal Cashier Name Role Phone IRINA ROSS Primary Care Provider Assessment No assessment recorded. Plan of Treatment Reminders Order Date Submit Date Provider Last Modified By Organization Details Last Modified Time Details Appointments ANY 15 2024 04:00P M Irina Ross MD Not available Not available Not available Lab HbA1c (hemog lobin A1c), blood 2024 025 [email or web address] In-Office Order, Internal Use Only DO Not Attach Compendium DO Not Attach Compendium, Do Not Delete/merge, [id number] 06/27/2024 20:16:01 HbA1c (hemog lobin A1c), blood 2023 024 [email or web address] In-Office Order, Internal Use Only DO Not Attach Compendium DO Not Attach Compendium, Do Not Delete/merge, [id number] 03/24/2024 12:39:59 albumi n/crea tinine , mass ratio, urine 2023 024 [facility], [address], [place], [address], 03/25/2024 09:14:34 lipid panel, serum 2023 024 [facility], [address], [address], [place], [address], 03/25/2024 09:14:36 CMP, serum or plasma 2023 024 [facility], [address] [facility], [place], [address], 03/25/2024 09:14:37 HbA1c (hemog lobin A1c), blood 2023 024 [email or web address] In-Office Order, Internal Use Only DO Not Attach Compendium DO Not Attach Compendium, Do Not Delete/merge, [id number] 12/14/2023 13:34:33 CMP, serum or plasma 2023 024 [facility], [address] [facility], [address], [place], [address], 06/15/2023 14:37:51 lipid panel, serum 2023 024 [facility], [address] [place] [address], [address], [place], [address], 06/15/2023 14:37:50 albumi n/crea tinine , mass ratio, urine 2023 024 [facility], [address] [facility], [address], [place], [address], 06/15/2023 14:37:51 HbA1c (hemog lobin A1c), blood 2023 024 [email or web address] In-Office Order, Internal Use Only DO Not Attach Compendium DO Not Attach Compendium, Do Not Delete/merge, [id number] 06/15/2023 20:32:59 Referral physic al therap ist referr al - 43yo F with cervic al radicu lopath y X 4-6 weeks. please evalua te and treat. 2023 024 [facility], [address] [place] [address], [place], [address], 02/22/2024 13:11:38 Procedures None record ed. Surgeries None record ed. Imaging MRI, cervic al spine, w/o contra st [address] Scheduling, [facility], [place], [address], 05/04/2024 11:07:39 Medication Orders topira mate 50 mg tablet [address] [facility], [address] [place] [address], [id number], 06/28/2024 09:54:57 Levemi r U-100 Insuli n 100 unit/m L subcut aneous soluti on [address] [facility] [address] [facility], [address] [place] [address], [id number], 06/28/2024 10:01:14 cyclob enzapr ine 5 mg tablet [address] [facility] [address] [facility], [address] [place] [address], [id number], 06/28/2024 10:00:39 predni sone 10 mg tablet 2023 025 [facility], [address] [place] [address], [id number], 06/28/2024 10:01:11 fluoxe mehul 20 mg capsul e [address] [facility] [address] [facility], [address] [place] [address], [id number], 02/01/2024 11:14:28 fluoxe mehul 10 mg capsul e 2023 024 [facility], [address] [place] [address], [id number], 02/01/2024 11:15:08 cyclob enzapr ine 10 mg tablet 2023 024 [facility], [address] [facility], [place], [address], 03/24/2024 12:50:21 glipiz jacoby 10 mg tablet 2023 024 [facility], [address] [facility], [place], [address], 06/15/2023 14:47:14 Patient TargetsNo targets recorded. Patient Instructions Encounter Date Encounter Id Patient Instructions Last Modified By Organization Details Last Modified Time 06/15/2023 [id number] A healthy lifestyle: care instructions ana8 Not available 06/15/2023 20:33:28 12/14/2023 [id number] A healthy lifestyle: care instructions Not available 12/14/2023 13:56:32 02/01/2024 [id number] A healthy lifestyle: care instructions Not available 02/01/2024 11:33:06 06/27/2024 [id number] A healthy lifestyle: care instructions Not available 06/28/2024 10:03:55 Reason for Referral Physical Therapist Referral for Cervical radiculopathy 43yo F with cervical radiculopathy X 4-6 weeks. please evaluate and treat. Referring Physician: Irina Ross, Natural Sciences Department Chair, Encounter Date: 12/14/2023 Results Created Date Observation Date Name Description Value Unit Range Abnormal Flag Note LastModifiedBy Organization Detail LastModifiedTime 06/15/1906/15/2023 HbA1c (hemo globi n A1c), blood HbA1c 6.6 Not Available In-Office Order Internal Use Only DO Not Attach Compendium DO Not Attach Compendium, Do Not Delete/merge, [id number] 06/15/2023 14:49:50 12/14/19 24 12/14/2023 HbA1c (hemo globi n A1c), blood HbA1c 6.8 Not Available In-Office Order Internal Use Only DO Not Attach Compendium DO Not Attach Compendium, Do Not Delete/merge, [id number] 12/14/2023 12:52:14 03/24/20 24 03/25/2024 ALBUM IN/CR EATIN INE RATIO ,URIN E creatinine, urine 44.3 mg/dL notest ab. Not Available [facility] ([facility]) [address] [facility] [place], [address], 03/25/2024 09:14:34 03/24/20 24 03/25/2024 ALBUM IN/CR EATIN INE RATIO ,URIN E albumin, urine 5.8 ug/mL notest ab. Not Available [facility] ([facility]) [address] [facility], [place], [address], 03/25/2024 09:14:34 03/24/20 24 03/25/2024 ALBUM IN/CR EATIN INE RATIO ,URIN E alb/creat ratio 13 mg/g_ creat 0-29 Janis l: 0 - 29 Moder ately incre ased: 30 - 300 Sever vivek incre ased: >300 Not Available [facility] ([facility]) [address] [facility], [place], [address], 03/25/2024 09:14:34 03/24/20 24 03/25/2024 LIPID PANEL cholesterol, total 175 mg/dL 100-19 9 Not Available [facility] ([facility]) [address] [facility], [place], [address], 03/25/2024 09:14:35 03/24/20 24 03/25/2024 LIPID PANEL triglyceride s 215 mg/dL 0-149 above high normal Not Available [facility] ([facility]) [address] [place], [address], 03/25/2024 09:14:35 03/24/20 24 03/25/2024 LIPID PANEL HDL cholesterol 43 mg/dL >39 Not Available [facility]) [address] [facility], [place], [address], 03/25/2024 09:14:35 03/24/20 24 03/25/2024 LIPID PANEL VLDL cholesterol kaylynn 37 mg/dL 5-40 Not Available [facility]) [address] [facility], [place], [address], 03/25/2024 09:14:35 03/24/20 24 03/25/2024 LIPID PANEL LDL chol calc ([facility]) 95 mg/dL 0-99 Not Available [facility]) [address] [facility], [place], [address], 03/25/2024 09:14:35 03/24/20 24 03/25/2024 CMP14 +EGFR glucose 356 mg/dL 70-99 above high normal Not Available [facility] ([facility]) [address] [facility], [place], [address], 03/25/2024 09:14:37 03/24/20 24 03/25/2024 CMP14 +EGFR BUN 12 mg/dL 6-24 Not Available [facility] ([facility]) [address] [facility], [place], [address], 03/25/2024 09:14:37 03/24/20 24 03/25/2024 CMP14 +EGFR creatinine 0.75 mg/dL 0.57-1 .00 Not Available [facility] ([facility]) [address] [facility], [place], [address], 03/25/2024 09:14:37 03/24/20 24 03/25/2024 CMP14 +EGFR eGFR 101 mL/mi n/1.7 3 >59 Not Available [facility] ([facility]) [address] [facility], [place], [address], 03/25/2024 09:14:37 03/24/20 24 03/25/2024 CMP14 +EGFR BUN/creatini ne ratio 16 9-23 Not Available [facility]) [address] [facility], [place], [address], 03/25/2024 09:14:37 03/24/20 24 03/25/2024 CMP14 +EGFR sodium 134 mmol/ L 134-14 4 Not Available [facility] ([facility]) [address] [facility] [place], [address], 03/25/2024 09:14:37 03/24/20 24 03/25/2024 CMP14 +EGFR potassium 3.9 mmol/ L 3.5-5. 2 Not Available [facility] ([facility]) [address] [facility] [place], [address], 03/25/2024 09:14:37 03/24/2003/25/2024 CMP14 +EGFR chloride 94 mmol/ L 96-106 below low normal Not Available [facility] ([facility]) [address] [facility] [place], [address], 03/25/2024 09:14:37 03/24/20 24 03/25/2024 CMP14 +EGFR carbon dioxide, total 27 mmol/ L 20-29 Not Available [facility] ([facility]) [address] [facility] [place], [address], 03/25/2024 09:14:37 03/24/20 24 03/25/2024 CMP14 +EGFR calcium 9.1 mg/dL 8.7-10 .2 Not Available [facility] ([facility]) [address] [facility] [place], [address], 03/25/2024 09:14:37 03/24/2003/25/2024 CMP14 +EGFR protein, total 6.9 g/dL 6.0-8. 5 Not Available [facility] ([facility]) [address] [facility] [place], [address], 03/25/2024 09:14:37 03/24/20 24 03/25/2024 CMP14 +EGFR albumin 4.1 g/dL 3.9-4. 9 Not Available [facility] ([facility]) [address] [facility] [place], [address], 03/25/2024 09:14:37 03/24/20 24 03/25/2024 CMP14 +EGFR globulin, total 2.8 g/dL 1.5-4. 5 Not Available [facility] ([facility]) [address] [facility], [place], [address], 03/25/2024 09:14:37 03/24/20 24 03/25/2024 CMP14 +EGFR bilirubin, total 0.3 mg/dL 0.0-1. 2 Not Available [facility] ([facility]) [address] [facility], [place], [address], 03/25/2024 09:14:37 03/24/20 24 03/25/2024 CMP14 +EGFR alkaline phosphatase 115 IU/L 44-121 Not Available [facility]) [address] [facility], [place], [address], 03/25/2024 09:14:37 03/24/20 24 03/25/2024 CMP14 +EGFR AST (SGOT) 13 IU/L 0-40 Not Available [facility] ([facility]) [address] [facility], [place], [address], 03/25/2024 09:14:37 03/24/20 24 03/25/2024 CMP14 +EGFR ALT (SGPT) 14 IU/L 0-32 Not Available [facility] ([facility]) [address] [facility], [place], [address], 03/25/2024 09:14:37 03/24/20 24 03/24/2024 HbA1c (hemo globi n A1c), blood HbA1c 10.6 Not Available In-Office Order Internal Use Only DO Not Attach Compendium DO Not Attach Compendium, Do Not Delete/merge, [id number] 03/24/2024 12:13:54 06/27/19 25 06/27/2024 HbA1c (hemo globi n A1c), blood HbA1c 9.9 Not Available In-Office Order Internal Use Only DO Not Attach Compendium DO Not Attach Compendium, Do Not Delete/merge, [id number] 06/27/2024 16:28:48 02/17/20 24 02/17/2024 XR, cervi kaylynn spine No observ ation record ed. [address], [place], [address], 02/23/2024 13:16:30 02/24/2002/23/2024 XR, cervi kaylynn spine No observ ation record ed. [address], [place], [address], 02/24/2024 10:19:02 05/10/2005/10/2024 CT, head + brain , w/o contr ast No observ ation record ed. [address], [place], [address], 05/14/2024 12:32:43 08/16/19 xr shoul claudette lt 3V [facility] [address] [facility] [place] [address] [address] [facility] [place] [address] [facility] [place] [address] EXAM: XR SHOULD ER LT 3V DATE: No compar joy INDICA TION: Multip le falls, should er pain. TECHNI QUE: 3 views FINDIN GS: No fractu re, malali gnment , or arthri tic change . IMPRES AMIRA: Normal exam. Referr ed By: Medhat anderson ly Signed By: Ck Byrd MD on 2:02 PM Interp reted By: Ck Byrd MD, 1:59 PM [facility] [address], [place], [address], 08/17/2024 14:35:37 09/16/1909/14/2024 XR, shoul claudette, 2 or more view No observ ation record ed. [address], [place], [address], 09/22/2024 11:14:56 Result Notes None recorded. Problems Name Problem SNOMED Code Status Onset Date Resolution Date Notes Provider Name and Address Organization Details Recorded Time Chronic low back pain 937027586 Active 2018 Jennifer bowen RN null, [place] - [facility] 9 09:02:01 Hyperten sive disorder 91051689 Active 2020 Irina Ross MD Attn: Yong dunham,[address] [facility], [place], [address], [place] [facility] 3 21:28:07 Depressi ve disorder 62063688 Active 2020 Irina Ross MD Attn: Yong dunham,[address] [facility], [place], [address], [place] [facility] 3 21:28:07 Pain of left shoulder joint 51825281735 843018 Completed 202106/01/2022 Irina Ross MD Attn: Yong dunham,[address] [facility], [place], [address], [place] [facility] 3 21:28:12 Diabetes mellitus 12866136 Active 2014 Glucose >400 at [place], [place] null, [place] - [facility] 6 12:51:08 Morbid obesity 658884916 Active Irina Ross MD Attn: Yong g,[address] [facility], [place], [address], [place] [facility] 3 21:28:07 CT of head abnormal 689244938 Active 202305/10/24 CT needs f/u MRI Irina Ross MD Attn: Yong dunham,[address] [facility], [place], [address], [place] [facility] 4 12:32:27 Headache 82476075 Active Irina Ross MD Attn: Yong dunham,[address] [facility], [place], [address], [place] [facility] 3 21:28:07 Problem Notes Documentation Provider Name and Address Organization Details Recorded Time Physical Therapist Consult Note : [facility] [place] [address] Patient Name: SUNITA IVAN Date of : 1980 Med Rec #: [id number] Date of Service: 03/06/2024 Disch Date: 03/06/2024 Physical Therapy Evaluation Date: 03/06/2024 Patient Name: Sunita Ivan : 1980 Diagnosis: The primary encounter diagnosis was Cervical radiculopathy. Diagnoses of Left shoulder pain and Impingement of left shoulder were also pertinent to this visit. Start Time: 1545 Stop Time: 1630 AMB PT SUBJECTIVE EVAL: History of Present Illness: Mechanism of injury: Patient is 44 years old female presented with the chief complain of left side neck pain radiating down to left shoulder, pain started about a month ago, went to the ER The onset of pain is ambiguous She has a history of rotator cuff tear on the same shoulder about a year ago She occasionally experience some tingling but no numbness Pain aggravates with any shoulder movement, reaching forward, overhead her helps her with all the daily and self care activities Turning head to the right side also aggravates the pain She has to keep her shoulder tucked in with body to help with the pain, unable to sleep on left side Has to take sleep to aid in order to sleep about 4-6 hours, other pain would wake her up Topical ointments/patches helps Pain: Current pain ratin/10 At worst pain ratin/10 Quality: Dull ache and throbbing Relieving factors: Medications and support Aggravating factors: Movement and lifting Progression: Unchanged Treatments: Current treatment: physical therapy Patient Goals: Patient goals for therapy: Decreased pain, increased motion, increased strength and independence with ADLs/IADLs Objective Palpation Left Hypertonic in the levator scapulae, middle trapezius and upper trapezius. Tenderness of the rhomboids, supraspinatus and thoracic paraspinals. Tenderness Left Shoulder Tenderness in the SC joint. Cervical/Thoracic Screen Cervical range of motion within normal limits with the following exceptions: Cervical ROM Flexion: wfl Extension:wfl R side Bendin % motion- pain in left side L side Bendin% motion - no pain Rotations: Pain with R turn Active Range of Motion Left Shoulder Flexion: 90 degrees with pain Extension: 39 degrees with pain Abduction: 89 degrees with pain External rotation 90degree: with pain Internal rotation 90degree: with pain Strength/Myotome Testing Left Shoulder Planes of Motion Flexion: 3 Extension: 3 External rotation at 90degree: 3 Internal rotation at 90degree: 3 Right Shoulder Planes of Motion Flexion: 4 Extension: 4 Abduction: 4 External rotation at 90degree: 4 Internal rotation at 90degree: 4 Tests Cervical Left Positive ULTT3. Left Shoulder Positive Hawkin's and Neer's. Physical Therapy Certification Form - Joint Treatment Today: Initial Evaluation completed with patient education on evaluation findings and plan of care HEP instruction: see wrapup Outcome tool: NDI Score: 34/80 Therapy Exercise see flowsheet Timed Code Tx Minutes 10 Units 01 Total Tx Time 45 10 Therapeutic Exercise, 35 Mod Therapy Diagnosis: Pain in Joint - left shoulder joint Pain in Area - left upper arm Stiffness- left shoulder joint Disorder of Muscle- unspecified tightness Patient demonstrated Good understanding of above education and HEP. Rehab Potential (Good ) Assessment: Patient is 44 years old female presented with the chief complain cervical radiculopathy, she presents with left sided neck pain radiating down to left shoulder and scapular region, she is limited in her ability to reach, lift or perform functional movement on Left arm, Objectively presents with Cervical paraspinal tenderness,significant muscle guarding, limited shoulder ROM, strength deficits, special tests also suggest left shoulder impingement. She will benefit from skilled physical therapy to address her deficits. Therapy Goals: Short Term Goals: to be met in 5-6 visits Increase ROM/ flexibility of Cervical and Left shoulder flexion/abd > 110 deg and w/o pain Good Posture/body Mechanics Independent HEP to allow for good carryover of the exercises provided Decrease pain by 50% with movements in all planes of motion Increase strength by at least 1 grade of left shoulder Accreditation Manager Goals to be met by d/c: Increase ROM of left shoulder as equal as compared to contralateral extremity Increase strengths of left shoulder as equal as compared to contralateral extremity Demonstrate improved score on outcome measure scale of NDI by at least 9 points Assessment Eval Complexity Personal Factor/Co-morbidities: 1-2 (Mod) Anxiety, BMI, Frequency Examination of Body Systems Needing Addressed: 3 or more (Mod) Carrying and Handling Deficits, Household Tasks Deficits, LE Deficits, Muscle Tension, Self Care Deficits, Sleep Deficits, UE Deficits Clinical Presentation of Patient: Evolving (Mod) Evolving and changing characteristics - Varying Pain with Activity Clinical Decision Making: Mod Patient to be seen for: balance, biofeedback, body mechanics education, flexibilty, gait, home exercise program, instruction in self-help/behavior modification, manual therapy, modalities, neuromuscular reeducation, posture education, PRN, ROM, strengthening Next Visit: Review HEP and patient education. Cervical /scapular stretches, Left Shoulder AAROM, Strengthening as well as scapular strengthening Frequency: 2 times per week for 30-60 minutes for 12 visits. Physical Therapy Visit Note: Patient Name: Sunita Ivan Diagnosis: Cervical radiculopathy (primary encounter diagnosis) Left shoulder pain Impingement of left shoulder SUBJECTIVE Therapy Visit Treatment Day: Total Approved Visits: 12 visits Authorization Expiration Date: Insurance: [employer] Plan of Care: Cervical /scapular stretches, Left Shoulder AAROM, Strengthening as well as scapular strengthening Diagnosis: cervical radiculopathy Referring Provider: Irina Ross MD Hand Dominance: Right OBJECTIVE Treatment provided today: Therapeutic Exercise - 31945 Patient/Family Education: Home exercise program Therapist: JOVITA NGO PT Date: 03/06/24 Time: 3:39 PM Physician Signature: Date: Time: Patient Name: Sunita Ivan : 1980 Signed by: IRINA ROSS 03/09/2024 09:03 AM Irina Ross MD Attn: [place], [address], [facility] 03/09/2024 15:58:06 Physical Therapist Consult Note : [place] [address] Patient Name: SUNITA IVAN Date of : 1980 Med Rec #: [id number] Date of Service: 04/25/2024 Disch Date: [id number] 1980 04/25/2024 Patient to be discharged from physical therapy due to no return and no future appointments scheduled at this time Jovita Ngo PT Signed by: JOVITA NGO 04/25/2024 11:22 AM Irina Ross MD Attn: [address]ing,[address] [place], [address], [facility] 04/26/2024 12:36:32 Procedures Surgical History Date Name Laterality Status Provider Name and Address Organization Details Recorded Time Other completed Irina Ross MD Attn: Accounting,[address] [facility], [place], [address], [facility] 11/29/2014 11:29:16 Imaging Results None recorded. Procedure Notes None recorded. Medical Equipment None Reported. Allergies Allergen ID Allergen Name Allergen Category Reaction Reaction Severity Criticality Documentation Date Start Date Code Code System Note Provider Name and Address Organization Details Recorded Time 423382 poison kirstin extract environme nt Not available Not available Not available 01/28/2021 75416 6 RxNorm Carol Ann Hickey MA [facility], [place] - [facility] 09:51:02 No known drug allergies Medications Name Sig Start Date Stop Date Status Note LastModified by Organization Details LastModified Time Prescript ion - Prior Authoriza tion Request active Not Available Not Available Not Available cyclobenz aprine 10 mg tablet TAKE 1 TABLET BY MOUTH THREE TIMES DAILY NEEDED FOR MUSCLE SPASM active Not Available Not Available No t Available metformin 500 mg tablet Take 1 [...] TABLET BY MOUTH ONCE DAILY AT BEDTIME 2024 active Not Available Not Available Not Avai lable amoxicill in 500 mg tablet 12/13 completed [...] completed Not Available Not Available Not Available famotidin e 20 mg tablet TAKE 1 TABLET BY MOUTH TWICE DAILY active Not Available Not Available No t Available amitripty line 25 mg tablet TAKE [...] completed Not Available Not Available Not Available diclofena c sodium 75 mg tablet,de layed release TAKE 1 TABLET BY MOUTH TWICE DAILY active Not Available Not Available No t Available hydrochlo rothiazid e 25 mg tablet [...] Available Not Available naproxen 500 mg tablet Take 1 tablet by mouth twice daily 2024 active Not Available Not Available Not Avai lable oxycodone 5 mg tablet TAKE 1 TABLET [...] /min 99 % 99 % 48.5 kg/m2 334820. 34 g 97.3 [degF] 135 mm[Hg] 83 mm[Hg] Carol Ann Hickey MA [facility] 4 14:24:18 Date Recorded Body height Body mass index (BMI) Body weight Body temperature Heart rate Oxygen saturation Oxygen saturation in Arterial blood by Pulse oximetry Systolic blood pressure Diastolic blood pressure Provider Name and Address Organization Details Last Updated DateTime 5 166.37 cm 45.9 kg/m2 809719. 86 g 97.7 [degF] 94 /min 98 % 98 % 138 mm[Hg] 85 mm[Hg] Carol Ann Hickey MA [facility] 5 14:06:34 Date Recorded Body height Body mass index (BMI) Body weight Body temperature Heart rate Systolic blood pressure Diastolic blood pressure Provider Name and Address Organization Details Last Updated DateTime 4 166.37 cm 47.4 kg/m2 286263. 19 g 98 [degF] 120 /min 110 mm[Hg] 79 mm[Hg] Thania Hong MA [facility] 4 12:13:12 Date Recorded Body height Body mass index (BMI) Body weight Heart rate Oxygen saturation Oxygen saturation in Arterial blood by Pulse oximetry Body temperature Systolic blood pressure Diastolic blood pressure Provider Name and Address Organization Details Last Updated DateTime 4 166.37 cm 48.3 kg/m2 200954. 75 g 112 /min 99 % 99 % 97.7 [degF] 128 mm[Hg] 85 mm[Hg] Morenita dickey MA [facility] 4 10:57:15 Date Recorded Body height Body mass index (BMI) Body weight Heart rate Oxygen saturation Oxygen saturation in Arterial blood by Pulse oximetry Body temperature Systolic blood pressure Diastolic blood pressure Provider Name and Address Organization Details Last Updated DateTime 4 166.37 cm 46.5 kg/m2 408723. 23 g 94 /min 97 % 97 % 97.1 [degF] 138 mm[Hg] 83 mm[Hg] Shawna Cash [place] - [facility] 4 11:22:39 Social History Question Answer Notes LastModified by Hoodinn Details LastModified Time Tobacco Smoking Status Never Smoker Irina Ross MD Attn: [place], [address], [facility] 11/29/2014 11:14:40 What Was The Date Of Your Most Recent Tobacco Screening? 06/27/2024 [email or web address] Information not available 06/27/2024 Sex: Unknown Functional Status Question Answer Note LastModified by Hoodinn Details LastModified Time Do you use any illicit or recreational drugs? No [email or web address] Information not available 02/28/2021 Do you or have you ever used any other forms of tobacco or nicotine? No [email or web address] Information not available 01/28/2021 What is your level of alcohol consumption? None [email or web address] Information not available 08/03/2014 Mental Status None recorded. Family History Relationship [...] Recorded Time Tdap 6 completed Not Available [facility] 06/10/2019 02:42:34 pneumococcal polysaccharide PPV23 6 completed Not Available [facility] 06/10/2019 02:29:54 COVID-19 vaccine, vector-nr, rS-Ad26, PF, 0.5 mL 1 completed Yesika Faye null, [facility] 10/16/2020 09:49:08 COVID-19 vaccine, vector-nr, rS-Ad26, PF, 0.5 mL 1 completed Beata Romero MA null, [place] [facility] 05/12/2021 15:41:37 Influenza, split virus, quadrivalent, preservative 6 completed Not Available [facility] 06/10/2019 02:50:26 COVID-19, mRNA, LNP-S, bivalent, PF, 50 mcg/0.5 mL or 25mcg/0.25 mL dose 3 completed Mela Kamara CMA null, [place] [facility] 08/18/2022 14:22:52 Influenza, split virus, quadrivalent, preservative 8 completed Not Available [facility] 06/10/2019 02:42:02 Influenza, split virus, quadrivalent, [...] completed Irina Ross MD Attn: Accounting[address] [place], [address], [place] [facility] 03/24/2024 12:39:59 Past Encounters Encounter ID Performer Location Encounter Start Date Encounter Closed Date Diagnosis/Indication Diagnosis SNOMED-CT Code Diagnosis ICD10 Code Diagnosis Note [id number] Irina Ross MD [facility] ([address]) [address] [place] [address] 08/03/2014 11:32:39 08/09/2014 03:51:25 Type 2 diabetes mellitus 39782829 Goal A1C <7.0. Unknown Control today as [...] visit Return to Clinic in 1 month. [id number] MD [facility] ([address]) [address] [place] [address] 11/29/2014 10:17:11 11/29/2014 11:34:16 Diabetes mellitus 26408235 -Increase metformin -Start checking FBG -Lab reviewed, TLC recommende d -No ACEI or statin due to possibilit y of future -Weight loss recommende d Gynecologi c examination 03502265 [id number] MD [facility] ([address]) [address] [place] [address] 10/14/2015 15:39:07 10/15/2015 09:30:11 Type 2 diabetes mellitus 46056776 E11.9 -A1c high and reviewed -Add glipizide -Annual lab ordered for 3 months from now -Foot exam done -Recommend ed annual eye exam -Pneumovax and TdaP today -Pap UTD Knee pain 34591122 M25.5 61 -NSAIDS and PT -Weight loss recommende d Active or passive immunization 791476418 Z23 [id number] MD [facility] ([address]) [address] [place] [address] 02/21/2016 11:21:06 02/24/2016 10:11:08 Increased frequency of urination 239274156 R35.0 -Due to hyperglyce sergio-Patien t notified Diabetes mellitus 880093 09 E11.9 -Glipizide increased to 5mg bid-Contin ue metformin- A1c ordered for April-F /U 3 months Active or passive immunization 742408772 Z23 [id number] MD Georgiana [facility] ([address]) [address] [place] [address] 07/02/2017 13:47:07 07/06/2017 14:09:54 Diabetes mellitus 04386607 E11.9 -Labs due and ordered-PC V 23 UTD-No ACEI due to age/female -Flu shot UTD-Given number for [facility] office for eye exam -Weight loss and nutrition reviewed Active or passive immunization 404031273 Z23 Migraine 20707464 G43.90 9 [id number] MD Georgiana [facility] ([address]) [address] [place] [address] 09/15/2018 13:50:17 09/20/2018 14:15:31 Diabetes mellitus 24298335 E11.9 -Uncontrol led, A1c 10.3% today-Star t insulin 20 units daily (instructi ons printed)-C ontinue glipizide and metformin with plan to wean off glipizide- Labs due and ordered-Ne eds ACEI, but still in child bearing age-Needs statin, but not current contracept ion-Health y weight, exercise, and nutrition reviewed-F /U 1 month with log Chronic low back pain 27 6506865 M54.5 -Muscle relaxer prn Essential hypertension 60517746 I10 -Controlle d-Continue HCTZ Headache 95034887 R51 Insomnia 902198555 G47.0 0 -Use and common side effects reviewed-M ay also help with headaches Pharyngitis 774185020 J0 2.9 -Mild sore thraot with strep exposure-T est negative, exam unremarkab le [id number] MD Georgiana Douglas [facility] ([address]) [address] [place] [address] 10/10/2018 14:49:40 10/10/2018 15:46:27 Diabetes mellitus 26719681 E11.9 -Uncontrol led-Increa se Lantus to 25 units-Cont inue glipizide and metformin with plan to wean off glipizide- Needs ACEI, but still in child bearing age-Needs statin, but no current contracept ion-Health y weight, exercise, and nutrition reviewed-F /U 1 month with log Dysfunctio n of eustachian tube 74898397 H69.92 -Can also try OTC Sudafed prn [id number] MD Georgiana Douglas [facility] ([address]) [address] [place] [address] 01/27/2019 11:53:20 01/27/2019 13:36:18 Diabetes mellitus 61167072 E11.9 -Uncontrol led , improved-I ncrease Lantus to 45 units -Continue glipizide and metformin with plan to wean off glipizide -urine microalbum in negative-N eeds statin, but no current contracept ion -Healthy weight, exercise, and nutrition reviewed -Eye exam at [facility] -F/U 3 months [id number] Irina Ross MD Cordovakhari murray [facility] ([address]) [address] [place] [address] 07/07/2019 14:30:48 07/11/2019 11:32:13 Diabetes mellitus 65749189 E11.9 Last A1C:greate r than 9% Goal A1C less than:7.0% Current Therapy:me tformin sulfonylur ea long-actin g insulin Statin:dec lined RENÉ/ARB:co ntraindica jazlyn, child bearing age Foot Exam:compl eted in the past 12 months-neg ative Nephropath y Screening: completed in the past 12 months- negative Pneumovax 23:UTD Eye Exam:due- recommende d annual dilated eye exam Patient Education: healthy diet: yes exercise: yes weight loss: yes foot care: yes complicati ons of uncontroll ed diabetes: yes medication compliance : yes -Increase Lantus to 50 units daily Next Visit: 3 month(s) Positive s creening for depression on PHQ-9 (Patient Health Questionnaire 9) 1782433948 34943 Z13.89 -discussed life stress-dec lined SSRI and CBT at this time-copin charla discussed Morbid obesity 687313223 E66.01 [id number] MD Georgiana Douglas [facility] ([address]) [address] [place] [address] 04/30/2020 16:56:03 05/01/2020 15:53:54 Diabetes mellitus 28179475 E11.9 Last A1C:greate r than 9% Goal A1C less than:7.0% Current Therapy:lo ng-acting insulin sulfonylur ea metforminS tatin:no RENÉ/ARB:co ntraindica jazlyn Foot Exam:compl eted in the past 12 months-neg ative Nephropath y Screening: due Pneumovax 23:UTD Eye Exam:due- recommende d annual dilated eye exam Patient Education: healthy diet: yes exercise: yes weight loss: yes foot care: yes complicati ons of uncontroll ed diabetes: yes medication compliance : yes Change Lantus to 30 units bid Next Visit: 3 month(s) Gynecologi c examination 73487142 Z01.419 -pap collected Active or passive immunization 467156911 Z23 Depressive disorder 2218 9007 F32.9 -Stopped citalopram -Start sertraline -Consider CBT Nausea and vomiting 1691999 R11.2 Essential hypertension 13577532 I10 -Chronic, uncontroll ed-Usually at goal-Reche ck next visit in 6 weeks [id number] MD Georgiana Douglas ([facility]) [address] [place] [address] 05/31/2020 16:08:52 06/18/2020 09:39:07 Diabetes mellitus 93121331 E11.9 Last A1C: greater than 9% Goal [...] 2 months Paresthesi a of upper limb 94840196 R20.2 -Acute, not improving- Possible impingemen t versus local nerve injury-pre dnisone burst Morbid obesity 570230295 E66.01 [id number] MD Arnie Douglas ([address]) [address] [place] [address] 01/28/2021 09:39:37 01/29/2021 08:28:44 Diabetes mellitus 18947101 E11.9 Last A1C: greater than 9% Goal [...] bid reviewed -f/u 1 month Depressive disorder 4907 6467 F32.9 -Chronic, uncontroll ed-Schedul e with Renee for CBT on exit-Stop citalopram -Increase sertraline to 100mg daily-f/u 1 month Pain in left arm 8594970 00 M79.602 -Chronic, uncontroll ed-Recomme nded PT [id number] MD Georgiana Douglas [facility] ([address]) [address] [place] [address] 02/28/2021 10:15:43 02/28/2021 18:32:36 Diabetes mellitus 26709615 E11.9 Hypertensive disorder 38 004286 I10 -Chronic, improved on recheck-Co ntinue to monitor Administra tion of influenza vaccine 63598982 Z23 Tenosynovi tis of thumb 872023737 M65.849 -Thumb stuck in extension [id number] MD Georgiana Douglas FP ( [address]) [address] [place] [address] 06/03/2021 14:52:29 06/04/2021 09:51:55 Diabetes mellitus 92638280 E11.9 Last A1C:less than 7.0%Goal A1C less than:7.0%C urrent Therapy:me tformin sulfonylur ea long-actin g insulin GLP-1 RAStatin:d eclinedACE /ARB:noFoo t Exam:compl eted in the past 12 months-pos itiveNephr opathy Screening: duePneumofouzia ax 23:UTDEye Exam:due- recommende d annual dilated eye examMuch improved A1c on GLP-1 and consistent w/ insulinPla n to wean off sulfonylur ea if DM controlled next check, call if any hypoglycem ia Next Visit: 3 month(s) Depressive disorder 4654 8026 F32.9 -Chronic, better-Con tinue sertraline to 100mg daily-f/u 3 months Morbid obesity 288012801 E66.01 [id number] MD Georgiana Douglas [facility] ( [address]) [address] [place] [address] 08/25/2021 14:50:11 09/01/2021 15:02:28 Diabetes mellitus 50187704 E11.9 Last A1C:7-8%Go al A1C less than:7.0%C urrent Therapy:me tformin sulfonylur ea long-actin g insulin GLP-1 RAStatin:d eclinedACE /ARB:noFoo t Exam:compl eted in the past 12 months-pos itiveNephr opathy Screening: completed in the past 12 months- negativePn eumovax 23:UTDEye Exam:due- recommende d annual dilated eye examMuch improved A1c on GLP-1 and consistent w/ insulinPla n to wean off sulfonylur ea if DM controlled next check, call if any hypoglycem iaIncrease to 40 units insulin qAM Next Visit: 3 month(s) Pain of le ft shoulder joint 0432376698 1585620 M25.512 -Acute, worse over the past 2-3 months-Martha pect rotator cuff tear s/p fall-Has insurance now, Ortho referral-X R done at [facility] MRI-f/u with Ortho Morbid obesity 682143976 E66.01 [id number] MD Georgiana Douglas [facility] ([address]) [address] [place] [address] 06/01/2022 15:49:06 06/03/2022 11:12:56 Diabetes mellitus 70918827 E11.9 Last A1C:8.8%Go al A1C less than:7.0%C urrent Therapy:GL P-1 RA long-actin g insulin sulfonylur ea metforminS tatin:noAC E/ARB:noFo ot Exam:compl eted in the past 12 months-pos itiveNephr opathy Screening: duePneumov ax 23:UTDEye Exam:due- recommende d annual dilated eye exam -Isacc murray discussed, she has been doing well this past week and hopes to take meds as prescribed this year as a resolution Next Visit: 3 month(s) Headache 51956375 R51.9 -Chronic, stable-Com pazine prn Depressive disorder 3548 9007 F32.9 -Chronic, stable-PHQ reviewed-C ontinue sertraline to 100mg daily-f/u 3 months Morbid obesity 698804162 E66.01 [id number] MD Arnie Douglas ([address]) [address] [place] [address] 09/01/2022 09:43:02 09/02/2022 12:20:49 Diabetes mellitus 64616305 E11.9 Last A1C:5.8%Go al A1C less than:7.0%C urrent Therapy:GL P-1 RA long-actin g insulin sulfonylur ea metforminS tatin:yesA CE/ARB:noF oot Exam:compl eted in the past 12 months-pos itiveNephr opathy Screening: completed in the past 12 months- negativePn eumovax 23:UTDEye Exam:compl eted per patient report -Increase Victoza to 1.8 daily-Decr ease glipizide to 10mg qAM due to risk of hypoglycem ia Next Visit: 3 month(s) Morbid obesity 640811670 E66.01 Snoring 18343307 R06.83 -Daytime fatigue, night snoring, waking with headaches- Sleep eval for ALISON [id number] MD Arnie Douglas ([address]) [address] [place] [address] 06/15/2023 14:10:45 06/16/2023 14:34:03 Diabetes mellitus 42262348 E11.9 Last A1C: 6.6%Goal A1C less than: 7.0%Curren t Therapy: GLP-1, long-actin g insulin, sulfonylur ea, metforminS tatin: yesACE/ARB : noFoot Exam: completed in the past 12 months-neg ativeNephr opathy Screening: completed in the past 12 months- dueEye Exam: completed per patient reportf/u 6 months Chronic low back pain 27 2050749 M54.50 -Chronic, stable Morbid obesity 858265113 E66.01 -Losing weight on GLP-1 [id number] MD Georgiana Douglas [facility] ([address]) [address] [place] [address] 12/14/2023 11:51:25 12/15/2023 12:45:40 Diabetes mellitus 19469566 E11.9 Last A1C: 6.8%Goal A1C less than: 7.0%Curren t Therapy: GLP-1, long-actin g insulin, sulfonylur ea, metforminS tatin: yesACE/ARB : noFoot Exam: completed in the past 12 months-neg ativeNephr opathy Screening: completed in the past 12 monthsEye Exam: completed per patient report7 pound weight loss with GLP-1 Cervical radiculopathy 93416289 M54.12 -Subacute, uncontroll ed C6 radiculopa thy-PT-If no improvemen t with PT, consider cervical spine MRI Depressive disorder 6031 4627 F32.9 -Chronic, uncontroll ed-Change to Prazac-wea n doen to 50mg of sertraline X 1 week and then start 10mg Prozac X 1 week and then 2 caps daily-f/u 6 weeks (scheduled Morbid obesity 180341932 E66.01 -Losing weight on GLP-1 [id number] MD Georgiana Douglas [facility] ([address]) [address] [place] [address] 02/01/2024 10:43:51 02/02/2024 14:29:08 Diabetes mellitus 07909601 E11.9 Last A1C: 6.8%Goal A1C less than: 7.0%Curren t Therapy: GLP-1, long-actin g insulin, sulfonylur ea, metforminS tatin: yesACE/ARB : noFoot Exam: completed in the past 12 months-neg ativeNephr opathy Screening: completed in the past 12 monthsEye Exam: completed per patient reportLab due and orderedf/u 3 months Administra tion of influenza vaccine 47657912 Z23 Depressive disorder 8930 2136 F32.9 -Chronic, controlled -Continue fluoxetine 20mg daily Morbid obesity 462103770 E66.01 -Losing weight on GLP-1 [id number] MD Georgiana Douglas e FP ([address]) [address] [place] [address] 03/24/2024 11:04:54 03/27/2024 09:21:55 Immunization due 125214824 Z28.39 Cervical radiculopathy 98781240 M54.12 -Acute, uncontroll ed C6 radiculopa thy severe-Sta rted PT and has had several sessions, but it is so painful that she cannot fully participat e-C-spine MRI to evaluate for spinal injections +/- surgery-Me drol dose-jong helped, do steroid taper-Cont inue Elavil qhs-Decrea se cyclobenza richard dose to 5mg to reduce sedation-f /u after MRI Diabetes mellitus 152059 09 E11.9 Last A1C: 10.6%, previously controlled Goal A1C less than: 7.0%Curren t Therapy: GLP-1, long-actin g insulin, sulfonylur ea, metforminS tatin: yesACE/ARB : noFoot Exam: completed in the past 12 months-neg ativeNephr opathy Screening: completed in the past 12 monthsEye Exam: completed per patient reportRest art insulinf/u 3 months [id number] Irina Ross MD [facility] ([address]) [address] [place] [address] 06/27/2024 13:44:56 06/28/2024 14:42:10 Diabetes mellitus 41875678 E11.9 Last A1C: 9.9%Goal A1C less than: 7.0%Curren t Therapy: GLP-1, long-actin g insulin, sulfonylur ea, metforminS tatin: yesACE/ARB : noFoot Exam: completed in the past 12 months-pos itiveNephr opathy Screening: completed in the past 12 months, negativeEy e Exam: completed per patient reportIncr ease insulin to 45f/u 3 months Cervical radiculopathy 19096213 M54.12 -Acute, stable C6/7 radiculopa thy-Starte d PT and had several sessions, but it is so painful that she cannot fully participat e-C-spine MRI declined by insurance- Neurology referral Migraine 04911508 G43.90 9 -Chronic, uncontroll ed-Stop Elavil, no longer helping-St art topiramate -Risks, benefits, alternativ es, and common side effects reviewed-f /u 3 months Morbid obesity 497179136 E66.01 -Losing weight on GLP-1-Star ting topiramate Health Concerns Section Related Observation LastModified by Organization Detai ls LastModified Time None Recorded Concern Status LastModified by Organization Details LastModified Time None Recorded Advance Directives Directive None Recorded Payers Insurance Date Sequence Insurance Name Policy Number Policy Novoa Covered Member ID Novoa Member ID Guarantor Name 08/17/2024 1 [employer] IAIC Sunita Ivan [id number] Sunita Ivan 08/17/2024 1 [employer] - MULTIPLAN (INDEMNITY) Sunita Ivan [id number] Sunita Ivan 08/17/2024 2 ALLIED NATIONAL Sunita Ivan [id number] Sunita Ivan 08/17/2024 2 [employer] - ACTIVA BENEFITS [facility] (O) Sunita Ivan [id number] Sunita Ivan 08/17/2024 2 ALLIED NATIONAL Sunita Ivan [id number] Sunita Ivan 02/28/2021 1 *SELF PAY* Ca george Ivan 02/28/2021 SLIDING FEE SCHEDULE - DISCOUNT Sunita Ivan 09/26/2024 1 [facility] (MEDICAID HMO) [id number] Sunita Ivan [id number] Sunita Ivan 07/02/2017 SLIDING FEE SCHEDULE - DISCOUNT Sunita Ivan 07/02/2017 SLIDING FEE SCHEDULE - DISCOUNT Sunita Ivan 08/17/2024 1 [facility] (PPO) [id number] Sunita Ivan [id number] Sunita Ivan 08/27/2021 1 *SELF PAY* Ca george Ivan 06/01/2022 SLIDING FEE SCHEDULE - DISCOUNT Sunita Ivan 08/17/2024 1 [facility] [employer] - STANDARD [employer]URITY LIFE - [employer] (INDEMNITY) Sunita Ivan [id number] Sunita Ivan Notes Date Note Type Note Provider Name and Address Organization Details Recorded Time 06/15/2023 text/html Sunita is here t o f/u her diabetes. She has been consistent with taking medications. She has bilateral foot neuropathy. Her mood is improved on sertraline and she feels the current dose is working. She has chronic, stable low back pain. She has lost 9 pounds since her last visit. Irina Ross MD Attn: [address] [place], [address], [facility] 06/15/2023 20:35:04 12/14/2023 text/html Sunita is here t o f/u her diabetes. [...] moderate. Irina Ross MD Attn: [address] [place], [address], [facility] 12/14/2023 13:58:21 02/01/2024 text/html Sunita is here t o f/u her mood since a switch to Prozac. She is doing well on her current dose and feels better- less down, interested in activities more, sleep and appetite better. Carol Ann Hickey MA [facility], [facility] 02/01/2024 11:44:15 03/24/2024 text/html Sunita is here t o f/u her diabetes [...] days. Irina Ross MD Attn: [address]ing[address] [facility], [place], [address], [facility] 03/24/2024 12:52:03 06/27/2024 text/html Sunita is here t o f/u her diabetes [...] overall. Irina Ross MD Attn: [address] [place], [address], [facility] 06/28/2024 10:06:01 OBGyn Episode No OBEpisode recorded.
--- OUTSIDE RECORDS SUMMARY | 2024-11-22 23:41 | XMS_ITS | Referral Summary ---
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
--- OUTSIDE RECORDS SUMMARY | 2024-11-22 23:41 | XMS_ITS | Clinical Summary ---
Author Organization [facility] Address [address] [place] [address] Care Team Providers Care Test Driver Name Role Phone Jennifer Ross MD Primary Care Provider [phone] Allergies Active Allergy Reactions Criticality Noted Date [...] Date Trigger thumb of right hand 03/25/2021 Family History Medical History Relation Comments Cancer [...] 5 Years 02/08/2010 Cervical Cancer Screening wi th HPV 02/08/2010 Mammogram Screening 2020 COVID-19 Vaccine ( - 2023-2 5 season) 2024 08/04/2022, 05/12/2021, 09/19/2020 DTaP, [...] complete this topic Insurance [employer] Care Teams Test Driver Relationship Specialty Start Date End Date Jennifer Ross MD [address] [facility] [address] [place] [address] PCP - General 10/14/15
[2024-11-22 23:53] VITALS: BP 135/74; PULSE 84; RESP 18; TEMP 36.6; O2SAT 99
--- OUTSIDE RECORDS SUMMARY | 2024-11-23 00:14 | XMS_ITS | Clinical Summary ---
Author Organization [facility] Address [address] [place] [address] Care Team Providers Care Heating Unit Installer Name Role Phone Jennifer Ross MD Primary Care Provider [phone] Allergies Active Allergy Reactions Criticality Noted Date [...] complete this topic Insurance [employer] Care Teams Heating Unit Installer Relationship Specialty Start Date End Date Jennifer Ross MD [address] [facility] [address] [place] [address] PCP - General 10/14/15
--- OUTSIDE RECORDS SUMMARY | 2024-11-23 00:14 | XMS_ITS | Clinical Summary ---
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
--- OUTSIDE RECORDS SUMMARY | 2024-11-23 00:14 | XMS_ITS | Referral Summary ---
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
--- OUTSIDE RECORDS SUMMARY | 2024-11-23 00:14 | XMS_ITS | Continuity of Care Document ---
Author Organization [facility] Address [address] [place] [address] Phone Care Team Providers Care Wind Science And Planning Name Role Phone Jess PT, DYLONT, Gali Unavailable Unavailable Procedures Procedure Date PT Evaluation Low Complexity Therapeutic Activities Therapeutic Exercise Electrical Stimulation Neuromuscular Re-Ed Advance Directives Directive Yes / No Effective Date File Name No Information Encounters Encounter Description Practice Location Reason(s) For Visit Diagnoses Date Provider Providers Copied on Encounter [facility], [address], [place], [place], [id number], tel:[phone] [facility] No Information 1 Jess Gali. . [facility], [address], [place], [place], [id number], tel:[phone] [facility] No Information 1 Jess Gali. . Family History Family Member Type Diagnosis Age At Onset No Information Payers Payer name Insurance type Covered libertarian ID Authoriza tion(s) Self Pay - GFE [...]
--- NOTE | 2024-11-23 01:00 | ED.WOUNDLAC ---
HPI - Wound/Laceration General Chief Complaint: Wound/Laceration Stated Complaint: finger laceration Time Seen by Provider: 11/22/24 23:47 Source: patient Mode of arrival: ambulatory Limitations: no limitations History of Present Illness HPI narrative: This is a 44-year-old female that presents to the emergency department for laceration to the left 2nd finger. Sustained earlier tonight trying to cut butter. Reports skin avulsion, she has been having difficulty controlling the bleeding. She is not up-to-date on tetanus. Related Data Home Medications ?Medication ?Instructions ?Recorded ?Confirmed ?Last Taken ?Type amitriptyline 50 mg tablet 08/01/21 Unknown History cyclobenzaprine 10 mg tablet mg 08/01/21 Unknown History glipizide 10 mg tablet mg 08/01/21 Unknown History hydrochlorothiazide 25 mg tablet 08/01/21 08/01/21 Unknown History ibuprofen 800 mg tablet 08/01/21 Unknown History meloxicam 7.5 mg tablet 08/01/21 Unknown History metformin 1,000 mg tablet mg 08/01/21 Unknown History sertraline 100 mg tablet mg 08/01/21 Unknown History atorvastatin 10 mg tablet 10 mg PO DAILY 05/10/23 Unknown History insulin detemir U-100 100 unit/mL 40 unit subcut QHS 05/10/23 Unknown History (3 mL) subcutaneous pen (Levemir FlexPen) liraglutide 0.6 mg/0.1 mL (18 mg/3 1.8 mg subcut DAILY 05/10/23 Unknown History mL) subcutaneous pen injector (Victoza 2-Jong) Allergies Allergy/AdvReac Type Severity Reaction Status Date / Time No Known Allergies Allergy Unknown Verified 09/14/24 17:02 Review of Systems Review of Systems: All systems reviewed & are unremarkable except as noted in HPI and below PMFSH Past Medical History Medical History Anxiety Depression Diabetes Arthritis Ectopic Surgical History Surgical History History of tubal ligation Family History Family History Mother Atrial fibrillation Father Acute myocardial infarction Social History Social History Smoking status: Never smoker Exam Narrative: GENERAL: Well-appearing, well-nourished, and in no acute distress. HEAD: Normocephalic, atraumatic. EYES: EOMI. EXTREMITIES: Normal range of motion. No edema. Small skin avulsion to the left 2nd finger distal phalanx, bleeding controlled SKIN: Warm, dry, no rash. NEURO: No focal deficits. Alert and oriented x3. PSYCH: Normal mood and affect Course Vital Signs Vital signs: Vital Signs Temperature 97.8 F 11/22/24 23:53 Pulse Rate 84 11/22/24 23:53 Respiratory Rate 18 11/22/24 23:53 Blood Pressure 135/74 11/22/24 23:53 Pulse Oximetry 99 11/22/24 23:53 Oxygen Delivery Autopap 11/22/24 23:53 Temperature 97.8 F 11/22/24 23:53 Pulse Rate 84 11/22/24 23:53 Respiratory Rate 18 11/22/24 23:53 Blood Pressure 135/74 11/22/24 23:53 Pulse Oximetry 99 11/22/24 23:53 Oxygen Delivery Autopap 11/22/24 23:53 Procedures Laceration Laceration 1: Date: 11/23/24 Time: 01:06 Site: hand Side (If applicable): left Size (cm): 1 Description: other (avulsion) Pre-repair: irrigated ====== Skin Level ====== ====== Subcutaneous Layer ====== ====== Muscle Layer ====== ====== Tendon Layer ====== Dressing: Bandaged with antibiotic ointment, Telfa, Kerlix, Coban MDM - Wound/Laceration MDM Narrative Medical decision making narrative: Patient presents the emergency department for a small skin avulsion. Bleeding controlled. Antibiotic ointment and bandage applied. Patient updated on tetanus vaccination. Educated on further wound care. Given warnings to return to the ER Differential Diagnosis Differential diagnosis: Likely laceration, abrasion and avulsion of skin Critical Care Time Critical Care Time Critical Care Time: No Discharge Plan Discharge Clinical Impression: Avulsion of skin Patient Disposition: Home Condition: Stable Instructions: Skin Avulsion (ED) Additional Instructions: Return to the emergency department if you experience fever, redness or swelling of your wound, abnormal drainage from your wound, or any other symptoms that are concerning to you. Apply antibiotic ointment daily. Do not soak the wound. Clean with mild soap and water daily Follow-up with your primary care doctor for wound check Patient Language: Malay Prescriptions: No Action atorvastatin 10 mg tablet 10 mg PO DAILY Victoza 2-Jong 0.6 mg/0.1 mL (18 mg/3 mL) pen injector 1.8 mg subcut DAILY Levemir FlexPen 100 unit/mL (3 mL) insulin pen 40 unit subcut QHS cefpodoxime 200 mg tablet 400 mg PO Q12H 7 Days Qty: 28 0RF Rx Instructions: must administer with a meal/food diclofenac sodium 75 mg tablet,delayed release (DR/EC) 75 mg PO BID PRN (Reason: pain) Qty: 20 0RF cyclobenzaprine 10 mg tablet 10 mg PO TID PRN (Reason: muscle spasm) Qty: 20 0RF famotidine [Pepcid] 20 mg tablet 20 mg PO BID Qty: 30 0RF glipizide 10 mg tablet amitriptyline 50 mg tablet meloxicam 7.5 mg tablet metformin 1,000 mg tablet cyclobenzaprine 10 mg tablet ibuprofen 800 mg tablet sertraline 100 mg tablet hydrochlorothiazide 25 mg tablet prednisone 20 mg tablet 40 mg PO DAILY 5 Days Qty: 10 0RF naproxen 500 mg tablet 500 mg PO BID Qty: 10 0RF omeprazole 40 mg capsule,delayed release(DR/EC) 40 mg PO DAILY Qty: 30 0RF hydrocodone-acetaminophen 5-325 mg tablet 1 tablet PO Q12H PRN (Reason: pain) Qty: 14 0RF cyclobenzaprine 10 mg tablet 10 mg PO BID PRN (Reason: muscle spasm) Qty: 14 0RF methylprednisolone [Medrol (Jong)] 4 mg tablets,dose pack See Rx Instructions PO .COMPLEX Qty: 21 0RF Rx Instructions: orally per package directions cyclobenzaprine 10 mg tablet 10 mg PO TID PRN (Reason: muscle spasm) Qty: 14 0RF lidocaine 5 % adhesive patch,medicated 1 patch topical DAILY Qty: 15 0RF Rx Instructions: leave on most painful area for up to 12 hrs. do not use more than 1 patch in a 24-hour period. Follow-up/Referrals: Ross,Jennifer N., MD [Primary Care Provider] -
[2024-11-23] MEDS: TETANUS,DIPHTHERIA,AC PERTUSSIS ADULT (0.5 ML) BOOSTRIX IM (01:23)
[2024-11-23 01:28] VITALS: BP 109/65; PULSE 79; RESP 18; O2SAT 99
== END 2024-11-23 01:29 | disposition home or self-care (01) ==
PROVIDERS: Emergency Provider Physician Assistant; PCP Family Medicine
DX: S61.211A Laceration without foreign body of left index finger without damage to nail, initial encounter (principal); W26.0XXA Contact with knife, initial encounter; Z23 Encounter for immunization
CPT/HCPCS: 90471; 90715; 99282

== ENCOUNTER 2025-01-18 16:01 | Emergency (ER) | payer OTHER, SELFPAY ==
--- NOTE | ~2025-01-18 | XR_ITS ---
EXAMINATION: XR chest 2V 01/18/2025 16:31 INDICATION: Chest pain. TECHNIQUE:Frontal and lateral images of the chest were obtained. COMPARISON: 11/22/2023 FINDINGS: The lungs are clear. The cardiomediastinal silhouette is within normal limits. There are no pleural effusions. There is no pneumothorax suspected. IMPRESSION: 1: NO ACUTE CARDIOPULMONARY DISEASE. Reviewed, dictated and finalized at location Q.
--- NOTE | 2025-01-18 16:03 | ECG_ITS ---
Test Date: 2025-01-18 16:09:18 Measurements Intervals [place] Rate: 118 P: 70 MN: 147 QRS: 63 QRSD: 98 T: 48 QT: 328 QTc: 460 Interpretive Statements SINUS TACHYCARDIA BASELINE ARTIFACT- I, II, III, AVR, AVL, AVF, V2-V6 ABNORMAL ECG Compared to ECG 05/10/2024 14:37:21 HEART RATE HAS INCREASED Electronically Signed On 01-18-2025 16:12:57 CDT by Bo Hernandez D.O.
--- OUTSIDE RECORDS SUMMARY | 2025-01-18 16:03 | XMS_ITS | Clinical Summary ---
Author Organization [facility] Address [address] [place] [address] Care Team Providers Care Assembler Body Name Role Phone Jennifer Ross MD Primary Care Provider [phone] Allergies Active Allergy Reactions Criticality Noted Date [...] of 3 - 19+ 3-dose series) 02/08/1999 HPV Vaccines (1 - 3-dose SCD M series) 02/08/2007 Cervical Cancer Screening Pa p with HPV [...] complete this topic Insurance [employer] Care Teams Assembler Body Relationship Specialty Start Date End Date Jennifer Ross MD [address] [facility] [address] [place], [place] [address] PCP - General 10/14/15
--- OUTSIDE RECORDS SUMMARY | 2025-01-18 16:03 | XMS_ITS | Clinical Summary ---
Author Organization [facility] Address [address] [place] [id number] Care Team Providers Care Web Site Project Manager Name Role Phone Jennifer Ross MD Primary Care Provider [phone] Allergies Active Allergy Reactions Criticality Noted Date [...] (02/26/2022): Added automatically from request for surgery [id number] Traumatic incomplete tear of left rotator cuff [...] on file Legal Sex Female 8:32 PM [employer] INS[employer] Gender Identity Not on file Sexual [...] Screening 02/08/1998 Regular Well Visit/Exam 18-64 02/08/1998 HPV Vaccines (1 - 3-dose SCD M series) 02/08/2007 Pneumococcal vaccine <65 (2 of 2 - PCV) 10/13/2016 10/14/2015 Covid-19 Vaccine (3 - 2023-2 5 season) 2024 05/12/2021, 09/19/2020 Influenza Vaccine (#1) 2025 , 04/30/2020, 07/02/2017, Additional history exists DTaP/Tdap/Td Vaccine (2 - Td or Tdap) 10/13/2025 10/14/2015 Insurance [facility] Care Teams Web Site Project Manager Relationship Specialty Start Date End Date Jennifer Ross MD PCP - General Child Protective Services Specialist 06/06/21
[2025-01-18 16:06] VITALS: BP 149/76; PULSE 118; RESP 20; TEMP 36.6; O2SAT 100
[2025-01-18 16:15] VITALS: O2SAT 100
[2025-01-18 16:22] LABS: Hematocrit 37.0 % (37.0-47.0); Hemoglobin 12.0 g/dL (12.0-15.0); Immature Granulocyte Percent A 0.4 % (0-0.5); Lymphocytes Absolute Auto 2.41 K/mm3 (0.9-3.2); Mean Corpuscular HGB Conc 32.4 g/dl (32-36); Mean Corpuscular Hemoglobin 27.1 pg (26-34); Mean Corpuscular Volume 83.7 fl (80-100); Nucleated Red Blood Cells Absolute Auto 0.000 K/mm3 (0.0-0.012); Nucleated Red Blood Cells Perc 0.0 % (0.0-0.2); Platelet Count Result 329 k/mm3 (150-375); Red Blood Count 4.42 M/mm3 (4.2-5.4); White Blood Count 9.6 K/mm3 (4.5-10.0)
[2025-01-18 16:35] LABS: INR 0.9; Partial Thromboplastin Time 25.3 Seconds (22.3-36.8); Prothrombin Time 12.6 Seconds (11.1-14.7)
[2025-01-18 16:42] LABS: Alanine Aminotransferase 26 U/L (6-35); Albumin Level 4.6 g/dL (3.5-5.1); Alkaline Phosphatase 71 U/L (38-126); Anion Gap 12 mmol/L (4-12); Aspartate Amino Transferase 32 U/L (14-36); Bilirubin,Total 0.5 mg/dL (0.2-1.3); Blood Urea Nitrogen 30 mg/dL (7-17); Calcium 9.7 mg/dL (8.4-10.2); Carbon Dioxide 25 mmol/L (22-30); Chloride 102 mmol/L (98-107); Estimated CRCL calculation 73 ml/min; Estimated Glomerular Filt Rate 51; Glucose 142 mg/dL (65-110); Lipase 114 U/L (23-300); Potassium 3.6 mmol/L (3.4-5.0); Sodium 139 mmol/L (137-145); Total Protein 8.2 g/dL (6.3-8.2)
[2025-01-18] MEDS: KETOROLAC 30 MG/ML VIAL (*BKC) IV PUSH (16:49)
[2025-01-18 16:54] LABS: Troponin I < 0.012 ng/mL (0.000-0.034)
[2025-01-18 18:23] VITALS: BP 149/76; PULSE 88; RESP 16; O2SAT 100
[2025-01-18 19:13] VITALS: BP 106/68; PULSE 90; RESP 15; O2SAT 100
--- NOTE | 2025-01-18 19:22 | ECG_ITS ---
Test Date: 2025-01-18 19:24:58 Measurements Intervals [place] Rate: 84 P: 61 NV: 156 QRS: 48 QRSD: 97 T: 57 QT: 358 QTc: 423 Interpretive Statements SINUS RHYTHM BASELINE ARTIFACT- I, II, III, AVR, AVL, AVF, V1-V6 NORMAL ECG Compared to ECG 01/18/2025 16:09:18 HEART RATE HAS DECREASED Electronically Signed On 01-18-2025 20:25:08 CDT by Bo Hernandez D.O.
--- NOTE | 2025-01-18 19:27 | PC.NURSE ---
pt blood suagr is 50. pt given apple juice and crackers. EDP made aware
[2025-01-18 19:42] LABS: Troponin I < 0.012 ng/mL (0.000-0.034)
--- NOTE | 2025-01-18 19:49 | PC.NURSE ---
pt drank apple juice and ate crackers. pt sugar is now 74.
--- NOTE | 2025-01-18 20:06 | ED_ITS ---
HPI - Chest Pain General Chief Complaint: Chest Pain Stated Complaint: cp Time Seen by Provider: 01/18/25 16:09 Source: patient Mode of arrival: ambulatory Limitations: no limitations History of Present Illness HPI narrative: 44-year-old with a history of hypertension, hyperlipidemia, diabetes here with a complains of left-sided chest pain with started few hours ago while she was sitting on her porch. She denies any shortness of breath. Increasing pain with movement. MD complaint: chest pain Onset (ago): hour(s) (1) Timing of current episode: constant Pain location: left chest Pain radiation: none Quality: aching Relieving factors: nothing Exacerbating factors: nothing Treatment prior to arrival: none Related Data Home Medications ?Medication ?Instructions ?Recorded ?Confirmed ?Last Taken ?Type amitriptyline 50 mg tablet 08/01/21 Unknown History cyclobenzaprine 10 mg tablet mg 08/01/21 Unknown Hist ory glipizide 10 mg tablet mg 08/01/21 Unknown History hydrochlorothiazide 25 mg tablet 08/01/21 08/01/21 Un known History ibuprofen 800 mg tablet 08/01/21 Unknown History meloxicam 7.5 mg tablet 08/01/21 Unknown History metformin 1,000 mg tablet mg 08/01/21 Unknown History sertraline 100 mg tablet mg 08/01/21 Unknown History atorvastatin 10 mg tablet 10 mg PO DAILY 05/10/23 Unk nown History insulin detemir U-100 100 unit/mL 40 unit subcut QHS 1 07/11/22 Unknown History (3 mL) subcutaneous pen (Levemir FlexPen) liraglutide 0.6 mg/0.1 mL (18 mg/3 1.8 mg subcut DAILY 05/10/23 Unknown History mL) subcutaneous pen injector (Victoza 2-Jong) Allergies Allergy/AdvReac Type Severity Reaction Status Date / Time No Known Allergies Allergy Unknown Verified 09/14/24 17:02 Review of Systems 2 Review of Systems: All systems reviewed & are unremarkable except as noted in HPI and below Constitutional: Constitutional: Reports no additional constitutional complaints Eyes: Eyes: Reports no additional eye complaints ENT: Reports system reviewed and no additional complaints, except as documented Cardiovascular: Cardiovascular: Reports as per HPI Respiratory: Respiratory: Reports no additional respiratory complaints Gastrointestinal: Gastrointestinal: Reports no additional gastrointestinal complaints Genitourinary: Genitourinary: Reports no additional female genitourinary complaints Musculoskeletal: Musculoskeletal: Reports no additional musculoskeletal complaints Neurologic: Reports system reviewed and no additional complaints, except as documented Psychiatric: Psychiatric: Reports no additional psychiatric complaints Endocrine: Endocrine: Reports no additional endocrine complaints Hematologic/Lymphatic: Hematologic/Lymphatic: Reports no additional hematologic/lymphatic complaints PMFSH Past Medical History Medical History Anxiety Depression Diabetes Arthritis Ectopic Surgical History Surgical History History of tubal ligation Family History Family History Mother Atrial fibrillation Father Acute myocardial infarction Social History Social History Smoking status: Never smoker Exam 2 Narrative: GENERAL: Well-appearing, well-nourished, and in no acute distress. HEAD: Normocephalic, atraumatic. EYES: PERRLA and EOMI. ENT: Nares clear, no rhinorrhea or epistaxis. Mucous membranes moist. NECK: Supple. CHEST: Clear to auscultation. No respiratory distress. Tenderness on palpation on the left parasternal area. HEART: Regular rate and rhythm. No murmur heard. Normal peripheral pulses. ABDOMEN: Soft, nontender, nondistended, normal active bowel sounds. EXTREMITIES: Normal range of motion. No edema. SKIN: Warm, dry, no rash. NEURO: No focal deficits. Alert and oriented x3. PSYCH: Normal mood and affect. Course Course Emergency Course: Patient comfortably resting on the bed in no discomfort. Her pain is much resolved after IV Toradol. I did inform her about the lab work, EKG and the chest x-ray findings. She does feel comfortable going home. Vital Signs Vital signs: Vital Signs Temperature 36.6 C 01/18/25 16:06 Pulse Rate 118 H 01/18/25 16:06 Respiratory Rate 20 01/18/25 16:06 Blood Pressure 149/76 H 01/18/25 16:06 Pulse Oximetry 100 01/18/25 16:06 Oxygen Delivery Room Air 01/18/25 16:06 Temperature 36.6 C 01/18/25 16:06 Pulse Rate 90 01/18/25 19:13 Respiratory Rate 15 01/18/25 19:13 Blood Pressure 106/68 01/18/25 19:13 Pulse Oximetry 100 01/18/25 19:13 Oxygen Delivery Room Air 01/18/25 16:15 MDM - Chest Pain MDM Narrative Medical decision making narrative: 44-year-old with sudden onset of left-sided chest pain which is reproducible however with the given history of hypertension diabetes will do cardiac workup. Differential Diagnosis Differential diagnosis: Likely unstable angina pectoris, atypical chest pain, costochondritis and chest pain Medical Records Data Attestation: I reviewed the patient's medical records. Lab Data Attestation: I reviewed the patient's lab results. 01/18/25 16:14 01/18/25 16:14 Labs: Lab Results 01/18/25 01/18/25 01/18/25 Range/Units 16:14 19:15 19:23 WBC 9.6 (4.5-10.0) K/mm3 RBC 4.42 (4.2-5.4) M/mm3 Hgb 12.0 (12.0-15.0) g/dL Hct 37.0 (37.0-47.0) % MCV 83.7 (80-100) fl MCH 27.1 (26-34) pg MCHC 32.4 (32-36) g/dl RDW 13.9 (11.5-14.5) % Plt Count 329 (150-375) k/mm3 MPV 10.0 (7.4-10.4) fl Immature Gran % (Auto) 0.4 (0-0.5) % Neut % (Auto) 68.7 (45.5-73.1) % Lymph % (Auto) 25.0 (18.3-44.2) % Caroline % (Auto) 4.3 (2.6-8.5) % Eos % (Auto) 1.1 (0-4.4) % Baso % (Auto) 0.5 (0.2-1.2) % Lymph # (Auto) 2.41 (0.9-3.2) K/mm3 Caroline # (Auto) 0.4 (0.1-0.6) K/mm3 Eos # (Auto) 0.1 (0-0.3) K/mm3 Baso # (Auto) 0.1 (0.0-0.1) K/mm3 Abs Immat Gran (auto) 0.04 H (0.00-0.031) K/mm3 Absolute Neuts (auto) 6.6 (1.3-6.7) K/mm3 Absolute Nucleated RBC 0.000 (0.0-0.012) K/mm3 Nucleated RBC % 0.0 (0.0-0.2) % PT 12.6 (11.1-14.7) Seconds INR 0.9 APTT 25.3 (22.3-36.8) Seconds Sodium 139 (137-145) mmol/L Potassium 3.6 (3.4-5.0) mmol/L Chloride 102 (98-107) mmol/L Carbon Dioxide 25 (22-30) mmol/L Anion Gap 12 (4-12) mmol/L BUN 30 H D (7-17) mg/dL Creatinine 1.15 H (0.7-1.0) mg/dL Estim Creat Clear Calc 73 ml/min Estimated GFR 51 L (59 - ) Glucose 142 H (65-110) mg/dL POC Capillary Glucose 50 L* (65-105) mg/dl Calcium 9.7 (8.4-10.2) mg/dL Total Bilirubin 0.5 (0.2-1.3) mg/dL AST 32 (14-36) U/L ALT 26 (6-35) U/L Alkaline Phosphatase 71 (38-126) U/L Troponin I < 0.012 < 0.012 (0.000-0.034) ng/mL Total Protein 8.2 (6.3-8.2) g/dL Albumin 4.6 (3.5-5.1) g/dL Lipase 114 (23-300) U/L 01/18/25 Range/Units 19:48 WBC (4.5-10.0) K/mm3 RBC (4.2-5.4) M/mm3 Hgb (12.0-15.0) g/dL Hct (37.0-47.0) % MCV (80-100) fl MCH (26-34) pg MCHC (32-36) g/dl RDW (11.5-14.5) % Plt Count (150-375) k/mm3 MPV (7.4-10.4) fl Immature Gran % (Auto) (0-0.5) % Neut % (Auto) (45.5-73.1) % Lymph % (Auto) (18.3-44.2) % Caroline % (Auto) (2.6-8.5) % Eos % (Auto) (0-4.4) % Baso % (Auto) (0.2-1.2) % Lymph # (Auto) (0.9-3.2) K/mm3 Caroline # (Auto) (0.1-0.6) K/mm3 Eos # (Auto) (0-0.3) K/mm3 Baso # (Auto) (0.0-0.1) K/mm3 Abs Immat Gran (auto) (0.00-0.031) K/mm3 Absolute Neuts (auto) (1.3-6.7) K/mm3 Absolute Nucleated RBC (0.0-0.012) K/mm3 Nucleated RBC % (0.0-0.2) % PT (11.1-14.7) Seconds INR APTT (22.3-36.8) Seconds Sodium (137-145) mmol/L Potassium (3.4-5.0) mmol/L Chloride (98-107) mmol/L Carbon Dioxide (22-30) mmol/L Anion Gap (4-12) mmol/L BUN (7-17) mg/dL Creatinine (0.7-1.0) mg/dL Estim Creat Clear Calc ml/min Estimated GFR (59 - ) Glucose (65-110) mg/dL POC Capillary Glucose 74 (65-105) mg/dl Calcium (8.4-10.2) mg/dL Total Bilirubin (0.2-1.3) mg/dL AST (14-36) U/L ALT (6-35) U/L Alkaline Phosphatase (38-126) U/L Troponin I (0.000-0.034) ng/mL Total Protein (6.3-8.2) g/dL Albumin (3.5-5.1) g/dL Lipase (23-300) U/L Imaging Data Radiologist's impression: ITS Impressions Chest X-Ray 01/18/25 16:33 IMPRESSION: 1: NO ACUTE CARDIOPULMONARY DISEASE. ECG Data EKG #1: ECG completion date: 01/18/25 ECG completion time: 16:09 EKG Interpretation: tachycardia (118), no ectopy, no ST changes and normal QRS EKG #2: ECG completion date: 01/18/25 ECG completion time: 19:24 EKG Interpretation: normal rate (84), sinus rhythm, no ectopy, no ST changes, normal QRS and normal QT Discharge Plan Discharge Clinical Impression: Chest pain Qualifiers: Chest pain type: unspecified Qualified Code(s): R07.9 - Chest pain, unspecified Patient Disposition: Home Condition: Stable Instructions: Chest Wall Pain (ED) Additional Instructions: continue home medications follow with your doctor Patient Language: Russian Prescriptions: No Action atorvastatin 10 mg tablet 10 mg PO DAILY Victoza 2-Jong 0.6 mg/0.1 mL (18 mg/3 mL) pen injector 1.8 mg subcut DAILY Levemir FlexPen 100 unit/mL (3 mL) insulin pen 40 unit subcut QHS cefpodoxime 200 mg tablet 400 mg PO Q12H 7 Days Qty: 28 0RF Rx Instructions: must administer with a meal/food diclofenac sodium 75 mg tablet,delayed release (DR/EC) 75 mg PO BID PRN (Reason: pain) Qty: 20 0RF cyclobenzaprine 10 mg tablet 10 mg PO TID PRN (Reason: muscle spasm) Qty: 20 0RF famotidine [Pepcid] 20 mg tablet 20 mg PO BID Qty: 30 0RF glipizide 10 mg tablet amitriptyline 50 mg tablet meloxicam 7.5 mg tablet metformin 1,000 mg tablet cyclobenzaprine 10 mg tablet ibuprofen 800 mg tablet sertraline 100 mg tablet hydrochlorothiazide 25 mg tablet prednisone 20 mg tablet 40 mg PO DAILY 5 Days Qty: 10 0RF naproxen 500 mg tablet 500 mg PO BID Qty: 10 0RF omeprazole 40 mg capsule,delayed release(DR/EC) 40 mg PO DAILY Qty: 30 0RF hydrocodone-acetaminophen 5-325 mg tablet 1 tablet PO Q12H PRN (Reason: pain) Qty: 14 0RF cyclobenzaprine 10 mg tablet 10 mg PO BID PRN (Reason: muscle spasm) Qty: 14 0RF methylprednisolone [Medrol (Jong)] 4 mg tablets,dose pack See Rx Instructions PO .COMPLEX Qty: 21 0RF Rx Instructions: orally per package directions cyclobenzaprine 10 mg tablet 10 mg PO TID PRN (Reason: muscle spasm) Qty: 14 0RF lidocaine 5 % adhesive patch,medicated 1 patch topical DAILY Qty: 15 0RF Rx Instructions: leave on most painful area for up to 12 hrs. do not use more than 1 patch in a 24-hour period. Follow-up/Referrals: Cody,Jennifer Kraus MD [Primary Care Provider, Unknown] Time of Disposition: 20:07
[2025-01-18 21:00] VITALS: BP 110/72; PULSE 88; RESP 13; O2SAT 99
[2025-01-18 21:26] VITALS: BP 110/72; PULSE 88; RESP 13; O2SAT 99
== END 2025-01-18 21:27 | disposition home or self-care (01) ==
PROVIDERS: Emergency Medicine; Emergency Provider Family Medicine; PCP Family Medicine
DX: R07.9 Chest pain, unspecified (principal); I10 Essential (primary) hypertension; E11.9 Type 2 diabetes mellitus without complications; E78.5 Hyperlipidemia, unspecified; M19.90 Unspecified osteoarthritis, unspecified site; F41.9 Anxiety disorder, unspecified; F32.A Depression, unspecified; Z79.85 Long-term (current) use of injectable non-insulin antidiabetic drugs; Z79.84 Long term (current) use of oral hypoglycemic drugs; Z79.899 Other long term (current) drug therapy; R00.0 Tachycardia, unspecified
CPT/HCPCS: 36415; 71046; 80053; 82948; 83690; 84484; 85025; 85610; 85730; 93005; 96374; 99284; J1885